=== PATIENT | female | born 2000 | race Two or more races ===

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

== ENCOUNTER 2024-03-18 13:30 | Outpatient (REF) | payer BC, SELFPAY ==
[2024-03-18 18:46] LABS: CT PCR NOT DETECTED (Not Detect.); NG PCR NOT DETECTED (Not Detect.)
== END 2024-03-18 13:31 | disposition home or self-care (01) ==
LOC: HO.LNP 13:30
PROVIDERS: PCP Pediatrics; Visit Provider Advanced Practice Midwife
DX: Z01.419 Encounter for gynecological examination (general) (routine) without abnormal findings (principal); Z20.2 Contact with and (suspected) exposure to infections with a predominantly sexual mode of transmission
CPT/HCPCS: 0353U; 88142

== ENCOUNTER 2024-03-18 13:30 | Outpatient (AMB) | payer BC, SELFPAY ==
--- NOTE | 2024-03-18 13:36 | A.OFFVIS_ITS ---
Vital Signs 03/18/24 13:37 Height 5 ft 1 in Weight 172 lb BMI 32.5 BP 94/50 L Intake Visit Reasons: New Patient Annual Area Development Manager Required: No Information Interpreted: non-clinical & clinical Balloon Pilot: Balloon Pilot Present (Layla) Allergies chickpea Allergy (Mild, Verified 03/18/24 13:41) Difficulty Breathing kiwi Allergy (Mild, Verified 03/18/24 13:41) Swelling Is last menstrual period known: Yes Last menstrual period: 03/06/24 Post menopausal: No HPI Comments Details: She is a premenopausal woman presenting for new patient annual examination. This is her 1st pelvic exam. Doing well with no concerns: irritating skin tag on left groin she is requesting removal. History of PCOS with elevated testosterone level has been on control for many years She tries to eat healthy and stays active with exercise. Currently is not sexually active. She denies vaginal itching and irritation. STI screening offered; she accepts. Denies family history of breast, ovarian or colon cancer. She denies any contraindications to control such as: migraines with aura, history of DVT or pulmonary emboli, high blood pressure, liver disease, thrombolic disorders, Lupus, +GARRY, breast cancer, or smoking. FOR[facility]LY [facility], [facility] Medical History Eczema Asthma Social History (Updated 03/18/24 @ 13:44 by ALONDRA Noel) Alcohol intake: current Alcohol intake frequency: a few times a month Female Reproductive History Menstrual Age of Menarche: 18 Duration of menses: 3-5 days Date of last menstrual period: 03/06/24 control method: pills Total pregnancies: 0 Review of Systems Const All systems reviewed & are unremarkable except as noted in HPI and below Reports as per HPI Eyes Reports no additional complaints ENT Reports no additional complaints Card Reports no additional complaints Resp Reports no additional complaints GI Reports as per HPI and Reports no additional complaints Reports as per HPI Musc Reports no additional complaints Skin/Breast Reports as per HPI Neuro Reports no additional complaints Psych Reports no additional complaints Endo Reports no additional complaints Puma/Lymph Reports no additional complaints Aller/Immun Reports no additional complaints Physical Exam Vital Signs: Last Vital Signs BP 94/50 L 03/18/24 13:37 BMI result Body Mass Index 32.5 Const General: cooperative, healthy appearing, no acute distress, well developed and alert Orientation/consciousness: patient oriented x3 HEENT Head: Yes normal to inspection Eyes General: appearance normal, both eyes and all related structures Neck Neck: Yes normal visual inspection Thyroid: Thyroid normal Chest Chest palpation & inspection: normal inspection of the chest and other (no puckering, dimpling, peau de orange, retraction, discharge, masses) Breast/axilla inspection: normal inspection of the breasts Breast/axilla palpation: normal palpation of the breasts Resp Effort & Inspection: normal respiratory effort GI Inspection: Yes normal to inspection Palpation (GI): Soft to palpation Rectal Exam - Female: deferred Other: Large fleshy lesion, located in the lower left gluteal region, close to skin crease General: Yes bladder normal to palpation External Female Exam: normal external appearance and normal appearance of the urethra Speculum Exam - Vagina: normal appearance of the vagina, normal palpation and normal vaginal discharge Speculum Exam - Cervix: normal appearance of the cervix and normal palpation Bimanual exam- vagina & uterus: normal bimanual exam, normal palpation, uterine size normal, bladder normal to palpation, normal palpation and non-tender Bimanual Exam- Adnexa, other: no masses Skin Other: Acne General skin exam: no rashes or lesions noted Rashes: no rashes Neuro General: patient oriented x3 Cognition (Neuro): normal cognition Extrem General: Yes normal to inspection Psych Attitude: cooperative Thought process: Normal thought process present Assessment & Plan Assessment & Plan (1) Encounter for well woman exam with routine gynecological exam: Code(s): Z01.419 - Encounter for gynecological examination (general) (routine) without abnormal findings Plan Discussed: Current recommendations for pap smears per ASCCP guidelines. Breast awareness and periodic breast exams. Maintain a healthy lifestyle including a well balanced diet and routine exercise. Use condoms for STI and prevention. control hormone use warnings: go to ER if and loss of vision, blindness, severe headache, chest pain or difficulty breathing, severe abdominal pain, or any pain or swelling in an extremity. Schedule follow up with Dr. Pedroza for skin tag assessment, possible removal. Patient verbalizes understanding and agrees to the plan of care. She was given opportunity to ask questions and all questions were answered to the best of my ability. RTO in one year for annual older adult social work specialist examination. This note is constructed using voice recognition software. While every effort has been made to ensure accuracy, tape coater errors may have been included. Orders: Orders CT NG by PCR Today Z20.2 - Contact with and (suspected) exposure to infections with a predominantly sexual mode of transmission Pap Smear Today Z12.4 - Encounter for screening for malignant neoplasm of cervix Medications: New norgestimate-ethinyl estradiol 0.18/0.215/0.25 mg-25 mcg (Ppb-Gy-Ngxhnu) 1 tab PO DAILY 84 tabs 4RF Coding Level of Care Code New Pt Prev Care 18-39yr(05374 Diagnoses Encounter for well woman exam with routine gynecological exam Z01.419
[2024-03-18 13:37] VITALS: BP 94/50; BMI 32.5
== END 2024-03-18 14:34 | disposition home or self-care (01) ==
PROVIDERS: PCP Pediatrics; Visit Provider Advanced Practice Midwife
DX: Z01.419 Encounter for gynecological examination (general) (routine) without abnormal findings (principal)
CPT/HCPCS: 99385

== ENCOUNTER 2024-06-08 11:59 | Outpatient (REF) | payer BC, SELFPAY | END 2024-06-08 12:00 | disposition home or self-care (01) | LOC: HO.LNP 11:59 | PROVIDERS: PCP Pediatrics; Visit Provider Obstetrics & Gynecology | DX: D22.72 Melanocytic nevi of left lower limb, including hip (principal) | CPT/HCPCS: 11402; 88304; 88305 ==

== ENCOUNTER 2024-07-19 10:42 | Outpatient (AMB) | payer BC, SELFPAY ==
--- NOTE | 2024-07-19 10:52 | A.OFFVIS_ITS ---
Vital Signs 07/19/24 10:53 Height 5 ft 1 in Weight 171 lb 15.369 oz BMI 32.5 Intake Visit Reasons: biopsy results Allergies chickpea Allergy (Mild, Verified 06/08/24 12:03) Difficulty Breathing kiwi Allergy (Mild, Verified 06/08/24 12:03) Swelling HPI Comments Details: Presenting for follow up was excision of left thigh skin lesion. Doing well with no complaints. The pathology showed the following: Skin, left thigh, excision: Benign intradermal nevus [facility] Medical History PCOS (polycystic ovarian syndrome) Eczema Asthma Social History Alcohol intake: current Alcohol intake frequency: a few times a month Female Reproductive History Menstrual Age of Menarche: 18 Review of Systems Const All systems reviewed & are unremarkable except as noted in HPI and below Reports as per HPI and Reports no additional complaints GI Reports no additional complaints Reports no additional complaints Physical Exam Vital Signs: BMI result Body Mass Index 32.5 Assessment & Plan Assessment & Plan (1) Skin lesion: Comment: Left thigh area Code(s): L98.9 - Disorder of the skin and subcutaneous tissue, unspecified Category: Medical Plan: Discussed with the patient the results the pathology, the patient was reassured. Instructions given the patient to call in case of recurrence of any lesions any open sores or hard areas. All questions answered, the patient verbalized understanding Coding Level of Care Code Est Pt Level 3 (35308) Diagnoses Skin lesion L98.9
[2024-07-19 10:53] VITALS: BMI 32.5
== END 2024-07-19 13:37 | disposition home or self-care (01) ==
PROVIDERS: PCP Pediatrics; Visit Provider Obstetrics & Gynecology
DX: L98.9 Disorder of the skin and subcutaneous tissue, unspecified (principal)
CPT/HCPCS: 99213

== ENCOUNTER → 2024-07-19 10:42 | Outpatient (BNVA) | payer BC, SELFPAY | PROVIDERS: PCP Pediatrics; Visit Provider Obstetrics & Gynecology ==

== ENCOUNTER 2024-11-03 13:22 | Emergency (ER) | payer BC, SELFPAY ==
[2024-11-03 13:25] VITALS: BP 104/44; BP 135/78; PULSE 73; PULSE 91; RESP 18; TEMP 37; O2SAT 97; O2SAT 98; BMI 34.7
--- NOTE | 2024-11-03 13:25 | ECG_ITS ---
Test Reason : SOB Blood Pressure : / mmHG Vent. Rate : 073 BPM Atrial Rate : 073 BPM P-R Int : 160 ms QRS Dur : 076 ms QT Int : 430 ms P-R-T Axes : 065 070 049 degrees QTc Int : 473 ms Sinus rhythm with marked sinus arrhythmia Otherwise normal ECG No previous ECGs available Referred By: Generic ED Physician Electronically Signed By:STEPHEN JARA
--- NOTE | 2024-11-03 13:52 | ED.GENADULT ---
HPI - General Adult General Chief complaint: General Medical Stated complaint: SOB, sharp abdominal pain, dizziness per ems Time Seen by Provider: 11/03/24 13:36 History of Present Illness HPI narrative: Patient is a 23-year-old female presented today while running in the gym on the treadmill patient felt dizzy short of breath having some abdominal cramping. Had an episode of diarrhea no relief of pain patient had shortness of breath was given 50 of Benadryl by EMS given some fluids. Symptoms seems to have improved. Patient had had similar symptoms while running in the past. She just got on the treadmill and ran 1 mi. There is no fever no chills. There is no chest pain is no diaphoresis. Symptoms seems to have subsided. Each time these episode occur usually it is with running. Related Data Home Medications ?Medication ?Instructions ?Recorded ?Confirmed albuterol sulfate 90 mcg/actuation inhalation 03/18/24 aerosol inhaler tretinoin 0.025 % topical cream appl topical 03/18/24 Previous Rx's ?Medication ?Instructions ?Recorded norgestimate 0.18 mg/0.215 mg/0.25 1 tab PO DAILY #84 tabs 03/18/24 mg-ethinyl estradiol 25 mcg tablet (Boa-Or-Rhzilx) Allergies Allergy/AdvReac Type Severity Reaction Status Date / Time chickpea Allergy Mild Difficulty Verified 11/03/24 13:35 Breathing kiwi Allergy Mild Swelling Verified 06/08/24 12:03 Review of Systems Review of Systems: Positive shortness of breath positive diarrhea patient does not think she is [facility] Past Medical History Attestation statement: The following information was validated with the patient. Medical History PCOS (polycystic ovarian syndrome) Eczema Asthma Social History Social History Alcohol intake: current Alcohol intake frequency: a few times a month Smoked in Last 30 Days: No Use of substances other than those prescribed or required for medical reasons: No Advance Directives: No Physical Exam ED Vital Signs: Vital Signs - 24 hr 11/03/24 13:25 Temperature 98.6 F Pulse Rate 73 Respiratory Rate 18 Blood Pressure 104/44 L Pulse Oximetry 97 Oxygen Delivery Method Room Air BMI result Body Mass Index 34.7 Appearance: Alert. Oriented X3. No acute distress. Eyes: Pupils equal, round and reactive to light. ENT: Pharynx normal. Neck: Normal inspection. Neck supple. No lymph nodes noted. No crepitus CVS: Normal heart rate and rhythm. Pulses normal. Normal S1 and S2 Respiratory: No respiratory distress. Breath sounds normal. No Wheezing. No rales Abdomen: Soft and nontender. No rigidity. No distention. good BS x4 Skin: Skin warm and dry. Normal skin color. Normal skin turgor. Extremities: No lower extremity edema. Neurovascular intact to all extremities. No Lacerations. No Rash Neuro: Oriented X 3. No motor deficit. No sensory deficit. Moving all extermities. No slurred speech Medical Decision Making Medical Decision Making MDM Narrative: Well-appearing no acute distress. Lungs are clear. My interpretation patient's EKG showed a sinus rhythm heart rate is 70 there is significant sinus arrhythmia noted. QRS is normal QTC is normal there is no acute ST segment elevation. Patient's electrolytes were drawn will be checked. Currently symptom free. Will suggest patient not to exercise until follow-up with Cardiology and with primary physician Differential Diagnosis Differential Diagnoses: The differential diagnosis associated with the presentation includes Exercise induced cardiomyopathy, exercise induced asthma, electrolyte disturbance Admission/Observation Consideration of admission/observation: Escalation of care including admission/observation considered Lab Data [facility] Lab Attestation statement: I reviewed the patient's lab results. 11/03/24 14:01 11/03/24 14:01 Labs: Lab Results 11/03/24 11/03/24 Range/Units 14:01 15:21 WBC 11.0 H (4.8-10.8) X10*3/uL RBC 5.09 (4.20-5.50) X10*6/uL Hgb 15.1 (12.0-16.0) g/dl Hct 44.2 (37.0-47.0) % MCV 86.8 (80.0-98.0) fL MCH 29.7 (27.0-33.0) pg MCHC 34.2 (31.0-35.0) g/dl RDW 11.9 (11.0-16.0) % Plt Count 207 (160-400) X10*3/uL MPV 9.2 L (9.4-12.3) fL Immature Gran % (Auto) 0.3 (0.0-0.4) % Neut % (Auto) 72.2 (45-73) % Lymph % (Auto) 23.8 (20-40) % [place] % (Auto) 3.2 (2-11) % Eos % (Auto) 0.4 (0-4) % Baso % (Auto) 0.1 (0-2) % Lymph # (Auto) 2.6 (1.2-4.9) X10*3/uL [place] # (Auto) 0.4 (0.1-1.2) X10*3/uL Eos # (Auto) 0.0 (0.0-0.4) X10*3/uL Baso # (Auto) 0.0 (0.0-0.2) X10*3/uL Abs Immat Gran (auto) 0.03 (0.00-0.03) X10*3/uL Absolute Neuts (auto) 8.0 (2.0-8.3) x10*3/uL Absolute Nucleated RBC 0.000 (0.0-0.012) X10*3/uL Nucleated RBC % (auto) 0.0 (0.0-0.2) /100WBC Sodium 143 (135-145) mmol/L Potassium 3.2 L (3.3-5.1) mmol/L Chloride 108 (96-108) mmol/L Carbon Dioxide 23 (22-29) mmol/L Anion Gap 15 (12-20) BUN 10 (9-16) mg/dL Creatinine 0.75 (0.5-1.4) mg/dL Estim Creat Clear Calc 115.1 Estimated GFR > 60 Random Glucose 119 H (60-115) mg/dL Calcium 8.5 (8.4-10.2) mg/dL Total Bilirubin 1.0 (0.0-1.0) mg/dL AST 40 H (5-31) U/L ALT 47 H (0-31) U/L Alkaline Phosphatase 36 L (39-117) U/L Troponin I High Sens < 2.7 (<3.5-17.0) ng/L Total Protein 6.1 L (6.5-8.0) g/dL Albumin 3.7 (3.5-5.0) g/dL Urine Color Yellow Urine Appearance Cloudy Urine pH 7.0 (5.0-9.0) Ur Specific [place] 1.020 (1.005-1.025) Urine Protein 30 (1+) H (Neg-Trace) mg/dL Urine Glucose (UA) Negative (Negative) mg/dL Urine Ketones Negative (Negative) mg/dL Urine Blood Negative (Negative) Urine Nitrite Negative (Negative) Ur Leukocyte Esterase Negative (Negative) Urine RBC 0-2 (0-2) /HPF Urine WBC 6-10 H (0-5) /HPF Ur Squamous Epith Cells 3-5 (0-2) /HPF Urine Bacteria Trace (None Seen) Hyaline Casts 3-5 (0-2) /LPF Urine Test NEGATIVE (NEGATIVE) Independent Interpretation I performed an independent interpretation of an: EKG (Sinus rhythm heart rate is 70 MI QRS QTC normal there is significant sinus arrhythmia noted.) Discharge Plan Discharge Clinical Impression: Near syncope Patient Disposition: Home, Self-Care Instructions: Near Syncope (ED) Additional Instructions: Please refrain from running until follow-up with Cardiology and with your primary physician Prescriptions: No Action albuterol sulfate 90 mcg/actuation HFA aerosol inhaler inhalation tretinoin 0.025 % cream topical norgestimate-ethinyl estradiol [Uen-Gh-Dedfrj] 0.18/0.215/0.25 mg-25 mcg tablet 1 tab PO DAILY Qty: 84 4RF Referrals: Michel Cade MD [Physician] - 11/07/24 Print Language: Serbian
[2024-11-03 14:05] LABS: MANUAL DIFF FLAG NO
[2024-11-03 14:07] LABS: Basophils Percent Auto 0.1 % (0-2); Eosinophils Percent Auto 0.4 % (0-4); Hematocrit 44.2 % (37.0-47.0); Hemoglobin 15.1 g/dl (12.0-16.0); Imm Gran Abs Auto 0.03 X10*3/uL (0.00-0.03); Imm Gran Pct Auto 0.3 % (0.0-0.4); Lymphocytes Absolute Auto 2.6 X10*3/uL (1.2-4.9); Lymphocytes Percent Auto 23.8 % (20-40); Mean Corpuscular HGB Conc 34.2 g/dl (31.0-35.0); Mean Corpuscular Hemoglobin 29.7 pg (27.0-33.0); Mean Corpuscular Volume 86.8 fL (80.0-98.0); Mean Platelet Volume 9.2 fL (9.4-12.3); Monocytes Absolute Auto 0.4 X10*3/uL (0.1-1.2); Monocytes Percent Auto 3.2 % (2-11); Neutrophils Percent Auto 72.2 % (45-73); Platelet Count 207 X10*3/uL (160-400); Red Blood Count 5.09 X10*6/uL (4.20-5.50); Red Cell Distribution Width 11.9 % (11.0-16.0)
[2024-11-03 14:25] LABS: Albumin Level 3.7 g/dL (3.5-5.0); Anion Gap 15 (12-20); Aspartate Amino Transferase 40 U/L (5-31); Blood Urea Nitrogen 10 mg/dL (9-16); Calcium 8.5 mg/dL (8.4-10.2); Carbon Dioxide 23 mmol/L (22-29); Chloride 108 mmol/L (96-108); Creatinine Clr Calc Pharmacy 115.1; Estimated Glomerular Filt Rate > 60; Glucose Random 119 mg/dL (60-115); Potassium 3.2 mmol/L (3.3-5.1); Sodium 143 mmol/L (135-145); Total Protein 6.1 g/dL (6.5-8.0)
[2024-11-03 14:27] LABS: Troponin-I High Sensitivity < 2.7 ng/L (<3.5-17.0)
[2024-11-03 14:34] LABS: Alanine Aminotransferase 47 U/L (0-31); Alkaline Phosphatase 36 U/L (39-117)
[2024-11-03 15:28] LABS: Appearance Urine Cloudy; Color Urine Yellow; Glucose Urine UA Negative (Negative); Leukocyte Esterase Urine Negative (Negative); Nitrite Urine Negative (Negative); UMIC TRIGGER UACC YES; Urine Blood Negative (Negative); Urine Ketones Negative (Negative); Urine Protein 30 (1+) mg/dL (Neg-Trace)
[2024-11-03 15:31] LABS: Bacteria Urine Trace (None Seen); RBC Urine 0-2 /HPF (0-2); UACC Culture Trigger YES; UPreg QC Valid YES; Urine Pregnancy NEGATIVE (NEGATIVE)
[2024-11-03 16:51] VITALS: BP 104/63; PULSE 80; RESP 16; TEMP 36.6; O2SAT 98
== END 2024-11-03 16:52 | disposition home or self-care (01) ==
PROVIDERS: Emergency Provider Emergency Medicine Emergency Medical Services
DX: R55 Syncope and collapse (principal); R06.02 Shortness of breath; J45.909 Unspecified asthma, uncomplicated; R10.9 Unspecified abdominal pain; Z79.899 Other long term (current) drug therapy
CPT/HCPCS: 36415; 80053; 81001; 81025; 84484; 85025; 87086; 93005; 99283; 99284

== ENCOUNTER → 2024-11-03 13:25 | Outpatient (BNV) | payer BC, SELFPAY | PROVIDERS: Emergency Provider Emergency Medicine Emergency Medical Services; Visit Provider Internal Medicine | DX: R06.02 Shortness of breath (principal) | CPT/HCPCS: 93010 ==

== ENCOUNTER 2025-01-20 14:50 | Outpatient (REF) | payer BC, SELFPAY ==
--- OUTSIDE RECORDS SUMMARY | 2025-01-20 17:01 | XMS_ITS | Encounter Summary ---
Author Organization [facility] Address [address] [place] [address] Phone Care Team Providers Care Writing Center Director Name Role Phone Andria Parks MD Primary Care Provider [phone] Reason for Visit * Reason Comments Med Refill Encounter Details Date Type Department Care Team (Late st Contact Info) Description 06/05/2022 Refill [facility] [place] [address] [place] [address] Andria Parks MD 150 [place] [address] PCOS (polycystic ovarian syndrome) Social History Tobacco [...] is requesting BC refill. Pt transferred to vest front presser to book PE. * Telephone Encounter - Cheri Xiao LPN - 06/05/2022 8:50 AM EDT TEEN RELEASE Faxed refill request / last PE 05/20/21 no pending appts Call to pt [phone] not receiving incoming calls / call to [phone] message left to call theoffice documented in this encounter Plan of Treatment Not on file documented as of this encounter Visit Diagnoses Diagnosis PCOS (polycystic ovarian syndrome) Polycystic ovaries documented in this encounter Care Teams Writing Center Director Relationship Specialty Start Date End Date Andria Parks MD 150 [facility] [place] [address] PCP - General Pediatrics 07/27/23 09/15/23 documented as of this encounter
--- OUTSIDE RECORDS SUMMARY | 2025-01-20 17:01 | XMS_ITS | Clinical Summary ---
Author Organization [facility] Address [address] [place] [address] Phone Care Team Providers Care Belt Molder Name Role Phone Unavailable Primary Care Provider [...] 1 07/28/20 23 Active norgestimate-ethiny l estradiol (Ysv-Oh-Gsqsgh) 0.18/0.215/0.25 MG-25 MCG per tabletIndications:P COS (polycystic [...] does not remember her name (was in [place]) Seasonal allergic rhinitis 05/16/2020 Overview (05/16/2020): On [...] Followed by replacement of Dr. Howell in [place]; pt reports using all Cerave products and recently added OTC Adalapine 0.1% to face Encounters Date Type Department Care Team Description 12/19/2024 Telephone [facility] [place] [phone] Shanice Soler MD Immunizations from Last 3 [...] of Migraines, No family history of Sudden /MA under age 55, No family history of [...] Completed 07/28/2023, 05/16/2020 Procedures * Due to [facility] law, this organization might not be sharing sensitive test results. Procedure Name Priority Date/Time Associated Diagnosis Comments CHLAMYDIA AND GONORRHEA, AMPLIFIED Routine 07/28/2023 4:12 PM EDT Screening examination for bacterial and spirochetal disease from Last 3 Months or Most Recently Relevant to Health Maintenance Results * Due to [place] [employer] law, this organization might not be sharing sensitive test results. * Chlamydia and Gonorrhea, Amplified (07/28/2023 4:12 PM EDT) Chlamydia Trachomatis, DNA Probe NEGATIVE (NEG) [facility] Comment: No Chlamydia Trachomatis RNA detected in this patient's sample ? (REFERENCE RANGE/NORMAL VALUE: NOT DETECTED) ? Note: This test uses house painter helper- mediated amplification method to detect rRNA from C. Trachomatis URINE GC AMP PROBE NEGATIVE (NEG) [facility] Comment: No Neisseria Gonorrhoeae RNA detected in this patient's sample ? (REFERENCE RANGE/NORMAL VALUE: NOT DETECTED) ? NOTE: This test uses house painter helper-mediated amplification method to detect rRNA from N.Gonorrhoeae. [...] without risk of sexual abuse. Consult the [facility] if needed. Contact phone number . Therapeutic failure or success cannot be determined with the Aptima Combo2 assay since nucleic acid may persist following appropriate antimicrobial therapy. The Centers for Disease Control and Prevention (CDC) recommends confirmatory retesting using culture or a different nucleic acid amplification test when positive results occur, if indicated. Testing performed or reported by [facility], a Service of [facility], [address], [place] [address] Rogers Reyes MD, Business Development Assistant [facility]# [id number] Urine (Urine) 07/28/2023 4:1 2 PM EDT 07/29/2023 12:10 AM EDT Andria Parks MD LAB MICROBIOLOGY - GENERAL ORDERABLES Final Result [facility] from Last 3 Months or Most Recently Relevant to [place] [address] [facility] [place] [address] [facility] Member Subscriber Plan / Payer (Ef fective 2014-Present) Name:Kera Rosario Relation to Subscriber:Child Name:FITO ROSARIO Date of :1960 Address: [address] [place] [address] [place] [address] Payer ID:Not on file Type:HMO Address: [address] [place] [id number]
--- OUTSIDE RECORDS SUMMARY | 2025-01-20 17:01 | XMS_ITS | Encounter Summary ---
Author Organization [facility] Address [address] [place] [address] Phone Care Team Providers Care Zone Manager Name Role Phone Andria Parks MD Primary Care Provider Encounter Details Date Type Department Care Team (Late st Contact Info) Description 10/16/2016 Documentation [facility] Family Medicine [address] [place], [place] [phone] Family Medicine, Physician [address] [place], [place] 994571 Social History Tobacco Use Types Packs/Day Years [...] on filedocumented in this encounter Care Teams Zone Manager Relationship Specialty Start Date End Date Andria Parks MD [address] [place] [address] [place] [address] PCP - General Pediatrics 07/27/23 09/15/23 documented as of this encounter
--- OUTSIDE RECORDS SUMMARY | 2025-01-20 17:01 | XMS_ITS | Encounter Summary ---
Author Organization [facility] Address [address] [place] [address] Phone Care Team Providers Care Social Services Counselor Name Role Phone Andria Parks MD Primary Care Provider [phone] Encounter Details Date Type Department Care Team (Late st Contact Info) Description 10/16/2016 Documentation [facility] [place] Family Medicine [address] [place], [place] [phone] Family Medicine, Physician [address] [place], [place] 783641 Social History Tobacco Use Types Packs/Day Years [...] on filedocumented in this encounter Care Teams Social Services Counselor Relationship Specialty Start Date End Date Andria Parks MD [address] [place] [address] [place] [address] PCP - General Pediatrics 07/27/23 09/15/23 documented as of this encounter
--- OUTSIDE RECORDS SUMMARY | 2025-01-20 17:01 | XMS_ITS | Encounter Summary ---
Author Organization [facility] Address [address] [place] [address] Phone Care Team Providers Care Wildlife Ecology Professor Name Role Phone Andria Parks MD Primary Care Provider Encounter Details Date Type Department Care Team (Late st Contact Info) Description 04/18/2013 Documentation [facility] Family Medicine [address] [place], [place] [phone] Family Medicine, Physician [address] [place], [place] 986281 Social History Tobacco Use Types Packs/Day Years [...] on filedocumented in this encounter Care Teams Wildlife Ecology Professor Relationship Specialty Start Date End Date Andria Parks MD [address] [place] [address] [place] [address] PCP - General Pediatrics 07/27/23 09/15/23 documented as of this encounter
--- OUTSIDE RECORDS SUMMARY | 2025-01-20 17:01 | XMS_ITS | Encounter Summary ---
Author Organization [facility] Address [address] [place] [address] Phone Care Team Providers Care Shorer Name Role Phone Andria Parks MD Primary Care Provider Encounter Details Date Type Department Care Team (Late st Contact Info) Description 10/16/2016 Documentation [facility] Family Medicine [address] [place], [place] [phone] Family Medicine, Physician [address] [place], [place] [address]67[address] Social History Tobacco Use Types Packs/Day Years [...] on filedocumented in this encounter Care Teams Shorer Relationship Specialty Start Date End Date Andria Parks MD [address] [place] [address] [place] [address] PCP - General Pediatrics 07/27/23 09/15/23 documented as of this encounter
--- OUTSIDE RECORDS SUMMARY | 2025-01-20 17:01 | XMS_ITS | Encounter Summary ---
Author Organization [facility] Address [address] [place] [address] Phone Care Team Providers Care Diesel Truck Crane Operator Name Role Phone Adnria Parks MD Primary Care Provider [phone] Reason for Visit * Reason Comments Med Refill Encounter Details Date Type Department Care Team (Late st Contact Info) Description 02/13/2020 Refill [facility] [place] 150 [place] [address] Andria Parks MD 150 [place] [address] PCOS (polycystic ovarian syndrome) Social History Tobacco [...] ovaries documented in this encounter Care Teams Diesel Truck Crane Operator Relationship Specialty Start Date End Date Andria Parks MD [address] [place] [address] [place] [address] PCP - General Pediatrics 07/27/23 09/15/23 documented as of this encounter
--- OUTSIDE RECORDS SUMMARY | 2025-01-20 17:01 | XMS_ITS | Encounter Summary ---
Author Organization [facility] Address [address] [place] [address] Phone Care Team Providers Care Compensation And Benefits Manager Name Role Phone Andria Parks MD Primary Care Provider Encounter Details Date Type Department Care Team (Late st Contact Info) Description 01/07/2017 Documentation [facility] [place] [address] [place], [place] [phone] Family Medicine, Physician [address] [place], [place] 903261 Social History Tobacco Use Types Packs/Day Years [...] on filedocumented in this encounter Care Teams Compensation And Benefits Manager Relationship Specialty Start Date End Date Andria Parks MD [address] [place] [address] [place] [address] PCP - General Pediatrics 07/27/23 09/15/23 documented as of this encounter
--- OUTSIDE RECORDS SUMMARY | 2025-01-20 17:01 | XMS_ITS | Encounter Summary ---
Author Organization [facility] Address [address] [place] [address] Phone Care Team Providers Care Dialysis Equipment Technician Name Role Phone Andria Parks MD Primary Care Provider [phone] Reason for Visit * Reason Comments Med Refill Encounter Details Date Type Department Care Team (Late st Contact Info) Description 10/24/2019 Refill [facility] [place] 150 [place] [address] Andria Parks MD 150 [place] [address] PCOS (polycystic ovarian syndrome) Social History Tobacco [...] ovaries documented in this encounter Care Teams Dialysis Equipment Technician Relationship Specialty Start Date End Date Andria Parks MD [address] [place] [address] [place] [address] PCP - General Pediatrics 07/27/23 09/15/23 documented as of this encounter
--- OUTSIDE RECORDS SUMMARY | 2025-01-20 17:01 | XMS_ITS | Encounter Summary ---
Author Organization [facility] Address [address] [place] [address] Phone Care Team Providers Care Toe Trimmer Name Role Phone Andria Parks MD Primary Care Provider Encounter Details Date Type Department Care Team (Late st Contact Info) Description 07/02/2017 Conversion Encounter [facility] 150 [place] [address] Social History Tobacco Use Types Packs/Day Years [...] on filedocumented in this encounter Care Teams Toe Trimmer Relationship Specialty Start Date End Date Andria Parks MD 150 [place] [address] PCP - General Pediatrics 07/27/23 09/15/23 documented as of this encounter
--- OUTSIDE RECORDS SUMMARY | 2025-01-20 17:01 | XMS_ITS | Clinical Summary ---
Author Organization [address] [place] [address] [place] [phone] Phone Care Team Providers Care Motor Vehicle Technician Name Role Phone Thea Alvarenga MD Primary Care Provider [phone] Allergies Active Allergy Reactions Criticality Noted Date [...] PM EST Office Visit Internal Medicine - [place] 175 [facility] [address] [place] [address] Thea Alvarenga MD Near syncope [...] AM EDT Office Visit Internal Medicine - [place] [address] [phone] Thea Alvarenga MD [address] [address] Health Maintenance Due Date Last Done Comments [...] Most Recently Relevant to Health Maintenance Insurance [facility] [place] [id number] [facility] Care Teams Motor Vehicle Technician Relationship Specialty Start Date End Date Thea Alvarenga MD [address] [place] [address] PCP - General 09/21/23
--- OUTSIDE RECORDS SUMMARY | 2025-01-20 17:01 | XMS_ITS | Encounter Summary ---
Author Organization [facility] Address [address] [place] [address] Phone Care Team Providers Care Foreign Service Officer Name Role Phone Andria Parks MD Primary Care Provider Encounter Details Date Type Department Care Team (Late st Contact Info) Description 10/16/2016 Documentation [facility] Family Medicine [address] [place], [place] [phone] Family Medicine, Physician [address] [place], [place] [address] Social History Tobacco Use Types Packs/Day Years [...] on filedocumented in this encounter Care Teams Foreign Service Officer Relationship Specialty Start Date End Date Andria Parks MD [address] [place] [address] [place] [address] PCP - General Pediatrics 07/27/23 09/15/23 documented as of this encounter
[2025-01-20 17:30] LABS: HCG Quantitative < 2 mIU/mL; Thyroid Stimulating Hormone 0.79 uIU/mL (0.32-4.0)
[2025-01-21 19:19] LABS: Prolactin 8.9 ng/mL
[2025-01-30 23:44] LABS: Testosterone, Free 2.6 pg/mL (0.1-6.4); Testosterone, Total 84 ng/dL (2-45)
== END 2025-01-20 14:51 | disposition home or self-care (01) ==
LOC: HO.LAB 14:50
PROVIDERS: Visit Provider Obstetrics & Gynecology
DX: L68.0 Hirsutism (principal); L70.9 Acne, unspecified
CPT/HCPCS: 36415; 83498; 84146; 84402; 84403; 84443; 84702

== ENCOUNTER 2025-01-20 14:50 | Outpatient (AMB) | payer BC, SELFPAY ==
[2025-01-20 14:55] VITALS: BP 104/60
--- NOTE | 2025-01-20 14:55 | MHC.OFFVIS ---
Vital Signs 01/20/25 14:55 BP 104/60 Intake Visit Reasons: wants referral to endo Mailroom Associate: Mailroom Associate Present (Yadi) Accompanied by: Self / Same As Patient Allergies chickpea Allergy (Mild, Verified 01/20/25 14:55) Difficulty Breathing kiwi Allergy (Mild, Verified 01/20/25 14:55) Swelling HPI Comments Details: Presenting complaining of a long-term history of hair growth and acne. The patient was diagnose with? PCOS since then has been on control pills PFSH Medical History PCOS (polycystic ovarian syndrome) Eczema Asthma Social History Alcohol intake: current Alcohol intake frequency: a few times a month Female Reproductive History Menstrual Age of Menarche: 18 Review of Systems Const All systems reviewed & are unremarkable except as noted in HPI and below Reports as per HPI and Reports no additional complaints GI Reports no additional complaints Reports no additional complaints Physical Exam Vital Signs: Last Vital Signs BP 104/60 01/20/25 14:55 Assessment & Plan Assessment & Plan (1) Hirsutism: Code(s): L68.0 - Hirsutism Category: Medical Plan: Will order TSH, prolactin hCG, 17 hydroxyprogesterone, testosterone total and free and pelvic ultrasound. Instructions given the patient to schedule ultrasound and a follow-up appointment. All questions answered, the patient verbalized understanding. Orders: Orders Prolactin Today L68.0 - Hirsutism, L70.9 - Acne, unspecified HCG Quantitative Today L68.0 - Hirsutism, L70.9 - Acne, unspecified Thyroid Stimulating Hormone Today L68.0 - Hirsutism, L70.9 - Acne, unspecified Testosterone, Free/Total Today L68.0 - Hirsutism, L70.9 - Acne, unspecified 17 Hydroxyprogesterone Today L68.0 - Hirsutism, L70.9 - Acne, unspecified US pelvic and transvaginal Today L68.0 - Hirsutism, L70.9 - Acne, unspecified Coding Level of Care Code Est Pt Level 3 (75710) Diagnoses Hirsutism L68.0
--- OUTSIDE RECORDS SUMMARY | 2025-01-20 16:32 | XMS_ITS | Encounter Summary ---
Author Organization [facility] Address [address] [place] [address] Phone Care Team Providers Care Blood Donor Unit Assistant Name Role Phone Andria Parks MD Primary Care Provider [phone] Encounter Details Date Type Department Care Team (Late st Contact Info) Description 10/16/2016 Documentation [facility] [place] Family Medicine [address] [place], [place] [id number] Family Medicine, Physician [address] [place], [place] [phone] Social History Tobacco Use Types Packs/Day Years Used Date Smoking Tobacco: Never Assessed Comments Unknown Sex and Gender Information Value Date Recorded Sex Assigned at Not on file Legal Sex Female 4:56 PM EDT Gender Identity Female 09/24/2020 8:09 AM EST Sexual Orientation Straight 07/28/2023 9: 45 PM EDT documented as of this encounter Plan of Treatment Not on file documented as of this encounter Visit Diagnoses Not on filedocumented in this encounter Care Teams Blood Donor Unit Assistant Relationship Specialty Start Date End Date Andria Praks MD [address] [place] [address] [place] [address] PCP - General Pediatrics 07/27/23 09/15/23 documented as of this encounter
--- OUTSIDE RECORDS SUMMARY | 2025-01-20 16:32 | XMS_ITS | Encounter Summary ---
Author Organization [facility] Address [address] [place] [phone] Phone Care Team Providers Care Pipelaying Fitter Name Role Phone Andria Parks MD Primary Care Provider Encounter Details Date Type Department Care Team (Late st Contact Info) Description 01/07/2017 Documentation [facility] [place] Family Medicine [address] [place], [place] [phone] Family Medicine, Physician [address] [place], [place] [address] Social History Tobacco Use Types Packs/Day Years [...] on filedocumented in this encounter Care Teams Pipelaying Fitter Relationship Specialty Start Date End Date Andria Parks MD [address] [place] [address] [place] [address] PCP - General Pediatrics 07/27/23 09/15/23 documented as of this encounter
--- OUTSIDE RECORDS SUMMARY | 2025-01-20 16:32 | XMS_ITS | Encounter Summary ---
Author Organization [facility] Address [address] [place] [address] Phone Care Team Providers Care Auto Vinyl Top Installer Name Role Phone Andria Parks MD Primary Care Provider [phone] Reason for Visit * Reason Comments Med Refill Encounter Details Date Type Department Care Team (Late st Contact Info) Description 02/13/2020 Refill [facility] [address] [place] [address] Andria Parks MD [address] [place] [address] PCOS (polycystic ovarian syndrome) Social History Tobacco Use Types Packs/Day Years Used Date Smoking Tobacco: Never Smokeless Tobacco: Never Comments:Never smoker Alcohol Use Standard Drinks/Week Comments No 0 (1 standard drink = 0.6 oz pur e alcohol) Hunger/Food Answer Date Recorded No 05/03/2019 Stable Housing Answer Date Recorded No 11/17/2019 Transportation Concerns Answer Date Rec orded No 05/03/2019 Hazards in Home Answer Date Recorded Yes 05/03/2019 Financing Utilities Answer Date Recorde d No 05/03/2019 Safety at Home Answer Date Recorded No 05/03/2019 Outside Support Answer Date Recorded No 05/03/2019 Understanding Health Concerns Answer Da te Recorded No 05/03/2019 Financing Health Concerns Answer Date R ecorded No 05/03/2019 Missing School or Work Answer Date Valdez rded No 05/03/2019 Comments No Sex and Gender Information Value Date Recorded Sex Assigned at Not on file Legal Sex Female 4:56 PM EDT Gender Identity Female 09/24/2020 8:09 AM EST Sexual Orientation Straight 07/28/2023 9: 45 PM EDT documented as of this encounter Miscellaneous Notes * Telephone Encounter - Andria Parks MD - 02/13/2020 1:38 PM EDT Script sent. PPP * Telephone Encounter - Kaylah Baker LPN - 02/13/2020 11:32 AM EDT Needs refill on ocp's. Last pe 05/04 Last office visit 11/03 documented in this encounter Plan of Treatment Not on file documented as of this encounter Visit Diagnoses Diagnosis PCOS (polycystic ovarian syndrome) Polycystic ovaries documented in this encounter Care Teams Auto Vinyl Top Installer Relationship Specialty Start Date End Date Andria Parks MD [address] [place] [address] [place] [address] PCP - General Pediatrics 07/27/23 09/15/23 documented as of this encounter
--- OUTSIDE RECORDS SUMMARY | 2025-01-20 16:32 | XMS_ITS | Encounter Summary ---
Author Organization [facility] Address [address] [place] [address] Phone Care Team Providers Care Institute Director Name Role Phone Andria Parks MD Primary Care Provider Encounter Details Date Type Department Care Team (Late st Contact Info) Description 07/02/2017 Conversion Encounter [facility] [address] [place] [address] Social History Tobacco Use Types Packs/Day Years Used Date Smoking Tobacco: Never Comments:Never smoker Comments Unknown Sex and Gender Information Value Date Recorded Sex Assigned at Not on file Legal Sex Female 4:56 PM EDT Gender Identity Female 09/24/2020 8:09 AM EST Sexual Orientation Straight 07/28/2023 9: 45 PM EDT documented as of this encounter Plan of Treatment Not on file documented as of this encounter Visit Diagnoses Not on filedocumented in this encounter Care Teams Institute Director Relationship Specialty Start Date End Date Andria Parks MD [address] [place] [address] PCP - General Pediatrics 07/27/23 09/15/23 documented as of this encounter
--- OUTSIDE RECORDS SUMMARY | 2025-01-20 16:32 | XMS_ITS | Encounter Summary ---
Author Organization [facility] Address [address] [place] [address] Phone Care Team Providers Care Mechanotherapist Name Role Phone Andria Parks MD Primary Care Provider Encounter Details Date Type Department Care Team (Late st Contact Info) Description 10/16/2016 Documentation [facility] [place] Family Medicine [address] [place], [place] [phone] Family Medicine, Physician [address] [place], [place] [phone] Social History Tobacco Use Types Packs/Day Years [...] on filedocumented in this encounter Care Teams Mechanotherapist Relationship Specialty Start Date End Date Andria Parks MD [address] [place] [address] [place] [address] PCP - General Pediatrics 07/27/23 09/15/23 documented as of this encounter
--- OUTSIDE RECORDS SUMMARY | 2025-01-20 16:32 | XMS_ITS | Clinical Summary ---
Author Organization [facility] Address [address] [place] [phone] Phone Care Team Providers Care Gang Leader Name Role Phone Unavailable Primary Care Provider Unavailabl e Allergies Active Allergy Reactions Criticality Noted Date Comments Environmental 03/30/2018 Food Hives 12/30/2017 Kiwi Gluten (Food) Anaphylaxis High 07/28/2023 Chick peas Medications Spacer/Aero-Holding Chambers (OPTICHAMBER ADVANTAGE) miscIndications:Mil d intermittent asthma without complication Use with inhaler as instructed 1 each 03/30/20 18 Active cetirizine (ZyrTEC Allergy) 10 MG tabletIndications:P ruritus of skin Take 1 tablet (10 mg total) by mouth daily as needed (itchy skin). 30 tablet 12/14/19 21 Active ProAir HFA 108 (90 Base) MCG/ACT inhalerIndications: Mild intermittent asthma without complication INHALE 2 PUFFS BY MOUTH EVERY 4 HOURS NEEDED FOR WHEEZING 1 Units 05/06/20 21 Active spironolactone 50 MG tablet 09/11/20 21 Active triamcinolone 0.1 % ointmentIndications :Intrinsic eczema Apply topically 2 (two) times a day as needed for rash. 45 g 1 07/02/20 22 Active Additional Information Patient not taking.Reported on 07/28/2023 hydrOXYzine 10 MG tabletIndications:A nxiety Take 1 tablet (10 mg total) by mouth every 8 (eight) hours as needed for anxiety for up to 10 days. 30 tablet 07/02/20 22 Active Levocetirizine Dihydrochloride (XYZAL PO) Take by mouth. Acti ve albuterol HFA 108 (90 Base) MCG/ACT inhalerIndications: Mild intermittent asthma without complication Inhale 2 puffs every 4 (four) hours as needed for wheezing or shortness of breath. 1 Units 07/28/20 23 Active Spacer/Aero-Holding Chambers (OptiChamber Hiwot) miscIndications:Mil d intermittent asthma without complication Use with MDI as instructed 1 each 1 07/28/20 23 Active norgestimate-ethiny l estradiol (Geg-Ju-Utqbge) 0.18/0.215/0.25 MG-25 MCG per tabletIndications:P COS (polycystic ovarian syndrome) TAKE 1 TABLET BY MOUTH EVERY DAY IN THE MORNING 84 tablet 3 07/29/20 23 Active Active Problems Problem Noted Date Diagnosed Date Class 1 obesity 07/28/2023 History of COVID-19 11/13/2020 Overview (11/18/2021): Tested At Stop [facility] Spread [facility] on 11/12/2020 11/15/2021: Positive for Covid again Assessment & Plan (11/18/2021 2:57 PM EST): Second time patient has had Covid. Previously had Covid on 11/12/2020. I strongly encouraged that she get the Covid 19 vaccine when she is feeling better. I have also recommended the flu vaccine for her. Assessment & Plan (12/14/2020 11:39 AM EST): Pt afeb no URI symptoms; now doing well except rash on neck x 1 week Anxiety disorder 10/15/2020 Overview (05/20/2021): Better in 2020 since she moved out of Mom's home. Had a therapist but took a break - was too busy. She does not remember her name (was in [place]) Seasonal allergic rhinitis 05/16/2020 Overview (05/16/2020): On Xyzal Influenza vaccine refused 09/30/2019 Overview (09/30/2019): Declined 09/2019 PCOS (polycystic ovarian syndrome) 08/31/2018 Overview (05/16/2020): Seen by [facility] 08/03 - had delayed menarche, hirsutism and elevated testosterone. Prolactin was high but normalized. Started on OCPs to help slow the growth of new hair. Had virtual visit a couple of weeks ago - may start on a new medication Mild intermittent asthma without complication Overview (05/05/2019): Albuterol as needed BMI (body mass index), pedia tric, greater than or equal to 95% for age 0403/11/2011 Atopic dermatitis 03/05/2010 Overview (05/16/2020): Severe - followed by Derm Assessment & Plan (12/14/2020 11:40 AM EST): Followed by replacement of Dr. Howell in [place]; pt reports using all Cerave products and recently added OTC Adalapine 0.1% to face Encounters Date Type Department Care Team Description 12/19/2024 Telephone [facility] [place] [phone] Shanice Soler MD Immunizations from Last 3 Months Immunizations Immunization Administration Dates Next Due DTaP 5 12/05/2005, 3,06/20/2002, 002,02/11/2002 HPV Vaccine 9 Valent 08/29/2016,04/28/2016 HPV, Quadrivalent 04/10/2015 Hep A, ped/adol 10/19/2014,04/03/2014 Hep B, ped/adol 09/02/2002,2001,2001 Hib (PRP-T) 02/28/2003, 2,04/15/2002, 002 IPV 12/05/2005, 2,04/15/2002, 002 MMR 12/05/2005,11/28/2002 Meningococcal B Trumenba 07/28/2023,05/16/2020 Meningococcal Conj (Menactra) MCV4P 05/03/2019,0 03/15/2013 Pneumococcal Conjugate 06/05/2003,2001,04/15/2002, 002 Tdap 07/28/2023,03/15/2013 Varicella 04/03/2014,11/28/2002 Family History Medical History Relation Name Comments No Known Problems Father Fito Rosario No Known Problems Mother Amber Rosario Relation Name Status Comments Father Fito Rosario Alive Father: Alive a nd well Half-Brother Alive Half brother (P ): Alive and well Half-Sister Alive Half sister (P) : Alive and well, Alive and well Mother Amber Rosario Alive Mother: Alive and well Other No family histo ry of Developmental dislocation of hip, No family history of Autism, No family history of Seizure disorder, No family history of ADD/ADHD, No family history of Deafness, No family history of Diabetes mellitus, No family history of Elevated cholesterol, No family history of Migraines, No family history of Sudden /HI under age 55, No family history of Obesity, No family history of Asthma, No family history of Strabismus/amblyopia Social History Tobacco Use Types Packs/Day Years Used Date Smoking Tobacco: Never Smokeless Tobacco: Never Tobacco Cessation:Counseling Given: Yes Comments:Never smoker Alcohol Use Standard Drinks/Week Comments No 0 (1 standard drink = 0.6 oz pur e alcohol) Hunger/Food Answer Date Recorded In the last 12 months, did y ou or your family ever eat less than you felt you should because there wasn't enough money for food? No 07/28/2023 Stable Housing Answer Date Recorded Are you worried that in the next 2 months you may not have stable housing? No 07/28/2023 Transportation Concerns Answer Date Rec orded In the last 12 months, have you or your family ever had to go without healthcare because you didn't have a way to get there? No 07/28/2023 Hazards in Home Answer Date Recorded Think about the place you li ve. Do you have problems with any of the following? Pests (mice or roaches), mold, no/not working smoke detectors, water leaks, no window guards. No 2022 Financing Utilities Answer Date Recorde d In the last 12 months, has t he electric, gas, oil, or water company threatened to shut off your services in your home? No 07/28/2023 Safety at Home Answer Date Recorded Are you or your family worried about feeling saf e in your home? No 07/28/2023 Outside Support Answer Date Recorded Do you feel that you need mo re support from other people or programs to help you care for yourself or your family? Yes 07/28/2023 Understanding Health Concerns Answer Da te Recorded Do you need help understandi ng your or your child's healthcare needs (diagnosis, medications, plan, etc.)? No 07/28/2023 Financing Health Concerns Answer Date R ecorded In the last 12 months, was t here a time when your child needed to see a doctor or get medications or supplies but could not because of cost? No 07/28/2023 Missing School or Work Answer Date Valdez rded Did you or your child miss s chool or work because of a health problem that could have been avoided? No 07/28/2023 Comments No Sex and Gender Information Value Date Recorded Sex Assigned at Not on file Legal Sex Female 4:56 PM EDT Gender Identity Female 09/24/2020 8:09 AM EST Sexual Orientation Straight 07/28/2023 9: 45 PM EDT Last Filed Vital Signs Vital Sign Reading Time Taken Comments Blood Pressure 114/67 07/28/2023 3:04 PM EDT Pulse 87 07/28/2023 3:04 PM EDT Temperature 36.1 ??C (97 ??F) 07/02/2022 9:27 AM EDT Respiratory Rate 18 04/28/2018 3:35 PM EDT Oxygen Saturation 100% 03/24/2022 3:59 PM EDT Inhaled Oxygen Concentration - - Weight 76.4 kg (168 lb 6.4 oz) 07/28/2023 3:04 P M EDT Height 154 cm (5' 0.63 ) 07/28/2023 3:04 PM EDT Body Mass Index 32.21 07/28/2023 3:04 PM EDT Plan of Treatment Health Maintenance Due Date Last Done Comments Influenza Vaccines (#1) 2024 COVID-19 Vaccine ( - 2023-2 5 season) 2024 DTaP,Tdap,and Td Vaccines (8 - Td or Tdap) 07/28/2033 07/28/2023, 03/15/2013, 12/05/2005, Additional history exists Hepatitis B Vaccines Completed 09/02/2002, 2001, 2001 HIB Vaccines Completed 02/28/2003, 03/2002, 04/15/2002, Additional history exists Pneumococcal Vaccine Completed 06/05/2003, 06/20/2002, 04/15/2002, Additional history exists IPV Vaccines Completed 12/05/2005, 08/16, 04/15/2002, Additional history exists MMR Vaccines Completed 12/05/2005, 11/28/2002 Varicella Vaccines Completed 04/03/2014, 11/28/2002 Hepatitis A Vaccines Completed 10/19/2014, 04/03/20 14 HPV Vaccines Completed 08/29/2016, 04/16, 04/10/2015 Meningococcal Vaccine Completed 05/03/2019, 013 Men B Vaccine Completed 07/28/2023, 05/16/2020 Procedures * Due to [facility] law, this organization might not be sharing sensitive test results. Procedure Name Priority Date/Time Associated Diagnosis Comments CHLAMYDIA AND GONORRHEA, AMPLIFIED Routine 07/28/2023 4:12 PM EDT Screening examination for bacterial and spirochetal disease from Last 3 Months or Most Recently Relevant to Health Maintenance Results * Due to [place] [employer] law, this organization might not be sharing sensitive test results. * Chlamydia and Gonorrhea, Amplified (07/28/2023 4:12 PM EDT) Chlamydia Trachomatis, DNA Probe NEGATIVE (NEG) [facility] Comment: No Chlamydia Trachomatis RNA detected in this patient's sample ? (REFERENCE RANGE/NORMAL VALUE: NOT DETECTED) ? Note: This test uses preventive medicine officer- mediated amplification method to detect rRNA from C. Trachomatis URINE GC AMP PROBE NEGATIVE (NEG) [facility] Comment: No Neisseria Gonorrhoeae RNA detected in this patient's sample ? (REFERENCE RANGE/NORMAL VALUE: NOT DETECTED) ? NOTE: This test uses preventive medicine officer-mediated amplification method to detect rRNA from N.Gonorrhoeae. A negative result does not preclude infection. In the case of a negative urine result, testing of an endocervical(female) or urethral (male) specimen is recommended if there is high clinical suspicion of infection. Due to very high sensitivity of Nucleic Acid Amplification Test, false positive results may occur. Therefore, specimen handling is extremely important. In patients in whom the disease is unlikely, additional sample for testing should be considered after an initial positive result. The performance characteristics of this test have not been evaluated in children. The Aptima Combo2 assay is not intended for the evaluation of suspected sexual abuse or for other medico-legal indications. The ordering provider should assess if the patient had consensual sex without risk of sexual abuse. Consult the [facility] if needed. Contact phone number . Therapeutic failure or success cannot be determined with the Aptima Combo2 assay since nucleic acid may persist following appropriate antimicrobial therapy. The Centers for Disease Control and Prevention (CDC) recommends confirmatory retesting using culture or a different nucleic acid amplification test when positive results occur, if indicated. Testing performed or reported by [facility], a Service of [facility], [address], [place] [address] [place] Reyes MD, Clearing Inspector [facility]# [id number] Urine (Urine) 07/28/2023 4:1 2 PM EDT 07/29/2023 12:10 AM EDT Andria Parks MD LAB MICROBIOLOGY - GENERAL ORDERABLES Final Result [facility] from Last 3 Months or Most Recently Relevant to [place] [address] [facility] [facility] [place] [address] [employer] [place] [employer] Member Subscriber Plan / Payer (Ef fective 2014-Present) Name:Kera Rosario Relation to Subscriber:Child Name:FITO ROSARIO Date of :1961 Address: [address] [place] [address] [place] [address] Payer ID:Not on file Type:HMO Address: [address] [place] [id number]
--- OUTSIDE RECORDS SUMMARY | 2025-01-20 16:32 | XMS_ITS | Encounter Summary ---
Author Organization [facility] Address [address] [place] [address] Phone Care Team Providers Care Watershed Coordinator Name Role Phone Andria Parks MD Primary Care Provider [phone] Reason for Visit * Reason Comments Med Refill Encounter Details Date Type Department Care Team (Late st Contact Info) Description 10/24/2019 Refill [facility] [place] [address] [place] [address] Andria Parks MD [address] [place] [address] PCOS (polycystic ovarian syndrome) Social History Tobacco Use Types Packs/Day Years Used Date Smoking Tobacco: Never Smokeless Tobacco: Never Comments:Never smoker Alcohol Use Standard Drinks/Week Comments No 0 (1 standard drink = 0.6 oz pur e alcohol) Hunger/Food Answer Date Recorded No 05/03/2019 Stable Housing Answer Date Recorded 0 05/03/2019 Transportation Concerns Answer Date Rec orded No [...] Telephone Encounter - Andria Parks MD - 10/24/2019 5:31 PM EST Script sent. PPP * Telephone Encounter - Nadia Watts LPN - 10/24/2019 3:25 PM EST Refill request for OCP's. Last PE 05/03/19/JOD documented in this encounter Plan of Treatment Not on file documented as of this encounter Visit Diagnoses Diagnosis PCOS (polycystic ovarian syndrome) Polycystic ovaries documented in this encounter Care Teams Watershed Coordinator Relationship Specialty Start Date End Date Andria Parks MD [address] [place] [address] [place] [address] PCP - General Pediatrics 07/27/23 09/15/23 documented as of this encounter
--- OUTSIDE RECORDS SUMMARY | 2025-01-20 16:32 | XMS_ITS | Encounter Summary ---
Author Organization [facility] Address [address] [place] [address] Phone Care Team Providers Care Foam Machine Operator Name Role Phone Andria Parks MD Primary Care Provider Encounter Details Date Type Department Care Team (Late st Contact Info) Description 10/16/2016 Documentation [facility] [place] [address] [place], [place] [phone] Family Medicine, Physician [address] [place], [place] [phone] Social History Tobacco Use Types Packs/Day Years [...] on filedocumented in this encounter Care Teams Foam Machine Operator Relationship Specialty Start Date End Date Andria Parks MD [address] [place] [address] [place] [address] PCP - General Pediatrics 07/27/23 09/15/23 documented as of this encounter
--- OUTSIDE RECORDS SUMMARY | 2025-01-20 16:32 | XMS_ITS | Encounter Summary ---
Author Organization [facility] Address [address] [place] [address] Phone Care Team Providers Care Plan Nurse Name Role Phone Andria Parks MD Primary Care Provider Encounter Details Date Type Department Care Team (Late st Contact Info) Description 10/16/2016 [place]ation [facility] [place] [address] [place], [place] [phone] Family Medicine, Physician [address] [place], [place] [phone] Social History Tobacco Use Types Packs/Day Years [...] on filedocumented in this encounter Care Teams Plan Nurse Relationship Specialty Start Date End Date Andria Parks MD [address] [place] [address] [place] [address] PCP - General Pediatrics 07/27/23 09/15/23 documented as of this encounter
--- OUTSIDE RECORDS SUMMARY | 2025-01-20 16:32 | XMS_ITS | Encounter Summary ---
Author Organization [facility] Address [address] [place] [address] Phone Care Team Providers Care Lead Portfolio Manager Name Role Phone Andria Parks MD Primary Care Provider Encounter Details Date Type Department Care Team (Late st Contact Info) Description 04/18/2013 Documentation [facility] [place] [address] [place], [place] [phone] Family Medicine, Physician [address] [place], [place] [phone] Social History Tobacco Use Types Packs/Day Years [...] on filedocumented in this encounter Care Teams Lead Portfolio Manager Relationship Specialty Start Date End Date Andria Parks MD [address] [place] [address] [place] [address] PCP - General Pediatrics 07/27/23 09/15/23 documented as of this encounter
--- OUTSIDE RECORDS SUMMARY | 2025-01-20 16:32 | XMS_ITS | Encounter Summary ---
Author Organization [facility] Address [address] [place] [address] Phone Care Team Providers Care Audioprosthologist Name Role Phone Andria Parks MD Primary Care Provider [phone] Reason for Visit * Reason Comments Med Refill Encounter Details Date Type Department Care Team (Late st Contact Info) Description 06/05/2022 Refill [facility] [place] [address] [place] [address] Andria Parks MD [address] [place] [address] PCOS (polycystic ovarian syndrome) Social History Tobacco [...] there wasn't enough money for food? No 05/20/2021 Stable Housing Answer Date Recorded Are you worried that in the next 2 months you may not have stable housing? No 05/20/2021 Transportation Concerns Answer Date Rec orded In the last 12 months, have you or your family ever had to go without healthcare because you didn't have a way to get there? No 05/20/2021 Hazards in Home Answer Date Recorded Think about the place you li ve. Do you have problems with any of the following? Pests (mice or roaches), mold, no/not working smoke detectors, water leaks, no window guards. No 2020 Financing Utilities Answer Date Recorde d In the last 12 months, has t he electric, gas, oil, or water company threatened to shut off your services in your home? No 05/20/2021 Safety at Home Answer Date Recorded Are you or your family worried about feeling saf e in your home? No 05/20/2021 Outside Support Answer Date Recorded Do you feel that you need mo re support from other people or programs to help you care for yourself or your family? No 05/20/2021 Understanding Health Concerns Answer Da te Recorded Do you need help understandi ng your or your child's healthcare needs (diagnosis, medications, plan, etc.)? No 05/20/2021 Financing Health Concerns Answer Date R ecorded In the last 12 months, was t here a time when your child needed to see a doctor or get medications or supplies but could not because of cost? No 05/20/2021 Missing School or Work Answer Date Valdez rded Did you or your child miss s chool or work because of a health problem that could have been avoided? No 05/20/2021 Comments No Sex and Gender Information Value Date Recorded Sex Assigned at Not on file Legal Sex Female 4:56 PM EDT Gender Identity Female 09/24/2020 8:09 AM EST Sexual Orientation Straight 07/28/2023 9: 45 PM EDT documented as of this encounter Miscellaneous Notes * Telephone Encounter - Andria Parks MD - 06/05/2022 1:14 PM EDT Script sent. Has PE scheduled for June. PPP * Telephone Encounter - Luz Marina Jaimes LPN - 06/05/2022 11:11 AM EDT Pt returning call. Pt is requesting BC refill. Pt transferred to front end developer to book PE. * Telephone Encounter - Cheri Xiao LPN - 06/05/2022 8:50 AM EDT TEEN RELEASE Faxed refill request / last PE 05/20/21 no pending appts Call to pt [phone] not receiving incoming calls / call to [phone] message left to call theoffice documented in this encounter Plan of Treatment Not on file documented as of this encounter Visit Diagnoses Diagnosis PCOS (polycystic ovarian syndrome) Polycystic ovaries documented in this encounter Care Teams Audioprosthologist Relationship Specialty Start Date End Date Andria Parks MD [address] [facility] [place] [address] PCP - General Pediatrics 07/27/23 09/15/23 documented as of this encounter
--- OUTSIDE RECORDS SUMMARY | 2025-01-20 16:32 | XMS_ITS | Clinical Summary ---
Author Organization [address] [place] [address] [place] [phone] Phone Care Team Providers Care Orthotic Technician Name Role Phone Thea Alvarenga MD Primary Care Provider [phone] Allergies Active Allergy Reactions Criticality Noted Date Comments Kiwi (Actinidia Chinensis) 4 Medications cetirizine (ZyrTEC) 10 mg tablet Take 1 Tablet by mouth 2 times daily. 4 Active colloidal oatmeaL (Eucerin Eczema Relief) 2 % cleanser Apply 1 g topically daily. 4 Active hydrocortisone 2.5 % cream Apply 2 times/day for 3 weeks 4 Active montelukast (SINGULAIR) 10 mg tablet Take 1 Tablet by mouth at bedtime for 360 days. 4 06/29/20 25 Active albuterol HFA (PROAIR HFA ; PROVENTIL HFA ; VENTOLIN HFA) 90 mcg/actuation inhaler Inhale 2 puffs by mouth every 4 (four) hours if needed for wheezing or shortness of breath. 6.7 g 11 5 12/05/19 26 Active Active Problems Problem Noted Date Diagnosed Date Asthma 01/14/2024 Eczema 01/14/2024 Obesity (BMI 30-39.9) 12/25/2023 Encounters Date Type Department Care Team Description 12/05/2024 3:00 PM EST Office Visit Internal Medicine - [place] 175 [facility] [address] [place] [address] Thea Alvarenga MD Near syncope (Primary Dx); Obesity (BMI 30-39.9); Mild intermittent asthma, unspecified whether complicated from Last 3 Months Immunizations Name Administration Dates Next Due Tdap Tetanus diptheria acell ular pertussis (Boostrix; Adacel) 7yo and older 12/23/2023 Surgical History Surgery Date Site/Laterality Comments OTHER SURGICAL HISTORY 2017 Bilateral PROCEDURE: EXTRACTION ERUPTED TOOTH/EXR Medical History Medical History Date Comments Obesity (BMI 30-39.9) 12/25/2023 DX:Obesity (BMI 30-39.9) Eczema 01/14/2024 DX:Eczema Asthma 01/14/2024 DX:Asthma Family History Relation Name Status Comments Maternal Grandfather Maternal Grandmother Alive Paternal Grandfather Paternal Grandmother Alive Social History Tobacco Use Types Packs/Day Years Used Date Smoking Tobacco: Never Smokeless Tobacco: Never Tobacco Cessation:Counseling Given: Not Answered Alcohol Use Standard Drinks/Week Comments Yes 0 (1 standard drink = 0.6 oz pur e alcohol) Comments Unknown Sex and Gender Information Value Date Recorded Sex Assigned at Not on file Legal Sex Female 11:04 AM EDT Gender Identity Not on file Sexual Orientation Not on file Obstetrics History Last Filed Vital Signs Vital Sign Reading Time Taken Comments Blood Pressure 122/74 12/05/2024 3:16 PM EST Pulse 80 12/05/2024 3:16 PM EST Temperature 36.7 ??C (98.1 ??F) 12/05/2024 3:16 PM ES T Respiratory Rate - - Oxygen Saturation 100% 12/05/2024 3:16 PM EST Inhaled Oxygen Concentration - - Weight 81.6 kg (180 lb) 12/05/2024 3:16 PM EST Height 154.9 cm (5' 1 ) 12/05/2024 3:16 PM EST Body Mass Index 34.01 12/05/2024 3:16 PM EST Plan of Treatment Upcoming Encounters Date Type Department Care Team (Late st Contact Info) Description 07/06/2025 11:30 AM EDT Office Visit Internal Medicine - [place] [address] [phone] Thea Alvarenga MD [address] [address] Health Maintenance Due Date Last Done Comments Gonorrhea/Chlamydia Screening 2001 Pneumococcal Vaccine: Pediatrics (0 to 5 Years) and At-Risk Patients (6 to 64 Years) (1 of 1 - PPSV23) 2007 06/05/2003, 06/20/2002, 04/15/2002, Additional history exists Cervical Cancer Screening: Pap Smear 2022 Depression Screening 06/09/2024 HIV Screening 06/09/2024 Social Influencers of Health Screening 06/09/2024 COVID-19 Vaccine ( season) 2024 Influenza Vaccine (#1) 2024 Cholesterol Screening (Lipid Panel) 12/25/2028 12/25/2023 DTaP,Tdap,and Td Vaccines (9 - Td or Tdap) 12/23/2033 12/23/2023, 07/28/2023, 03/15/2013, Additional history exists Hepatitis B Vaccines Completed 09/02/2002, 2001, 2001 HIB Vaccines Completed 02/28/2003, 03/2002, 04/15/2002, Additional history exists IPV Vaccines Completed 12/05/2005, 08/16, 04/15/2002, Additional history exists MMR Vaccines Completed 12/05/2005, 11/28/2002 Varicella Vaccines Completed 04/03/2014, 11/28/2002 Hepatitis A Vaccines Completed 10/19/2014, 04/03/20 14 HPV Vaccines Completed 08/29/2016, 04/16, 04/10/2015 Meningococcal ACWY Vaccine Completed 05/03/2019, Meningococcal B Vacine Completed 07/28/2023, 2019 Hepatitis C Screening Completed 12/25/2023 RSV Immunization Patients Under 20 months Aged Out No longer eligible based on patient's age to complete this topic Procedures Procedure Name Priority Date/Time Associated Diagnosis Comments HEPATITIS C SCREENING Routine 12/25/2023 LIPID PANEL Routine 12/25/2023 from Last 3 Months or Most Recently Relevant to Health Maintenance Results * Hepatitis C Screening (12/25/2023) Hepatitis C Screening Abstracted us Historical Provider HEALTH MAINTENANCE Final Result * Lipid panel (12/25/2023) LDL/HDL Ratio 2 0 - 4 Triglycerides 38 0 - 150 mg/dL Cholesterol 158 0 - 200 mg/dL HDL 88 >=40 mg/dL LDL Cholesterol 63 0 - 100 mg/dL Blood Venous blood specimen / Unknown Historical Provider LAB BLOOD ORDERABLES Sandrine l Result from Last 3 Months or Most Recently Relevant to Health Maintenance Insurance [facility] [place] [id number] [facility] Member Subscriber Plan / Payer (Ef fective 2021-Present) Name:Kera Rosario Relation to Subscriber:Child Name:DOMINIQUE ROSARIO Date of :1960 Address: [address] [place] [address] [place] [address] Payer ID:[id number] Type:Not on file Address: [facility] [id number] [place] [address] Care Teams Orthotic Technician Relationship Specialty Start Date End Date Thea Alvarenga MD [address] [place] [address] PCP - General 09/21/23
== END 2025-01-20 15:21 | disposition home or self-care (01) ==
PROVIDERS: Visit Provider Obstetrics & Gynecology
DX: L68.0 Hirsutism (principal)
CPT/HCPCS: 99213

== ENCOUNTER 2025-02-13 12:55 | Outpatient (REF) | payer BC, SELFPAY ==
--- NOTE | ~2025-02-13 | US_ITS ---
CLINICAL HISTORY: L70.9 - Acne, unspecified US female pelvis LMP:5 days ago. Technique: Ultrasound examination of the pelvis was performed with transabdominal technique. Transvaginal images were attempted, however not completed. Comparison: None Findings: Anteverted uterus measuring 7.6 x 2.6 x 3.7cm without masses. Normal endometrial thickness of 0.7cm. The right ovary is normal in size, measuring 5.1 x 1.7 x 2.2cm, volume of 10.0mL. There is normal echogenicity and vascularity. No lesions. There are numerous small follicles. The left ovary is enlarged, measuring 5.1 x 3.6 x 4.5cm, volume of 43.3mL. There is normal echogenicity and vascularity. Simple cyst measuring 3.0 x 2.8 x 4.4 cm. There is a trace amount of fluid, which is likely physiologic. Impression: Enlarged left ovary secondary to a simple cyst measuring 4.4 cm. No follow up is required. Suspect polycystic ovarian morphology. This document has been electronically signed by: Stephanie Wong MD on 02/13/2025 13:59:46
--- OUTSIDE RECORDS SUMMARY | 2025-02-13 14:29 | XMS_ITS | Encounter Summary ---
Author Organization [facility] Address [address] [place] [address] Phone Care Team Providers Care Insole Reinforcer Name Role Phone Andria Parks MD Primary Care Provider Encounter Details Date Type Department Care Team (Late st Contact Info) Description 10/16/2016 Documentation [facility] [place] Family Medicine [address] [place], [place] [phone] Family Medicine, Physician [address] [place], [place] [address]401 Social History Tobacco Use Types Packs/Day Years [...] on filedocumented in this encounter Care Teams Insole Reinforcer Relationship Specialty Start Date End Date Andria Parks MD [address] [place] [address] [place] [address] PCP - General Pediatrics 07/27/23 09/15/23 documented as of this encounter
--- OUTSIDE RECORDS SUMMARY | 2025-02-13 14:29 | XMS_ITS | Encounter Summary ---
Author Organization [facility] Address [address] [place] [address] Phone Care Team Providers Care Staff Electronic Warfare Officer Name Role Phone Andria Parks MD Primary Care Provider Encounter Details Date Type Department Care Team (Late st Contact Info) Description 10/16/2016 Documentation [facility] [place] Family Medicine [address] [place], [place] [phone] Family Medicine, Physician [address] [place], [place] [address] Social History Tobacco Use Types Packs/Day Years [...] on filedocumented in this encounter Care Teams Staff Electronic Warfare Officer Relationship Specialty Start Date End Date Andria Parks MD [address] [place] [address] [place] [address] PCP - General Pediatrics 07/27/23 09/15/23 documented as of this encounter
--- OUTSIDE RECORDS SUMMARY | 2025-02-13 14:29 | XMS_ITS | Encounter Summary ---
Author Organization [facility] Address [address] [place] [address] Phone Care Team Providers Care Anthropology Faculty Member Name Role Phone Andria Parks MD Primary Care Provider [phone] Reason for Visit * Reason Comments Med Refill Encounter Details Date Type Department Care Team (Late st Contact Info) Description 10/24/2019 Refill [facility] [place] 150 [place] [address] Andria Parks MD 150 [place] [address] PCOS (polycystic ovarian syndrome) Social History Tobacco [...] ovaries documented in this encounter Care Teams Anthropology Faculty Member Relationship Specialty Start Date End Date Andria Parks MD [address] [place] [address] [place] [address] PCP - General Pediatrics 07/27/23 09/15/23 documented as of this encounter
--- OUTSIDE RECORDS SUMMARY | 2025-02-13 14:29 | XMS_ITS | Encounter Summary ---
Author Organization [facility] Address [address] [place] [address] Phone Care Team Providers Care Sales Appointment Coordinator Name Role Phone Andria Parks MD Primary Care Provider Encounter Details Date Type Department Care Team (Late st Contact Info) Description 04/18/2013 Documentation [facility] [place] Family Medicine [address] [place], [place] [phone] Family Medicine, Physician [address] [place], [place] 477871 Social History Tobacco Use Types Packs/Day Years [...] on filedocumented in this encounter Care Teams Sales Appointment Coordinator Relationship Specialty Start Date End Date Andria Parks MD [address] [place] [address] [place] [address] PCP - General Pediatrics 07/27/23 09/15/23 documented as of this encounter
--- OUTSIDE RECORDS SUMMARY | 2025-02-13 14:29 | XMS_ITS | Encounter Summary ---
Author Organization [facility] Address [address] [place] [address] Phone Care Team Providers Care Armor Reconnaissance Vehicle Driver Name Role Phone Andria Parks MD Primary Care Provider Encounter Details Date Type Department Care Team (Late st Contact Info) Description 07/02/2017 Conversion Encounter [facility] 150 [place] [address] Social History Tobacco Use Types Packs/Day Years [...] on filedocumented in this encounter Care Teams Armor Reconnaissance Vehicle Driver Relationship Specialty Start Date End Date Andria Parks MD 150 [place] [address] PCP - General Pediatrics 07/27/23 09/15/23 documented as of this encounter
--- OUTSIDE RECORDS SUMMARY | 2025-02-13 14:29 | XMS_ITS | Clinical Summary ---
Author Organization [address] [place] [address] [place] [phone] Phone Care Team Providers Care Box Gluer Name Role Phone Thea Alvarenga MD Primary Care Provider [phone] Allergies Active Allergy Reactions Criticality Noted Date [...] PM EST Office Visit Internal Medicine - [place] [address] [facility] [address] [place] [address] Thea Alvarenga MD Near syncope [...] AM EDT Office Visit Internal Medicine - [place] [address] [phone] Thea Alvarenga MD [address] [address] Health Maintenance Due Date Last Done Comments [...] Most Recently Relevant to Health Maintenance Insurance [facility] [place] [id number] [facility] Care Teams Box Gluer Relationship Specialty Start Date End Date Teha Alvarenga MD [address] [place] [address] PCP - General 09/21/23
--- OUTSIDE RECORDS SUMMARY | 2025-02-13 14:29 | XMS_ITS | Encounter Summary ---
Author Organization [facility] Address [address] [place] [address] Phone Care Team Providers Care Snow Ranger Name Role Phone Andria Parks MD Primary Care Provider Encounter Details Date Type Department Care Team (Late st Contact Info) Description 01/07/2017 Documentation [facility] [place] Family Medicine [address] [place], [place] [phone] Family Medicine, Physician [address] [place], [place] [address] Social History Tobacco Use Types Packs/Day Years [...] on filedocumented in this encounter Care Teams Snow Ranger Relationship Specialty Start Date End Date Andria Parks MD [address] [place] [address] [place] [address] PCP - General Pediatrics 07/27/23 09/15/23 documented as of this encounter
--- OUTSIDE RECORDS SUMMARY | 2025-02-13 14:29 | XMS_ITS | Encounter Summary ---
Author Organization [facility] Address [address] [place] [address] Phone Care Team Providers Care Special Education Assistant Name Role Phone Andria Parks MD Primary Care Provider [phone] Encounter Details Date Type Department Care Team (Late st Contact Info) Description 10/16/2016 Documentation [facility] [place] [address] [place], [place] [phone] Family Medicine, Physician [address] [place], [place] [address] Social History Tobacco Use Types Packs/Day Years [...] on filedocumented in this encounter Care Teams Special Education Assistant Relationship Specialty Start Date End Date Andria Parks MD [address] [place] [address] [place] [address] PCP - General Pediatrics 07/27/23 09/15/23 documented as of this encounter
--- OUTSIDE RECORDS SUMMARY | 2025-02-13 14:29 | XMS_ITS | Encounter Summary ---
Author Organization [facility] Address [address] [place] [address] Phone Care Team Providers Care Hunter Skin Diver Name Role Phone Andria Parks MD Primary Care Provider [phone] Reason for Visit * Reason Comments Med Refill Encounter Details Date Type Department Care Team (Late st Contact Info) Description 06/05/2022 Refill [facility] [address] [place] [address] Andria Parks MD 150 [place] [address] PCOS (polycystic ovarian syndrome) Social History Tobacco [...] requesting BC refill. Pt transferred to front maker to book PE. * Telephone Encounter - Cheri Xiao LPN - 06/05/2022 8:50 AM EDT TEEN RELEASE Faxed refill request / last PE 05/20/21 no pending appts Call to pt [phone] not receiving incoming calls / call to [phone] message left to call theoffice documented in this encounter Plan of Treatment Not on file documented as of this encounter Visit Diagnoses Diagnosis PCOS (polycystic ovarian syndrome) Polycystic ovaries documented in this encounter Care Teams Hunter Skin Diver Relationship Specialty Start Date End Date Andria Parks MD 150 [facility] [place] [address] PCP - General Pediatrics 07/27/23 09/15/23 documented as of this encounter
--- OUTSIDE RECORDS SUMMARY | 2025-02-13 14:29 | XMS_ITS | Encounter Summary ---
Author Organization [facility] Address [address] [place] [address] Phone Care Team Providers Care Director Of Quality Name Role Phone Andria Parks MD Primary Care Provider Encounter Details Date Type Department Care Team (Late st Contact Info) Description 10/16/2016 Documentation [facility] [place] [address] [place], [place] [phone] Family Medicine, Physician [address] [place], [place] [address] Social History Tobacco Use Types Packs/Day Years [...] on filedocumented in this encounter Care Teams Director Of Quality Relationship Specialty Start Date End Date Andria Parks MD [address] [place] [address] [place] [address] PCP - General Pediatrics 07/27/23 09/15/23 documented as of this encounter
--- OUTSIDE RECORDS SUMMARY | 2025-02-13 14:30 | XMS_ITS | Clinical Summary ---
Author Organization [facility] Address [address] [place] [address] Phone Care Team Providers Care Small Animal Caretaker Name Role Phone Unavailable Primary Care Provider [...] 1 07/28/20 23 Active norgestimate-ethiny l estradiol (Mqp-Yt-Joasmr) 0.18/0.215/0.25 MG-25 MCG per tabletIndications:P COS (polycystic [...] does not remember her name (was in [place]) Seasonal allergic rhinitis 05/16/2020 Overview (05/16/2020): On [...] Followed by replacement of Dr. Howell in [place]; pt reports using all Cerave products and recently added OTC Adalapine 0.1% to face Encounters Date Type Department Care Team Description 12/19/2024 Telephone [facility] [place] [phone] Shanice Soler MD Immunizations from Last 3 [...] of Migraines, No family history of Sudden /DC under age 55, No family history of [...] Completed 07/28/2023, 05/16/2020 Procedures * Due to [facility] law, this organization might not be sharing sensitive test results. Procedure Name Priority Date/Time Associated Diagnosis Comments CHLAMYDIA AND GONORRHEA, AMPLIFIED Routine 07/28/2023 4:12 PM EDT Screening examination for bacterial and spirochetal disease from Last 3 Months or Most Recently Relevant to Health Maintenance Results * Due to [place] [employer] law, this organization might not be sharing sensitive test results. * Chlamydia and Gonorrhea, Amplified (07/28/2023 4:12 PM EDT) Chlamydia Trachomatis, DNA Probe NEGATIVE (NEG) [facility] Comment: No Chlamydia Trachomatis RNA detected in this patient's sample ? (REFERENCE RANGE/NORMAL VALUE: NOT DETECTED) ? Note: This test uses operator cavity pump- mediated amplification method to detect rRNA from C. Trachomatis URINE GC AMP PROBE NEGATIVE (NEG) [facility] Comment: No Neisseria Gonorrhoeae RNA detected in this patient's sample ? (REFERENCE RANGE/NORMAL VALUE: NOT DETECTED) ? NOTE: This test uses operator cavity pump-mediated amplification method to detect rRNA from N.Gonorrhoeae. [...] without risk of sexual abuse. Consult the [facility] if needed. Contact phone number . Therapeutic failure or success cannot be determined with the Aptima Combo2 assay since nucleic acid may persist following appropriate antimicrobial therapy. The Centers for Disease Control and Prevention (CDC) recommends confirmatory retesting using culture or a different nucleic acid amplification test when positive results occur, if indicated. Testing performed or reported by [facility], a Service of [facility], [address], [place] [address] Rogers Reyes MD, Car Rental Clerk [facility]# [id number] Urine (Urine) 07/28/2023 4:1 2 PM EDT 07/29/2023 12:10 AM EDT Andria Parks MD LAB MICROBIOLOGY - GENERAL ORDERABLES Final Result [facility] from Last 3 Months or Most Recently Relevant to [place] [address] [facility] [place] [address] [facility] HMO Member Subscriber Plan / Payer (Ef fective 2014-Present) Name:Kera Rosario Relation to Subscriber:Child Name:FITO ROSARIO Date of :1961 Address: [address] [place] [address] [place] [address] Payer ID:Not on file Type:HMO Address: [address] [place] [id number]
--- OUTSIDE RECORDS SUMMARY | 2025-02-13 14:30 | XMS_ITS | Encounter Summary ---
Author Organization [facility] Address [address] [place] [address] Phone Care Team Providers Care Flow Match Sofa Cutter Name Role Phone Andria Parks MD Primary Care Provider [phone] Reason for Visit * Reason Comments Med Refill Encounter Details Date Type Department Care Team (Late st Contact Info) Description 02/13/2020 Refill [facility] [place] [address] [place] [address] Andria Parks MD 150 [place] [address] PCOS (polycystic ovarian syndrome) Social History Tobacco [...] ovaries documented in this encounter Care Teams Flow Match Sofa Cutter Relationship Specialty Start Date End Date Andria Parks MD [address] [place] [address] [place] [address] PCP - General Pediatrics 07/27/23 09/15/23 documented as of this encounter
== END 2025-02-13 12:56 | disposition home or self-care (01) ==
LOC: HO.US 12:55
PROVIDERS: Visit Provider Obstetrics & Gynecology
DX: L70.9 Acne, unspecified (principal); L68.0 Hirsutism
CPT/HCPCS: 76856

== ENCOUNTER 2025-03-29 13:02 | Outpatient (AMB) | payer BC, SELFPAY ==
[2025-03-29 13:04] VITALS: BP 100/68; BMI 31.7
--- NOTE | 2025-03-29 13:04 | MHC.OFFVIS ---
Vital Signs 03/29/25 13:04 Height 5 ft 1 in Weight 168 lb BMI 31.7 BP 100/68 Intake Visit Reasons: Ultrasound Follow up Set Builder Required: No Information Interpreted: non-clinical & clinical Accompanied by: Self / Same As Patient Allergies chickpea Allergy (Mild, Verified 03/29/25 13:10) Difficulty Breathing kiwi Allergy (Mild, Verified 03/29/25 13:10) Swelling HPI Comments Details: Presenting for follow-up. The following workup was done: TSH, prolactin, hCG within normal Total testosterone 84 ng/dL , free testosterone within normal 17 hydroxyprogesterone normal Pelvic ultrasound showed the following: Impression: Enlarged left ovary secondary to a simple cyst measuring 4.4 cm. No follow up is required. Suspect polycystic ovarian morphology Last Pap smear in 04/08 was negative [facility] Medical History (Updated 03/29/25 @ 13:13 by Rony Pedroza MD) PCOS (polycystic ovarian syndrome) Eczema Asthma Social History Alcohol intake: current Alcohol intake frequency: a few times a month Female Reproductive History Menstrual Age of Menarche: 18 Review of Systems Const All systems reviewed & are unremarkable except as noted in HPI and below Reports as per HPI and Reports no additional complaints GI Reports no additional complaints Reports no additional complaints Physical Exam Vital Signs: Last Vital Signs BP 100/68 03/29/25 13:04 BMI result Body Mass Index 31.7 Assessment & Plan Assessment & Plan (1) PCOS (polycystic ovarian syndrome): Code(s): E28.2 - Polycystic ovarian syndrome Category: Medical Plan: Discussed with the patient the results of her blood work included normal TSH, prolactin, mildly elevated total testosterone, normal free testosterone and 17 hydroxyprogesterone . Explained to the patient that she has a diagnosis of PCOS. D/w the patient the association of PCOS with an increase in the risk of diabetes or pre diabetes, heart disease, hypercholesterolemia and metabolic syndrome, endometrial hyperplasia and/or cancer if untreated and an increase in the risk of breast cancer. Recommended for the patient the following: -To call her pcp to screen for cardiovascular risk and diabetes with FBS and 2 hr GTT after 75 g OGTT, in addition to cholesterol, lipids, HDL and LDL. -Instructions given to patient to increase exercise combined with dietary changes reduce the risk of diabetes, explained to the patient that reduction in body weight has been associated with improved rate and decreased hirsutism as well as improvement in glucose tolerance and lipid levels -For her Menstrual cycle control: Discussed with the patient the following options of treatment : Combination low-dose hormonal contraceptives are recommended to stay on her current control pills as the primary treatment for menstrual disorder -Treatment of Hirsutism include but not limited to: Anti-androgen should only be used with control pills be the risk of teratogenicity, spironolactone for at least 6 months, is a risk of ambiguous genitalia in male infant and can exacerbate hyperkalemia Flutamide, an androgen receptor agonist a 5-250 mg per day with risk of teratogenicity therefore should only be used control pills, it with lifestyle changes and metformin therapy has additiotive effect Finasteride with the risk of hepatic and renal toxicity, documented risk of teratogenicity in mid fetus is should only be used with adequate contraception Eflornithine, topical has been FDA Will refer to product endocrinology for further management Instructed the patient to call our office back in case a referral appointment is not scheduled, missed or canceled so that we will assist on rescheduling another appointment, the patient verbalized understanding agreed with the plan. Orders: Referrals Reproductive Endocrinology E28.2 - Polycystic ovarian syndrome, L68.0 - Hirsutism Coding Level of Care Code Est Pt Level 3 (89978) Diagnoses PCOS (polycystic ovarian syndrome) E28.2
--- OUTSIDE RECORDS SUMMARY | 2025-03-29 13:19 | XMS_ITS | Encounter Summary ---
Author Organization [facility] Address [address] [place] [address] Phone Care Team Providers Care Delivery Route Driver Name Role Phone Andria Parks MD Primary Care Provider [phone] Reason for Visit * Reason Comments Med Refill Encounter Details Date Type Department Care Team (Late st Contact Info) Description 02/13/2020 Refill [facility] 150 [place] [address] Andria Parks MD 150 [place] [address] PCOS (polycystic ovarian syndrome) Social History Tobacco [...] ovaries documented in this encounter Care Teams Delivery Route Driver Relationship Specialty Start Date End Date Andria Parks MD [address] [place] [address] [place] [address] PCP - General Pediatrics 07/27/23 09/15/23 documented as of this encounter
--- OUTSIDE RECORDS SUMMARY | 2025-03-29 13:19 | XMS_ITS | Encounter Summary ---
Author Organization [facility] Address [address] [place] [address] Phone Care Team Providers Care Resource Engineer Name Role Phone Andria Parks MD Primary Care Provider Encounter Details Date Type Department Care Team (Late st Contact Info) Description 10/16/2016 Documentation [facility] [place] Family Medicine [address] [place], [place] [phone] Family Medicine, Physician [address] [place], [place] [address] Social History Tobacco Use Types Packs/Day Years [...] on filedocumented in this encounter Care Teams Resource Engineer Relationship Specialty Start Date End Date Andria Parks MD [address] [place] [address] [place] [address] PCP - General Pediatrics 07/27/23 09/15/23 documented as of this encounter
--- OUTSIDE RECORDS SUMMARY | 2025-03-29 13:19 | XMS_ITS | Encounter Summary ---
Author Organization [facility] Address [address] [place] [address] Phone Care Team Providers Care Welt Rougher Name Role Phone Andria Parks MD Primary Care Provider [phone] Reason for Visit * Reason Comments Med Refill Encounter Details Date Type Department Care Team (Late st Contact Info) Description 06/05/2022 Refill [facility] 150 [place] [address] Andria Parks MD 150 [place] [address] PCOS (polycystic ovarian syndrome) Social History Tobacco [...] BC refill. Pt transferred to front end technician to book PE. * Telephone Encounter - Cheri Xiao LPN - 06/05/2022 8:50 AM EDT TEEN RELEASE Faxed refill request / last PE 05/20/21 no pending appts Call to pt [phone] not receiving incoming calls / call to [phone] message left to call theoffice documented in this encounter Plan of Treatment Not on file documented as of this encounter Visit Diagnoses Diagnosis PCOS (polycystic ovarian syndrome) Polycystic ovaries documented in this encounter Care Teams Welt Rougher Relationship Specialty Start Date End Date Andria Parks MD 150 [facility] [place] [address] PCP - General Pediatrics 07/27/23 09/15/23 documented as of this encounter
--- OUTSIDE RECORDS SUMMARY | 2025-03-29 13:19 | XMS_ITS | Clinical Summary ---
Author Organization [address] [place] [address] [place] [phone] Phone Care Team Providers Care Promotion Writer Name Role Phone Thea Alvarenga MD Primary Care Provider [phone] Allergies Active Allergy Reactions Criticality Noted Date [...] 01/14/2024 Eczema 01/14/2024 Obesity (BMI 30-39.9) 12/25/2023 Immunizations Name Administration Dates Next Due Tdap Tetanus diptheria acell ular pertussis (Boostrix; Adacel) 7yo and older 12/23/2023 Surgical History Surgery Date Site/Laterality Comments OTHER SURGICAL HISTORY 2018 Bilateral PROCEDURE: EXTRACTION ERUPTED TOOTH/EXR Medical History [...] Upcoming Encounters Date Type Department Care Team ([facility] st Contact Info) Description 07/06/2025 11:30 AM EDT Office Visit Internal Medicine - [address] [phone] Thea Alvarenga MD [address] [place] [address] Health Maintenance Due Date Last Done Comments Gonorrhea/Chlamydia Screening 2001 Pneumococcal Vaccine: Pediatrics (0 to 5 Years) and At-Risk Patients (6 to 64 Years) (1 of 1 - PPSV23) 2007 06/05/2003, 06/20/2002, 04/15/2002, Additional history exists Cervical Cancer Screening: Pap Smear 2022 Depression Screening 06/09/2024 HIV Screening 06/09/2024 Social Influencers of Health Screening 06/09/2024 COVID-19 Vaccine ( season) 2024 Influenza Vaccine (Season Ended) 2025 Cholesterol Screening (Lipid Panel) 12/25/2028 12/25/2023 DTaP,Tdap,and Td Vaccines (9 - Td or Tdap) 12/23/2033 12/23/2023, 07/28/2023, 03/15/2013, Additional history exists Hepatitis B Vaccines Completed 09/02/2002, 2001, 2001 HIB Vaccines Completed 02/28/2003, 080 03/2002, 04/15/2002, Additional history exists IPV Vaccines Completed 12/05/2005, 08/16, 04/15/2002, Additional history exists MMR Vaccines Completed 12/05/2005, 11/28/2002 Varicella Vaccines Completed 04/03/2014, 11/28/2002 Hepatitis A Vaccines Completed 10/19/2014, 04/03/20 14 HPV Vaccines Completed 08/29/2016, 04/16, 04/10/2015 Meningococcal ACWY Vaccine Completed 05/03/2019, Meningococcal B Vaccine Completed 07/28/2023, 05/16 Hepatitis C Screening Completed 12/25/2023 RSV Immunization [...] mg/dL Blood Venous blood specimen / Unknown us Historical Provider LAB BLOOD ORDERABLES Sandrine l Result from Last 3 Months or Most Recently Relevant to Health Maintenance Insurance [facility] Care Teams Promotion Writer Relationship Specialty Start Date End Date Thea Alvarenga MD [address] [place] [address] PCP - General 09/21/23
--- OUTSIDE RECORDS SUMMARY | 2025-03-29 13:19 | XMS_ITS | Encounter Summary ---
Author Organization [facility] Address [address] [place] [address] Phone Care Team Providers Care Diabetes Specialist Name Role Phone Andria Parks MD Primary Care Provider Encounter Details Date Type Department Care Team (Late st Contact Info) Description 07/02/2017 Conversion Encounter [facility] 150 [place] [address] Social History Tobacco Use Types Packs/Day Years [...] on filedocumented in this encounter Care Teams Diabetes Specialist Relationship Specialty Start Date End Date Andria Parks MD 150 [place] [address] PCP - General Pediatrics 07/27/23 09/15/23 documented as of this encounter
--- OUTSIDE RECORDS SUMMARY | 2025-03-29 13:19 | XMS_ITS | Encounter Summary ---
Author Organization [facility] Address [address] [place] [address] Phone Care Team Providers Care Geometrician Name Role Phone Andria Parks MD Primary Care Provider Encounter Details Date Type Department Care Team (Late st Contact Info) Description 10/16/2016 Documentation [facility] [place] [address] [place], [place] [phone] Family Medicine, Physician [address] [place], [place] [phone] Social History Tobacco Use Types Packs/Day Years [...] on filedocumented in this encounter Care Teams Geometrician Relationship Specialty Start Date End Date Andria Parks MD [address] [place] [address] [place] [address] PCP - General Pediatrics 07/27/23 09/15/23 documented as of this encounter
--- OUTSIDE RECORDS SUMMARY | 2025-03-29 13:19 | XMS_ITS | Encounter Summary ---
Author Organization [facility] Address [address] [place] [address] Phone Care Team Providers Care Gasoline Tractor Operator Name Role Phone Andria Parks MD Primary Care Provider Reason for Visit * Reason Comments Med Refill Encounter Details Date Type Department Care Team (Late st Contact Info) Description 10/24/2019 Refill [facility] 150 [place] [address] Andria Parks MD 150 [place] [address] PCOS (polycystic ovarian syndrome) Social History Tobacco [...] ovaries documented in this encounter Care Teams Gasoline Tractor Operator Relationship Specialty Start Date End Date Andria Parks MD [address] [place] [address] [place] [address] PCP - General Pediatrics 07/27/23 09/15/23 documented as of this encounter
--- OUTSIDE RECORDS SUMMARY | 2025-03-29 13:19 | XMS_ITS | Clinical Summary ---
Author Organization [facility] Address [address] [place] [phone] Phone Care Team Providers Care Substation Electrician Name Role Phone Unavailable Primary Care Provider [...] 1 07/28/20 23 Active norgestimate-ethiny l estradiol (Dow-Ni-Fmgkyw) 0.18/0.215/0.25 MG-25 MCG per tabletIndications:P COS (polycystic [...] does not remember her name (was in [place]) Seasonal allergic rhinitis 05/16/2020 Overview (05/16/2020): On [...] Followed by replacement of Dr. Howell in [place]; pt reports using all Cerave products and recently added OTC Adalapine 0.1% to face Immunizations Immunization Administration Dates Next Due DTaP [...] of Migraines, No family history of Sudden /MT under age 55, No family history of [...] Completed 07/28/2023, 05/16/2020 Procedures * Due to [place] PlayWith law, this organization might not be sharing sensitive test results. Procedure Name Priority Date/Time Associated Diagnosis Comments CHLAMYDIA AND GONORRHEA, AMPLIFIED Routine 07/28/2023 4:12 PM EDT Screening examination for bacterial and spirochetal disease from Last 3 Months or Most Recently Relevant to Health Maintenance Results * Due to [place] PlayWith law, this organization might not be sharing sensitive test results. * Chlamydia and Gonorrhea, Amplified (07/28/2023 4:12 PM EDT) Chlamydia Trachomatis, DNA Probe NEGATIVE (NEG) [facility] Comment: No Chlamydia Trachomatis RNA detected in this patient's sample ? (REFERENCE RANGE/NORMAL VALUE: NOT DETECTED) ? Note: This test uses casino floor person- mediated amplification method to detect rRNA from C. Trachomatis URINE GC AMP PROBE NEGATIVE (NEG) [facility] Comment: No Neisseria Gonorrhoeae RNA detected in this patient's sample ? (REFERENCE RANGE/NORMAL VALUE: NOT DETECTED) ? NOTE: This test uses casino floor person-mediated amplification method to detect rRNA from N.Gonorrhoeae. [...] risk of sexual abuse. Consult the [facility] if needed. Contact phone number . Therapeutic failure or success cannot be determined with the Aptima Combo2 assay since nucleic acid may persist following appropriate antimicrobial therapy. The Centers for Disease Control and Prevention (CDC) recommends confirmatory retesting using culture or a different nucleic acid amplification test when positive results occur, if indicated. Testing performed or reported by [facility], a Service of [facility], [address] [place] [address] Rogers Reyes MD, Screening Unit Registered Nurse [facility]# [id number] Urine (Urine) 07/28/2023 4:1 2 PM EDT 07/29/2023 12:10 AM EDT us Andria Parks MD LAB MICROBIOLOGY - GENERAL ORDERABLES Final Result [facility] from Last 3 Months or Most Recently Relevant to Health Maintenance Insurance [facility] [place] [address] [facility]
--- OUTSIDE RECORDS SUMMARY | 2025-03-29 13:19 | XMS_ITS | Encounter Summary ---
Author Organization [facility] Address [address] [place] [address] Phone Care Team Providers Care Dock Attendant Name Role Phone Andria Parks MD Primary Care Provider [phone] Encounter Details Date Type Department Care Team (Late st Contact Info) Description 10/16/2016 Documentation [facility] [address] [place], [place] [phone] Family Medicine, Physician [address] [place], [place] [address] Social History Tobacco Use Types Packs/Day Years [...] on filedocumented in this encounter Care Teams Dock Attendant Relationship Specialty Start Date End Date Andria Parks MD [address] [place] [address] [place] [address] PCP - General Pediatrics 07/27/23 09/15/23 documented as of this encounter
--- OUTSIDE RECORDS SUMMARY | 2025-03-29 13:19 | XMS_ITS | Encounter Summary ---
Author Organization [facility] Address [address] [place] [address] Phone Care Team Providers Care Heel Attacher Wood Name Role Phone Andria Parks MD Primary Care Provider Encounter Details Date Type Department Care Team (Late st Contact Info) Description 01/07/2017 Documentation [facility] [place] [facility] [address] [place], [place] [phone] Family Medicine, Physician [address] [place], [place] [address] Social History Tobacco Use Types Packs/Day Years [...] on filedocumented in this encounter Care Teams Heel Attacher Wood Relationship Specialty Start Date End Date Andria Parks MD [address] [place] [address] [place] [address] PCP - General Pediatrics 07/27/23 09/15/23 documented as of this encounter
--- OUTSIDE RECORDS SUMMARY | 2025-03-29 13:19 | XMS_ITS | Encounter Summary ---
Author Organization [facility] Address [address] [place] [address] Phone Care Team Providers Care Box Nailer Name Role Phone Andria Parks MD Primary Care Provider [phone] Encounter Details Date Type Department Care Team (Late st Contact Info) Description 04/18/2013 Documentation [facility] [place] [address] [place], [place] [phone] Family Medicine, Physician [address] [place], [place] [phone] Social History Tobacco Use Types Packs/Day Years [...] on filedocumented in this encounter Care Teams Box Nailer Relationship Specialty Start Date End Date Andria Parks MD [address] [place] [address] [place] [address] PCP - General Pediatrics 07/27/23 09/15/23 documented as of this encounter
--- OUTSIDE RECORDS SUMMARY | 2025-03-29 13:19 | XMS_ITS | Encounter Summary ---
Author Organization [facility] Address [address] [place] [address] Phone Care Team Providers Care Center Manager Name Role Phone Andria Parks MD Primary Care Provider Encounter Details Date Type Department Care Team (Late st Contact Info) Description 10/16/2016 Documentation [facility] [place] [address] [place], [place] [phone] Family Medicine, Physician [address] [place], [place] [address] Social History Tobacco Use Types Packs/Day Years [...] on filedocumented in this encounter Care Teams Center Manager Relationship Specialty Start Date End Date Andria Parks MD [address] [place] [address] [place] [address] PCP - General Pediatrics 07/27/23 09/15/23 documented as of this encounter
== END 2025-03-29 13:37 | disposition home or self-care (01) ==
LOC: HO.HWS 13:03
PROVIDERS: Visit Provider Obstetrics & Gynecology
DX: E28.2 Polycystic ovarian syndrome (principal)
CPT/HCPCS: 99213

== ENCOUNTER 2025-05-04 07:56 | Outpatient (AMB) | payer BC, SELFPAY ==
[2025-05-04 07:59] VITALS: BP 108/68; PULSE 90; RESP 16; TEMP 36.3; O2SAT 97; BMI 32.1
--- NOTE | 2025-05-04 07:59 | A.OFFPC_ITS ---
Vital Signs 05/04/25 07:59 Height 5 ft 1 in Weight 170 lb BMI 32.1 BP 108/68 Blood Pressure Location Lt brachial Position Sitting Respiration 16 Pulse 90 Pulse Source Pulse Oximeter Temp 97.3 F Temp Source Temporal Artery Scan Pulse Oximetry (%) 97 Oxygen Delivery Method Room Air Intake Visit Reasons: establish care Intake Note: Patient is a new patient here to establish care. Transferring care from [facility] in [place], [place]. Medical records have not been requested and have not been received. Patient completed Authorization to Release Medical Information form today; Patient is requesting records from her previous pediatric primary care physician, as she was only seen once at [facility] and does not believe they received her records. Accompanied by: Self / Same As Patient Is last menstrual period known: Yes (Lasting weeks) Last menstrual period: 04/20/25 Allergies chickpea Allergy (Mild, Verified 05/04/25 08:23) Difficulty Breathing kiwi Allergy (Mild, Verified 05/04/25 08:23) Swelling Medication List - Last Reconciled 05/04/25 by Milly Brown PA-C albuterol sulfate 90 mcg/actuation inhalation norgestimate-ethinyl estradiol 0.18/0.215/0.25 mg-0.025 mg (Uuw-Rb-Odjjxu) 1 tab PO DAILY Tobacco use date assessed: 05/04/25 Dental Screening Dental Screen Date: 05/04/25 Did you have a dental visit in the last 12 months?: Yes Did you have a dental problem in the last 6 months where you did not have access to dental care?: No Was dental information given to patient?: Patient has dentist HPI establish care HPI Details 24-year-old female coming to the office with the 1st time. Patient follows with our [facility] gynecology last seen 03/2025 for PCOS recommending oral glucose tolerance test, cholesterol panel and additional blood work and referral was placed to reproductive endocrinology. Presenting for management of Polycystic Ovary Syndrome (PCOS) and evaluation of syncope episodes. PCOS was initially suspected when the patient was 17 years old due to elevated testosterone levels and was managed with control without a formal diagnosis at that time. Recently, the patient experienced irregular bleeding despite adherence to control, prompting further investigation and confirmation of PCOS through ultrasound and blood work. The patient reports episodes of pre-syncope associated with exercise, characterized by vision changes, dyspnea, and near loss of consciousness, leading to an emergency department visit where initial workup including EKG was normal. The patient was advised to avoid strenuous exercise until further evaluation by cardiology is completed. [facility] Medical History PCOS (polycystic ovarian syndrome) Eczema Asthma Surgical History No pertinent past surgical history Family History Mother No pertinent past medical history Father No pertinent past medical history Social History Household Members: Family Household Members Other:: Mother Housing: House Alcohol intake: current Alcohol intake frequency: a few times a month Patient Tobacco Use Status: Never used Tobacco e-Cigarette/Vaping Use: Currently Using service: No Current occupational status: employed and student Current occupation: [employer]; [employer]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 Cognitive needs: No Hearing needs: No Vision needs: No Female Reproductive History Menstrual Age of Menarche: 18 Date of last menstrual period: 04/20/25 control method: pills Total pregnancies: 0 History of abnormal pap smear: No Questionnaire PHQ-9 Over the last 2 weeks, how often have you been bothered by any of the following problems? 1. Little interest or pleasure in doing things: not at all 2. Feeling down, depressed, or hopeless: not at all 3. Trouble falling or staying asleep, or sleeping too much: several days 4. Feeling tired or having little energy: several days 5. Poor appetite or overeating: not at all 6. Feeling bad about yourself - or that you are a failure or have let yourself or your family down: not at all 7. Trouble concentrating on things, such as reading the newspaper or watching television: not at all 8. Moving or speaking so slowly that other people could have noticed. Or the opposite - being so fidgety or restless that you have been moving around a lot more than usual: not at all 9. Thoughts that you would be better off or of hurting yourself in some way: not at all Total score: 2 Depression Screening Interpretation: Negative Depression Screening Done: Yes 32331 - PHQ-9 Billing: Yes Source: Developed by Drs. Elliot Womack, Klarissa Weiner, Ned Quiroga and colleagues, with an educational yamel from [employer]. Thrive Questionnaire Date Thrive assessed: 05/04/25 I am a: Patient What is your living situation today?: I have a steady place to live Within the past 12 months, did the food you bought not last and you didn't have the money to get more?: Never true Within the past 12 months, did you worry whether your food would run out before you got money to buy more?: Never true Do you have trouble paying for medicines?: No Do you have trouble getting transportation to medical appointments?: No Do you have trouble paying your heating and electricity bill?: No Do you have trouble taking care of your child, family member or friend?: No Do you have trouble with day-to-day activities such as bathing, preparing meals, shopping, managing finances, etc.?: No Are you currently unemployed and looking for a job?: No Are you interested in more education?: No Please select the resources that you would like help with: None Currently or been in a relationship where the following occur: No concerns reported THRIVE Score: 0 AUDIT C Alcohol Use Questionnaire (AUDIT-C) 1. How often do you have a drink containing alcohol?: 2-3 times a week 2. How many drinks containing alcohol do you have on a typical day when you are drinking?: 1 or 2 3. How often do you have six or more drinks on one occasion?: Never Total Score: 3 Score Reviewed/Action Taken: No ZACK-7 AMB Questionnaire ZACK-7 Date ZACK - 7 assessed: 05/04/25 Feeling nervous, anxious, or on edge: 1 = Several days Not being able to stop or control worryin = Not at all Worrying too much about different things: 0 = Not at all Trouble relaxin = Several days Being so restless that it is hard to sit still: 0 = Not at all Becoming easily annoyed or irritable: 0 = Not at all Feeling afraid as if something awful might happen: 1 = Several days Total ZACK-7 score (0-4 normal; 5-9 mild; 10-14 moderate; 15-21 severe): 3 Source: Developed by Drs. Elliot Womack, Klarissa Weiner, Ned Quiroga and colleagues, with an educational yamel from [employer]. ZACK-7 Assessment Billing ZACK-7 Assessment Tool: ZACK-7 Assessment 30953 Review of Systems Const Denies body aches, Denies chills, Denies fever(s), Denies headache(s) and Denies poor appetite Eyes Reports no additional complaints ENT Denies dysphagia, Denies dizziness, Denies headache(s) and Denies odynophagia Card Denies chest pain, Denies syncope, Denies edema, Denies irregular heart rhythm, Denies lightheadedness and Denies dyspnea Resp Denies cough and Denies dyspnea GI Denies abdominal pain, Denies constipation, Denies dysphagia, Denies diarrhea, Denies nausea, Denies odynophagia and Denies vomiting Reports no additional complaints Musc Reports no additional complaints and Denies abnormal gait Skin/Breast Reports system reviewed and no additional complaints, except as documented Neuro Denies abnormal gait, Denies dizziness, Denies syncope and Denies headache(s) Psych Reports no additional complaints Physical exam (Primary Care) Vital Signs: Last Vital Signs Temp 97.3 F 05/04/25 07:59 Pulse 90 05/04/25 07:59 Resp 16 05/04/25 07:59 BP 108/68 05/04/25 07:59 Pulse Ox 97 05/04/25 07:59 Oxygen Delivery Method Room Air 05/04/25 07:59 BMI result Body Mass Index 32.1 Tobacco/Smoking Status: Tobacco use Status Tobacco use date assessed 05/04/25 05/04/25 08:15 Patient Tobacco Use Status Never used Tobacco 05/04/25 08:15 e-Cigarette/Vaping Use Currently Using 05/04/25 08:15 PHQ-9: PHQ-9 Score PHQ-9: Total score 2 05/04/25 08:17 Depression Screening Interpretation: Negative Thrive Assessment: Date of Thrive Assessment Date Thrive assessed 05/04/25 05/04/25 08:15 Currently or been in a relationship where the following occur: No concerns reported Const General: cooperative, healthy appearing, comfortable and no acute distress Orientation/consciousness: patient oriented x3 HENMT Head: Yes normocephalic Ears: hearing grossly normal bilaterally General nose exam: Normal external nose present Eyes General: appearance normal, both eyes and all related structures Conjunctivae: conjunctivae normal Neck Neck: Yes full ROM and Yes no lymphadenopathy Resp Effort & Inspection: normal respiratory effort Auscultation: clear to auscultation bilaterally, no crackles, no rales, no rh onchi and no wheezes Cardio Rate: regular rate Rhythm: regular rhythm Skin General skin exam: no rashes or lesions noted Neuro General: patient oriented x3 Gait exam (Neuro): Normal gait present Extrem General: Yes normal to inspection, Yes full ROM and No edema Psych Affect: normal affect Attitude: cooperative Insight: Good insight present (Psych) Judgement: Good judgement present (Psych) Coding Level of Care Code New Pt Level 4 (95721) Diagnoses PCOS (polycystic ovarian syndrome) E28.2 Mild intermittent asthma without complication J45.20 Asthma severity: mild Asthma persistence: intermittent Asthma complication type: uncomplicated Near syncope R55 Eczema, unspecified type L30.9 Eczema type: unspecified Hirsutism L68.0 Obesity (BMI 30-39.9) E66.9 Elevated LFTs R79.89 Additional Codes ZACK-7 Assessment Billing - ZACK-7 Assessment Tool: ZACK-7 Assessment 54778 ([id number]) PHQ-9 - 53997 - PHQ-9 Billing: Yes ([id number]) Assessment & Plan Assessment & Plan (1) PCOS (polycystic ovarian syndrome): Code(s): E28.2 - Polycystic ovarian syndrome Category: Medical Plan: I discussed with the [facility] [place] who states they will take this patient for PCOS. Referral was placed today. Also ordered blood work to screen for hypercholesterolemia and diabetes mellitus today. (2) Asthma: Code(s): J45.909 - Unspecified asthma, uncomplicated Category: Medical Qualifiers: Asthma severity: mild Asthma persistence: intermittent Asthma complication type: uncomplicated Qualified Code(s): J45.20 - Mild intermittent asthma, uncomplicated Plan: Asthma currently controlled on present medications. Continue on albuterol as needed.? Avoid triggers such as allergies. (3) Near syncope: Code(s): R55 - Syncope and collapse Category: Medical Plan: Patient having several near syncope episodes which initially began with outdoor running exclusively but more recently has had episodes while running endorse. She was seen in the ED 10/2024 workup was negative and she was advised to have a Cardiology consult and avoid strenuous exercise until evaluation could be completed. Referral was placed to cardiology at today's visit and recommended avoidance of strenuous exercise. (4) Eczema: Code(s): L30.9 - Dermatitis, unspecified Category: Medical Qualifiers: Eczema type: unspecified Qualified Code(s): L30.9 - Dermatitis, unspecified Plan: Use of topical emollients as needed. (5) Hirsutism: Code(s): L68.0 - Hirsutism Category: Medical Plan: Plan to follow up with endocrinology for hirsutism and PCOS. Referral was also placed to dermatology at patient request (6) Obesity (BMI 30-39.9): Code(s): E66.9 - Obesity, unspecified Category: Medical Plan: Healthy diet and regular exercise is encouraged. Patient does not engage in strenuous exercise due to near syncope episodes. (7) Elevated LFTs: Code(s): R79.89 - Other specified abnormal findings of blood chemistry Category: Medical Plan: Plan to order for additional blood work as last LFTs were elevated. Plan The patient will undergo further blood work to monitor metabolic risks associated with PCOS, including a cholesterol panel and liver function tests. A referral to cardiology has been placed to evaluate the syncope episodes, with potential for stress testing to assess cardiovascular function. Until the cardiology evaluation is complete, the patient is advised to avoid strenuous exercise. Additionally, a referral to dermatology has been made to address eczema management. The patient is encouraged to maintain a healthy diet and regular exercise routine, with modifications as needed based on the cardiology findings. Further follow-up with endocrinology is being pursued to manage PCOS effectively, and the patient is advised to monitor for any changes in symptoms or new developments. This note was constructed using voice recognition software. While every effort has been made to ensure accuracy and base manager, still areas may have been included sometimes these areas may affect the content or meeting of the given symptoms. Total time spent caring for the patient today was thirty minutes. This includes time spent before the visit reviewing the chart, time spent during the visit, and time spent after the visit and documentation. Patient was informed and verbally consented to the use of an ambient scribe for clinic note documentation during this visit. Orders: Orders Free T4 (Free Thyroxine) Today E28.2 - Polycystic ovarian syndrome, Z00.00 - Encounter for general adult medical examination without abnormal findings Vitamin B12 and Folate Today E28.2 - Polycystic ovarian syndrome, Z13.21 - Encounter for screening for nutritional disorder TSH reflex Free T4 Today E28.2 - Polycystic ovarian syndrome, Z00.00 - Encounter for general adult medical examination without abnormal findings Comprehensive Met. Panel Today E28.2 - Polycystic ovarian syndrome, Z00.00 - Encounter for general adult medical examination without abnormal findings Vitamin D 25-OH Total Today E28.2 - Polycystic ovarian syndrome, Z00.00 - Encounter for general adult medical examination without abnormal findings Lipid Panel Today Z13.220 - Encounter for screening for lipoid disorders Hemoglobin A1c Today E11.65 - Type 2 diabetes mellitus with hyperglycemia, Z13.1 - Encounter for screening for diabetes mellitus Hepatitis B,C Profile Today R79.89 - Other specified abnormal findings of blood chemistry Referrals Cardiology Referral R55 - Syncope and collapse Dermatology Referral L30.9 - Dermatitis, unspecified, L98.9 - Disorder of the skin and subcutaneous tissue, unspecified
--- OUTSIDE RECORDS SUMMARY | 2025-05-04 08:00 | XMS_ITS | Encounter Summary ---
Author Organization [facility] Address [address] [place] [address] Phone Care Team Providers Care Wire Bound Box Machine Operator Name Role Phone Andria Parks MD Primary Care Provider [phone] Reason for Visit * Reason Comments Med Refill Encounter Details Date Type Department Care Team (Late st Contact Info) Description 06/05/2022 Refill [facility] [address] [place] [address] Andria Parks MD [address] [place] [address] PCOS (polycystic ovarian syndrome) Social History Tobacco [...] BC refill. Pt transferred to front end engineer to book PE. * Telephone Encounter - Cheri Xiao LPN - 06/05/2022 8:50 AM EDT TEEN RELEASE Faxed refill request / last PE 05/20/21 no pending appts Call to pt [phone] not receiving incoming calls / call to [phone] message left to call theoffice documented in this encounter Plan of Treatment Not on file documented as of this encounter Visit Diagnoses Diagnosis PCOS (polycystic ovarian syndrome) Polycystic ovaries documented in this encounter Care Teams Wire Bound Box Machine Operator Relationship Specialty Start Date End Date Andria Parks MD [address] [facility] [place] [address] PCP - General Pediatrics 07/27/23 09/15/23 documented as of this encounter
== END 2025-05-04 08:47 | disposition home or self-care (01) ==
LOC: HO.HMCH 07:57
DX: E28.2 Polycystic ovarian syndrome (principal); J45.20 Mild intermittent asthma, uncomplicated; E66.9 Obesity, unspecified; Z68.32 Body mass index [BMI] 32.0-32.9, adult; R55 Syncope and collapse; L30.9 Dermatitis, unspecified; L68.0 Hirsutism; R79.89 Other specified abnormal findings of blood chemistry

== ENCOUNTER → 2025-05-04 07:56 | Outpatient (BNVA) | payer BC, SELFPAY | DX: E28.2 Polycystic ovarian syndrome (principal); J45.20 Mild intermittent asthma, uncomplicated; R55 Syncope and collapse; L30.9 Dermatitis, unspecified; L68.0 Hirsutism; E66.9 Obesity, unspecified; R79.89 Other specified abnormal findings of blood chemistry; Z68.32 Body mass index [BMI] 32.0-32.9, adult | CPT/HCPCS: 96127 ==

== ENCOUNTER 2025-06-06 22:55 | Emergency (ER) | payer BC, SELFPAY ==
[2025-06-06 23:13] VITALS: BP 120/64; BP 125/74; PULSE 103; PULSE 91; RESP 20; TEMP 36.6; O2SAT 100; BMI 31.7
--- NOTE | 2025-06-06 23:19 | PC.NURSE ---
pt arrived by ems, exchange specialist into hospital attire and placed on bedside monitor.
--- NOTE | 2025-06-06 23:53 | ED_ITS ---
HPI - Allergic Reaction General Chief complaint: Allergic Reaction Stated complaint: reaction to ?nitra? Time Seen by Provider: 06/06/25 23:42 Source: patient and EMS Mode of arrival: EMS Limitations: no limitations History of Present Illness ED Provider: Dr. Erin Contreras HPI narrative: Patient comes to the emergency room via ambulance for an allergic reaction. Patient states that she is known to have multiple known allergies to food including montelongo we and cheek piece. Patient states that this is the 1st time that she reacts to make Rosalinda. Patient states that earlier today, patient started feeling itchiness in closing throat sensation, itchiness throughout her body. Patient states that she has had anaphylactic reactions before to certain foods and is felt the same way. Patient called 911, patient was given 50 mg of Benadryl, 0.3 mg IM of epinephrine and 125 mg of Solu-Medrol prior to arrival. On arrival, patient is asymptomatic. Patient states that she has an party demonstrator appointment pending next month Related Data Home Medications ?Medication ?Instructions ?Recorded ?Confirmed albuterol sulfate 90 mcg/actuation inhalation 03/18/24 05/04/25 aerosol inhaler Previous Rx's ?Medication ?Instructions ?Recorded norgestimate 0.18 mg/0.215mg/0.25 1 tab PO DAILY #84 t abs 03/18/24 mg-ethinyl estradiol 0.025 mg tablet (Jrh-Kn-Wdxwwx) epinephrine 0.3 mg/0.3 mL 0.3 mg (0.3 mL) IM Q10M PRN 06/06/25 injection, auto-injector (EpiPen) anaphylaxis #1 ea Allergies Allergy/AdvReac Type Severity Reaction Status Date / Time chickpea Allergy Mild Difficulty Verified 05/04/25 08:23 Breathing kiwi Allergy Mild Swelling Verified 05/04/25 08:23 nectarine AdvReac Severe Anaphylaxis Verified 06/06/25 23:17 Review of Systems Review of Systems: Constitutional : No Weight loss, No Fever, No Chills, No Night Sweats, No Fatigue, No Malaise ENT/Mouth : No Hearing loss, No Ear Pain, No Nasal Congestion, No Sinus Pain, No Hoarseness, complaining of itchy throat and throat closing sensation, No sore throat, No Rhinorrhea, No Swallowing Difficulty Eyes: No Eye Pain, No Swelling, No Redness, No Foreign Body, No Discharge, No Vision Changes Cardiovascular : No Chest Pain, No SOB, No Dyspnea on Exertion, No Orthopnea, No Edema, No Palpitations Respiratory : No Cough, No Sputum, No Wheezing, No Smoke Exposure, No Dyspnea Gastrointestinal : No Nausea, No Vomiting, No Diarrhea, No Constipation, No abdominal Pain, No Hematochezia, No Melena Genitourinary : no irregular bleeding, No Dysuria, No Urinary Frequency, No Hematuria, No Urinary Incontinence, No Urgency, No Flank Pain, No Urinary Flow Changes, No Hesitancy Musculoskeletal : No joint pain, No Myalgias, No Joint Swelling Skin : Complaining of hives and itchy skin earlier today Neuro : No Weakness, No Numbness, No Paresthesias, No Loss of Consciousness, No Dizziness, No Headache Psych : No Anxiety/Panic, No Depression, No SI/HI/AH/VH, No Social Issues, Heme/Lymph: No Bruising, No Bleeding,No Lymphadenopathy Endocrine : No Polyuria, No Polydipsia, No Temperature Intolerance [facility] Past Medical History Medical History PCOS (polycystic ovarian syndrome) Eczema Asthma Surgical History No pertinent past surgical history Family History Family History Mother No pertinent past medical history Father No pertinent past medical history Social History Social History Household Members: Family Household Members Other:: Mother Housing: House Alcohol intake: current Alcohol intake frequency: a few times a month Patient Tobacco Use Status: Never used Tobacco e-Cigarette/Vaping Use: Currently Using Do you have a plan to hurt others: No Plan service: No Current occupational status: employed and student 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 Oriented X3. No acute distress. Eyes: Pupils equal, round and reactive to light. ENT: Pharynx normal. Normal lips, uvula midline, no phlegmon in the soft palate. No angioedema Neck: Normal inspection. Neck supple. No lymph nodes noted. No crepitus CVS: Normal heart rate and rhythm. Pulses normal. Normal S1 and S2 Respiratory: No respiratory distress. Breath sounds normal. No Wheezing. No rales Abdomen: Soft and nontender. No rigidity. No distention. Skin: Skin warm and dry. Normal skin color. Normal skin turgor. Extremities: No lower extremity edema. No Lacerations. No Rash Neuro: Oriented X 3. No motor deficit. No sensory deficit. Moving all extremities. No slurred speech. CN 2 through 12 grossly intact Psych: calm, cooperative, normal affect Vital Signs: Vital Signs - 24 hr 06/06/25 23:13 Temperature 98 F Pulse Rate 91 Respiratory Rate 20 Blood Pressure 120/64 Pulse Oximetry 100 Oxygen Delivery Method Room Air BMI result Body Mass Index 31.7 Course Course Course Narrative: Patient arrived via ambulance for an anaphylactic reaction to fruit/neck during On arrival, patient asymptomatic, normal vitals Medical Decision Making Medical Decision Making MDM Narrative: Per EMS and patient, patient had an anaphylactic reaction earlier today. Patient was given IM epinephrine, IV Solu-Medrol and Benadryl Patient's vitals stable, no signs of angioedema, no wheezing, no hives Patient has an appointment pending with her new party demonstrator Patient remains asymptomatic. Differential Diagnosis Differential Diagnoses: The differential diagnosis associated with the presentation includes (Anaphylactic reaction, hypersensitivity reaction) Admission/Observation Consideration of admission/observation: Escalation of care including admission/observation considered (Given patient's earlier severe reaction, obs ervation was considered. ) Critical Care Time Critical Care Time Critical Care Time: Yes Total Critical Care Time: 35 Attestation: I have personally provided critical care time. Time includes review of lab data, radiology results, discussion with consultants, and monitoring for potential decompensation. Intervention performed as documented. Discharge Plan Discharge Clinical Impression: Anaphylaxis Patient Disposition: Home, Self-Care Instructions: Food Allergy (ED) Additional Instructions: Please follow-up with your primary care physician tomorrow. If you have any worsening or new symptoms, please return to the emergency room or call 911 Prescriptions: New epinephrine [EpiPen] 0.3 mg/0.3 mL auto-injector 0.3 mg IM Q10M PRN (Reason: anaphylaxis) Qty: 1 1RF Rx Instructions: for 2 doses No Action albuterol sulfate 90 mcg/actuation HFA aerosol inhaler inhalation norgestimate-ethinyl estradiol [Lcl-Un-Ukizgz] 0.18/0.215/0.25 mg-25 mcg tablet 1 tab PO DAILY Qty: 84 4RF Print Language: Danish
--- NOTE | 2025-06-07 00:11 | PC.NURSE ---
pt foreign exchange trader to hospital attire, place on bed side monitor, no sign of respiratory distress. Dr. Ibanez assess pt.
--- OUTSIDE RECORDS SUMMARY | 2025-06-07 00:14 | XMS_ITS | Clinical Summary ---
Author Organization [address] [facility] Address [address] [place] [address] Phone Care Team Providers Care Marine Electronics Repairer Name Role Phone Thea Alvarenga MD Primary Care Provider [phone] Allergies Active Allergy Reactions Criticality Noted Date [...] 6.7 g 11 5 12/05/19 26 Active Kjd-Sg-Tqshmy 0.18/0.215/0.25 mg-0.025 mg per tablet Take 1 tablet by mouth 1 (one) time each day. 28 tablet 5 5 Active Active Problems Problem Noted Date Diagnosed Date Asthma 01/14/2024 Eczema 01/14/2024 Obesity (BMI 30-39.9) 12/25/2023 Encounters Date Type Department Care Team Description 05/22/2025 Telephone Internal Medicine [facility] [address] [facility] [address] [place] [phone] Thea Alvarenga MD 04/05/2025 Telephone Internal Medicine - [address] [place] [address] Thea Alvarenga MD Med Refill from Last 3 Months Immunizations Name Administration [...] 80 12/05/2024 3:16 PM EST Temperature 36.7 C (98.1 F) 12/05/2024 3:16 PM EST Respiratory Rate - - Oxygen Saturation 100% 12/05/2024 3:16 PM EST Inhaled Oxygen Concentration - - Weight 81.6 kg (180 lb) 12/05/2024 3:16 PM EST Height 154.9 cm (5' 1 ) 12/05/2024 3:16 PM EST Body Mass Index 34.01 12/05/2024 3:16 PM EST Plan of Treatment Upcoming Encounters Date Type Department Care Team ([facility] st Contact Info) Description 07/06/2025 11:30 AM EDT Office Visit Internal Medicine - [address] [place] [address] Thea Alvarenga MD [address] [place] [address] [address] [place] [address] Health Maintenance Due Date Last Done Comments Gonorrhea/Chlamydia Screening 2001 Pneumococcal Vaccine: Pediatrics (0 to 5 Years) and At-Risk Patients (6 to 49 Years) (1 of 1 - PPSV23) 2007 06/05/2003, 06/20/2002, 04/15/2002, Additional history exists Cervical Cancer Screening: Pap Smear 2022 HIV Screening 06/09/2024 Social Influencers of Health Screening 06/09/2024 COVID-19 Vaccine ( season) 2024 Depression Screening 11/16/2024 Influenza Vaccine (#1) 2025 Cholesterol Screening (Lipid Panel) 12/25/2028 12/25/2023 [...] Procedure Name Priority Date/Time Associated Diagnosis Comments HM HEPATITIS C SCREENING Routine 12/25/2023 LIPID PANEL Routine 12/25/2023 from Last 3 Months or Most Recently Relevant to Health Maintenance Results * Hepatitis C Screening (12/25/2023) HM Hepatitis C Screening Abstracted Historical Provider HEALTH MAINTENANCE Final Result * [...] Most Recently Relevant to Health Maintenance [facility] Care Teams Marine Electronics Repairer Relationship Specialty Start Date End Date Thea Alvarenga MD [address] [facility] [address] [place] [address] PCP - General 09/21/23
[2025-06-07 00:17] VITALS: BP 120/64; PULSE 91; RESP 20; TEMP 36.6; O2SAT 100
--- NOTE | 2025-06-07 00:18 | PC.NURSE ---
reviewed discharge instructions wt pt. pt verbalized under standing. no sign of respiratory distress, pt had a steady gait upon discharge.
== END 2025-06-07 00:20 | disposition home or self-care (01) ==
LOC: HO.ED 06-07 00:12
PROVIDERS: Emergency Provider Emergency Medicine
DX: T78.09XA Anaphylactic reaction due to other food products, initial encounter (principal); R06.02 Shortness of breath; X58.XXXA Exposure to other specified factors, initial encounter; L50.0 Allergic urticaria; Z79.899 Other long term (current) drug therapy
CPT/HCPCS: 99284; 99291

== ENCOUNTER 2025-07-11 08:28 | Outpatient (REF) | payer BC, SELFPAY ==
--- OUTSIDE RECORDS SUMMARY | 2025-07-11 08:40 | XMS_ITS | Encounter Summary ---
Author Organization [facility] Address [address] [place] [address] Phone Care Team Providers Care A And P Mechanic Name Role Phone Andria Parks MD Primary Care Provider Encounter Details Date Type Department Care Team (Late st Contact Info) Description 10/16/2016 Documentation [facility] [place] [address] [place], [place] [phone] Family Medicine, Physician [address] [place], [place] [address] Social History Tobacco Use Types Packs/Day Years [...] on filedocumented in this encounter Care Teams A And P Mechanic Relationship Specialty Start Date End Date Andria Parks MD [address] [place] [address] [place] [address] PCP - General Pediatrics 07/27/23 09/15/23 documented as of this encounter
--- OUTSIDE RECORDS SUMMARY | 2025-07-11 08:40 | XMS_ITS | Encounter Summary ---
Author Organization [facility] Address [address] [place] [address] Phone Care Team Providers Care Histologist Technologist Name Role Phone Andria Parks MD Primary Care Provider [phone] Reason for Visit * Reason Comments Med Refill Encounter Details Date Type Department Care Team (Late st Contact Info) Description 06/05/2022 Refill [facility] [place] [address] [place] [address] Andria Parks MD [address] [place] [address] PCOS (polycystic ovarian syndrome) Social History Tobacco [...] is requesting BC refill. Pt transferred to motel front desk attendant to book PE. * Telephone Encounter - Cheri Xiao LPN - 06/05/2022 8:50 AM EDT TEEN RELEASE Faxed refill request / last PE 05/20/21 no pending appts Call to pt [phone] not receiving incoming calls / call to [phone] message left to call theoffice documented in this encounter Plan of Treatment Not on file documented as of this encounter Visit Diagnoses Diagnosis PCOS (polycystic ovarian syndrome) Polycystic ovaries documented in this encounter Care Teams Histologist Technologist Relationship Specialty Start Date End Date Andria Parks MD [address] [facility] [place] [address] PCP - General Pediatrics 07/27/23 09/15/23 documented as of this encounter
--- OUTSIDE RECORDS SUMMARY | 2025-07-11 08:40 | XMS_ITS | Clinical Summary ---
Author Organization [address] [place] [address] [place] [phone] Phone Care Team Providers Care Sales Support Specialist Name Role Phone Thea Alvarenga MD Primary Care Provider Allergies Active Allergy Reactions Criticality Noted Date [...] mouth at bedtime for 360 days. 4 Active albuterol HFA (PROAIR HFA ; PROVENTIL HFA ; VENTOLIN HFA) 90 mcg/actuation inhaler Inhale 2 puffs by mouth every 4 (four) hours if needed for wheezing or shortness of breath. 6.7 g 11 5 12/05/19 26 Active Jtj-Yf-Ppfrng 0.18/0.215/0.25 mg-0.025 mg per tablet Take 1 tablet by mouth 1 (one) time each day. 28 tablet 5 5 Active Active Problems Problem Noted Date Diagnosed Date Asthma 01/14/2024 Eczema 01/14/2024 Obesity (BMI 30-39.9) 12/25/2023 Encounters Date Type Department Care Team Description 05/22/2025 Telephone Internal Medicine [facility] [address] [facility] [address] [place] [address] Thea Alvarenga MD from Last 3 Months Immunizations Name Administration [...] 12/05/2024 3:16 PM EST Plan of Treatment Health Maintenance Due Date [...] us Historical Provider LAB BLOOD ORDERABLES Sandrine miner Result from Last 3 Months or Most Recently Relevant to Health Maintenance Insurance [facility] Care Teams Sales Support Specialist Relationship Specialty Start Date End Date Thea Alvarenga MD [address] [place] [phone] PCP - General 09/21/23
--- OUTSIDE RECORDS SUMMARY | 2025-07-11 08:40 | XMS_ITS | Encounter Summary ---
Author Organization [facility] Address [address] [place] [address] Phone Care Team Providers Care Floor Layer Name Role Phone Andria Parks MD Primary Care Provider [phone] Encounter Details Date Type Department Care Team (Late st Contact Info) Description 10/16/2016 Documentation [facility] [place] [address] [place], [place] [phone] Family Medicine, Physician [address] [place], [place] [phone] Social History Tobacco Use Types Packs/Day Years [...] on filedocumented in this encounter Care Teams Floor Layer Relationship Specialty Start Date End Date Andria Parks MD [address] [place] [address] [place] [address] PCP - General Pediatrics 07/27/23 09/15/23 documented as of this encounter
--- OUTSIDE RECORDS SUMMARY | 2025-07-11 08:40 | XMS_ITS | Encounter Summary ---
Author Organization [facility] Address [address] [place] [phone] Phone Care Team Providers Care Casing In Line Setter Name Role Phone Andria Parks MD Primary Care Provider Encounter Details Date Type Department Care Team (Late st Contact Info) Description 07/02/2017 Conversion Encounter [facility] [address] [place] [address] Social History Tobacco Use Types Packs/Day Years [...] on filedocumented in this encounter Care Teams Casing In Line Setter Relationship Specialty Start Date End Date Andria Parks MD [address] [place] [address] PCP - General Pediatrics 07/27/23 09/15/23 documented as of this encounter
--- OUTSIDE RECORDS SUMMARY | 2025-07-11 08:40 | XMS_ITS | Encounter Summary ---
Author Organization [facility] Address [address] [place] [address] Phone Care Team Providers Care Summons Server Name Role Phone Andria Parks MD Primary Care Provider Encounter Details Date Type Department Care Team (Late st Contact Info) Description 04/18/2013 Documentation [facility] [place] [address] [place], [place] [phone] Family Medicine, Physician [address] [place], [place] [address] Social History Tobacco Use Types Packs/Day Years [...] on filedocumented in this encounter Care Teams Summons Server Relationship Specialty Start Date End Date Andria Parks MD [address] [place] [address] [place] [address] PCP - General Pediatrics 07/27/23 09/15/23 documented as of this encounter
--- OUTSIDE RECORDS SUMMARY | 2025-07-11 08:40 | XMS_ITS | Encounter Summary ---
Author Organization [facility] Address [address] [place] [address] Phone Care Team Providers Care Producer Assistant Name Role Phone Andria Parks MD Primary Care Provider Reason for Visit * Reason Comments Med Refill Encounter Details Date Type Department Care Team (Late st Contact Info) Description 02/13/2020 Refill [facility] [place] [address] [place] [address] Andria Parks MD [address] [place] [address] PCOS (polycystic ovarian syndrome) Social History Tobacco [...] ovaries documented in this encounter Care Teams Producer Assistant Relationship Specialty Start Date End Date Andria Parks MD [address] [place] [address] [place] [address] PCP - General Pediatrics 07/27/23 09/15/23 documented as of this encounter
--- OUTSIDE RECORDS SUMMARY | 2025-07-11 08:40 | XMS_ITS | Encounter Summary ---
Author Organization [facility] Address [address] [place] [address] Phone Care Team Providers Care Hand Laminator Name Role Phone Andria Parks MD Primary Care Provider Encounter Details Date Type Department Care Team (Late st Contact Info) Description 01/07/2017 Documentation [facility] [place] [address] [place], [place] [phone] Family Medicine, Physician [address] [place], [place] [address] Social History Tobacco Use Types Packs/Day Years [...] on filedocumented in this encounter Care Teams Hand Laminator Relationship Specialty Start Date End Date Andria Parks MD [address] [place] [address] [place] [address] PCP - General Pediatrics 07/27/23 09/15/23 documented as of this encounter
--- OUTSIDE RECORDS SUMMARY | 2025-07-11 08:40 | XMS_ITS | Encounter Summary ---
Author Organization [facility] Address [address] [place] [address] Phone Care Team Providers Care Nuclear Equipment Research Engineer Name Role Phone Andria Parks MD Primary Care Provider [phone] Reason for Visit * Reason Comments Med Refill Encounter Details Date Type Department Care Team (Late st Contact Info) Description 10/24/2019 Refill [facility] [place] [address] [place] [address] Andria Parks MD [address] [place] [address] PCOS (polycystic ovarian syndrome) Social History Tobacco [...] ovaries documented in this encounter Care Teams Nuclear Equipment Research Engineer Relationship Specialty Start Date End Date Andria Parks MD [address] [place] [address] [place] [address] PCP - General Pediatrics 07/27/23 09/15/23 documented as of this encounter
--- OUTSIDE RECORDS SUMMARY | 2025-07-11 08:40 | XMS_ITS | Encounter Summary ---
Author Organization [facility] Address [address] [place] [address] Phone Care Team Providers Care Beef Cattle Farm Worker Name Role Phone Andria Parks MD Primary Care Provider Encounter Details Date Type Department Care Team (Late st Contact Info) Description 10/16/2016 Documentation [facility] [place] [address] [place], [place] [phone] Family Medicine, Physician [address] [place], [place] [phone] Social History Tobacco Use Types Packs/Day Years [...] on filedocumented in this encounter Care Teams Beef Cattle Farm Worker Relationship Specialty Start Date End Date Andria Parks MD [address] [place] [address] [place] [address] PCP - General Pediatrics 07/27/23 09/15/23 documented as of this encounter
--- OUTSIDE RECORDS SUMMARY | 2025-07-11 08:40 | XMS_ITS | Encounter Summary ---
Author Organization [facility] Address [address] [place] [address] Phone Care Team Providers Care Design Engineer Products Name Role Phone Andria Parks MD Primary Care Provider Encounter Details Date Type Department Care Team (Late st Contact Info) Description 10/16/2016 Documentation [facility] [place] [address] [place], [place] [address] Family Medicine, Physician [address] [place], [place] [address] Social History Tobacco Use Types Packs/Day Years [...] on filedocumented in this encounter Care Teams Design Engineer Products Relationship Specialty Start Date End Date Andria Parks MD [address] [place] [address] [place] [address] PCP - General Pediatrics 07/27/23 09/15/23 documented as of this encounter
--- OUTSIDE RECORDS SUMMARY | 2025-07-11 08:41 | XMS_ITS | Clinical Summary ---
Author Organization [facility] Address [address] [place] [address] Phone Care Team Providers Care Or Director Name Role Phone Unavailable Primary Care Provider [...] 1 07/28/20 23 Active norgestimate-ethiny l estradiol (Zqp-Zm-Mornsx) 0.18/0.215/0.25 MG-25 MCG per tabletIndications:P COS (polycystic [...] does not remember her name (was in [place]) Seasonal allergic rhinitis 05/16/2020 Overview (05/16/2020): On [...] Followed by replacement of Dr. Howell in [place]; pt reports using all Cerave products and recently added OTC Adalapine 0.1% to face Encounters Date Type Department Care Team Description 05/24/2025 Telephone [facility] - [address] [address] Hanh Cabrera MA Medical Records from Last 3 Months Immunizations Immunization Administration [...] 87 07/28/2023 3:04 PM EDT Temperature 36.1 C (97 F) 07/02/2022 9:27 AM EDT Respiratory Rate 18 04/28/2018 3:35 PM EDT Oxygen Saturation 100% 03/24/2022 3:59 PM EDT Inhaled Oxygen Concentration - - Weight 76.4 kg (168 lb 6.4 oz) 07/28/2023 3:04 P M EDT Height 154 cm (5' 0.63 ) 07/28/2023 3:04 PM EDT Body Mass Index 32.21 07/28/2023 3:04 PM EDT Plan of Treatment Health Maintenance Due Date Last Done Comments COVID-19 Vaccine ( - 2023-2 5 season) 2024 Influenza Vaccines (#1) 2025 DTaP,Tdap,and Td Vaccines (8 - Td or [...] Completed 07/28/2023, 05/16/2020 Procedures * Due to [facility] law, this organization might not be sharing sensitive test results. Procedure Name Priority Date/Time Associated Diagnosis Comments CHLAMYDIA AND GONORRHEA, AMPLIFIED Routine 07/28/2023 4:12 PM EDT Screening examination for bacterial and spirochetal disease from Last 3 Months or Most Recently Relevant to Health Maintenance Results * Due to [place] [employer] law, this organization might not be sharing sensitive test results. * Chlamydia and Gonorrhea, Amplified (07/28/2023 4:12 PM EDT) Chlamydia Trachomatis, DNA Probe NEGATIVE (NEG) [facility] Comment: No Chlamydia Trachomatis RNA detected in this patient's sample (REFERENCE RANGE/NORMAL VALUE: NOT DETECTED) Note: This test uses verification lead- mediated amplification method to detect rRNA from C. Trachomatis URINE GC AMP PROBE NEGATIVE (NEG) [facility] Comment: No Neisseria Gonorrhoeae RNA detected in this patient's sample (REFERENCE RANGE/NORMAL VALUE: NOT DETECTED) NOTE: This test uses verification lead-mediated amplification method to detect rRNA from N.Gonorrhoeae. [...] without risk of sexual abuse. Consult the [facility] if needed. Contact phone number . Therapeutic failure or success cannot be determined with the Aptima Combo2 assay since nucleic acid may persist following appropriate antimicrobial therapy. The Centers for Disease Control and Prevention (CDC) recommends confirmatory retesting using culture or a different nucleic acid amplification test when positive results occur, if indicated. Testing performed or reported by [facility], a Service of [facility], [address] [place] [address] Rogers Reyes MD, [employer] [facility]# [id number] Urine (Urine) 07/28/2023 4:1 2 PM EDT 07/29/2023 12:10 AM EDT us Andria Parks MD LAB MICROBIOLOGY - GENERAL ORDERABLES Final Result [facility] from Last 3 Months or Most Recently Relevant to Health Maintenance Insurance [facility] [place] [address] [facility] H[facility]
[2025-07-11 10:36] LABS: Hemoglobin A1C 97.5535 umol/L; Total Hemoglobin (HGBA1C) 3283.1057 umol/L
[2025-07-11 10:53] LABS: HBS Num1 0.17 mIU/mL (0-7.99); HBc Num1 0.04 S/CO (0.00-0.79); HBsAGNum1 0.43 S/CO (0.00-0.99); Hepatitis B Surface Antigen Negative (Negative); ~HepC Num1 0.21 S/CO (0.00-0.79); ~Hepatitis B Surface Antibody NONREACTIVE (Nonreactive); ~Hepatitis C Antibody Nonreactive (Nonreactive)
[2025-07-11 11:03] LABS: Folate 12.2 ng/mL (> or = 4.0); Vitamin B12 597 pg/mL (200-900)
[2025-07-11 11:08] LABS: Alanine Aminotransferase 21 U/L (0-31); Albumin Level 3.8 g/dL (3.5-5.0); Alkaline Phosphatase 34 U/L (39-117); Anion Gap 11 (12-20); Aspartate Amino Transferase 21 U/L (5-31); Blood Urea Nitrogen 15 mg/dL (9-16); Calcium 8.8 mg/dL (8.4-10.2); Carbon Dioxide 25 mmol/L (22-29); Chloride 106 mmol/L (96-108); Cholesterol 150 mg/dL (<200); Estimated Glomerular Filt Rate > 60; Free T4 (Free Thyroxine) 0.93 ng/dL (0.71-1.85); HDL Cholesterol 69 mg/dL (>40); Potassium 3.8 mmol/L (3.3-5.1); Sodium 138 mmol/L (135-145); Total Protein 5.9 g/dL (6.5-8.0); Triglycerides 40 mg/dL (<150)
== END 2025-07-11 08:29 | disposition home or self-care (01) ==
LOC: HO.HMGCLDS 08:28
DX: Z00.00 Encounter for general adult medical examination without abnormal findings (principal); Z13.21 Encounter for screening for nutritional disorder; Z13.220 Encounter for screening for lipoid disorders; Z13.1 Encounter for screening for diabetes mellitus; E28.2 Polycystic ovarian syndrome; E11.65 Type 2 diabetes mellitus with hyperglycemia; R79.89 Other specified abnormal findings of blood chemistry
CPT/HCPCS: 36415; 80053; 80061; 82306; 82607; 82746; 83036; 84439; 84443; 86704; 86706; 86803; 87340

== ENCOUNTER 2025-07-25 08:15 | Outpatient (AMB) | payer BC, SELFPAY ==
[2025-07-25 08:17] VITALS: BP 92/52; PULSE 86; O2SAT 99; BMI 33.4
--- NOTE | 2025-07-25 08:17 | MHC.OFFVIS ---
Vital Signs 07/25/25 08:17 Height 5 ft 1 in Weight 176 lb 9.444 oz BMI 33.4 BP 92/52 L Blood Pressure Location Lt brachial Position Sitting Pulse 86 Pulse Source Pulse Oximeter Pulse Oximetry (%) 99 Oxygen Delivery Method Room Air Intake Visit Reasons: PCOS/other specified abnormal findings of blood Intake Note: New patient present today for PCOS/other specified abnormal findings of blood. Fiberglass Container Winding Operator Required: No Accompanied by: Self / Same As Patient Allergies chickpea Allergy (Mild, Verified 07/25/25 08:21) Difficulty Breathing kiwi Allergy (Mild, Verified 07/25/25 08:21) Swelling nectarine Adverse Reaction (Severe, Verified 07/25/25 08:21) Anaphylaxis Medication List - Last Reconciled 07/25/25 by Sharron Alvarenga MD albuterol sulfate 90 mcg/actuation inhalation epinephrine (EpiPen) 0.3 mg (0.3 mL) IM Q10M PRN norgestimate-ethinyl estradiol 0.18/0.215/0.25 mg-0.025 mg (Gxl-Lx-Udpnyi) 1 tab PO DAILY spironolactone 25 mg PO DAILY HPI Comments Details: 24-year-old female coming in today for initial evaluation of PCOS. Diagnosed 2024. Ultrasound pelvis 02/13/2025 consistent with polycystic ovaries. Labs 01/20/2025 showed normal TSH, normal prolactin, mildly elevated total testosterone of 84 ng/dL, normal free testosterone, negative tests, normal 17 hydroxyprogesterone level. Labs 07/11/2025 showed normal cholesterol levels, A1c of 4.9%, normal kidney function. Normal AST and ALT. presents with no complaints of hirsutism on face and abdomen , acne, hair loss. She has no history of HTN, hyperlipidemia, prediabetes. Menarche:[age] years LMP: 06/24/25, on OCP uji-uv-zlcggm since age 17 , gets monthly periods sees obamira last seen March 2025, was having some irregular menstruation 2023 history: , currently not sexually active, identifies as heterosexual, not interested in currently Acne : seeing dermatology Medications:OCP since age 17, spironolactone 25 mg daily restarted recntly June 2025 Diet:low carb, no gluten Exercise:4 times a week , weightlifting and cardio for an hour 30 mins Weight Trend: 176 lbs , has been gaining weight now, highest weight 228 lbs in high school, was overweight growing up, then dropped 60 lbs senior year with lifestyle Cosmetic therapies: shaves the face once every week or two Physical exam General: sitting comfortably in no acute distress HEENT: normocephalic/atraumatic, Neck: supple, Cardiac: normal heart sounds Pulm: normal breath sounds B/L, no added breath sounds Abd: not distended, Laboratory Tests 01/20/25 07/11/25 15:50 08:41 Estimated GFR > 60 Hemoglobin A1c % 4.9 AST 21 ALT 21 Triglycerides 40 Cholesterol 150 LDL Cholesterol, Calc 73 HDL Cholesterol 69 TSH 0.79 2.29 Prolactin 8.9 Total Testosterone 84 H Fr Testosterone Dialys 2.6 Beta HCG, Quant < 2 17-Hydroxyprogesterone 66 CLINICAL HISTORY: L70.9 - Acne, unspecified 02/13/25 US female pelvis LMP:5 days ago. Technique: Ultrasound examination of the pelvis was performed with transabdominal technique. Transvaginal images were attempted, however not completed. Comparison: None Findings: Anteverted uterus measuring 7.6 x 2.6 x 3.7cm without masses. Normal endometrial thickness of 0.7cm. The right ovary is normal in size, measuring 5.1 x 1.7 x 2.2cm, volume of 10.0mL. There is normal echogenicity and vascularity. No lesions. There are numerous small follicles. The left ovary is enlarged, measuring 5.1 x 3.6 x 4.5cm, volume of 43.3mL. There is normal echogenicity and vascularity. Simple cyst measuring 3.0 x 2.8 x 4.4 cm. There is a trace amount of fluid, which is likely physiologic. Impression: Enlarged left ovary secondary to a simple cyst measuring 4.4 cm. No follow up is required. Suspect polycystic ovarian morphology. This document has been electronically signed by: Stephanie Wong MD on 02/13/2025 13:59:46 [facility] Medical History PCOS (polycystic ovarian syndrome) Eczema Asthma Surgical History No pertinent past surgical history Family History Mother No pertinent past medical history Father No pertinent past medical history Social History Household Members: Family Household Members Other:: Mother Housing: House Alcohol intake: current Alcohol intake frequency: holidays/special occasions only Patient Tobacco Use Status: Never used Tobacco e-Cigarette/Vaping Use: Currently Using service: No Current occupational status: employed and student 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; [employer]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 Cognitive needs: No Hearing needs: No Vision needs: No Female Reproductive History Menstrual Age of Menarche: 18 Physical Exam Vital Signs: Last Vital Signs Pulse 86 07/25/25 08:17 BP 92/52 L 07/25/25 08:17 Pulse Ox 99 07/25/25 08:17 Oxygen Delivery Method Room Air 07/25/25 08:17 BMI result Body Mass Index 33.4 Assessment & Plan Assessment & Plan (1) PCOS (polycystic ovarian syndrome): Code(s): E28.2 - Polycystic ovarian syndrome Category: Medical Plan: 24-year-old female with PCOS presenting with complaints of hirsutism, history of irregular menstruation, obesity, acne and hair loss. Ultrasound pelvis 02/13/2025 consistent with polycystic ovaries. Labs 01/20/2025 showed normal TSH, normal prolactin, mildly elevated total testosterone of 84 ng/dL, normal free testosterone, negative tests, normal 17 hydroxyprogesterone level. Labs 07/11/2025 showed normal cholesterol levels, A1c of 4.9%, normal kidney function. Normal AST and ALT. Along with features of hyperandrogenism and history of irregular menstruation, consistent with PCOS presentation. I reviewed with the patient the implications of polycystic ovarian syndrome in terms of 1) reproductive health (increased risk of infertity, miscarriage), 2) metabolic issues (type 2 diabetes, hypertension, dyslipidemia, cardiovascular disease) and 3) hyperandrogenism (acne, hirsuitism, male pattern hair loss). We reviewed that weight loss in overweight woman can help improve these morbidities, but often woman with PCOS do need further assistance with fertility using metformin plus clomiphene or letrazole. She is not interested in at this time. She is on oral contraceptive pill we will norgestimate and ethinyl estradiol. Norgestimate has low androgen [place] so that is okay. This is keeping her menstrual cycles regular for now. She should continue on oral contraceptive pills. She was also started on spironolactone in June 2025 for acne and hair loss. By Dermatology. Currently on 25 mg daily. We recommend repeating labs 2 weeks after starting spironolactone with kidney function and liver tests. We will order. Her blood pressure is on the lower side so would not recommend going up more on the dose of spironolactone. Weight loss addressed below. Plan: -lifestyle modification as advised below -television actor referral placed -continue spironolactone 25 mg daily -continue OCP -ordered BMP, AST, ALT be to be done now -follow up in 6 months (2) Obesity (BMI 30-39.9): Code(s): E66.9 - Obesity, unspecified Category: Medical Plan: Current weight 176 lb with BMI 33.4 kg per m2 does not have any cushingoid or acromegalic features Normal A1c, lipid panel from June 2025. With comorbidity of PCOS I reviewed with patient the importance of weight loss as it relates to decreasing the risk of diabetes, cardiovascular disease, obstructive sleep apnea,PCOS, arthritis. We reviewed the importance of decreasing total calorie consumption, minimizing fats and carbohydrates. And increasing protein and fiber. Discussed 500 calorie deficit plan with the reyes such as lose it, my fitness pal Exercise plan discussed for 30 minutes of cardio 5 days a week +2-3 3 days of resistance training She is quite motivated, we will have her see the television actor as well. Plan: -referral for television actor placed -Lifestyle modification advised Plan I spent 45 minutes in reviewing the record, seeing the patient and documenting in the medical record. Orders: Orders Basic Metabolic Panel Today E28.2 - Polycystic ovarian syndrome Aspartate Amino Transferase Today E28.2 - Polycystic ovarian syndrome Alanine Aminotransferase Today E28.2 - Polycystic ovarian syndrome Referrals Claims Adjustor Nutrition Referral E28.2 - Polycystic ovarian syndrome, E66.9 - Obesity, unspecified Patient Instructions: Weight loss counselling ? Limit added sugars to less than 25 grams daily. There are 4.2 grams of sugar per teaspoon of sugar. A teaspoon of honey has 6 grams of sugar! Bread also can have more sugar than you think-check labels ? No soda or juices. Drink water, unsweetened iced tea or seltzer ? Limit eating out/take out or prepared meals to twice weekly at most ? Avoid red meat, hot dogs, amor and deli meat. Substitute plant protein for animal protein as much as you can. Beans, nuts, tofu, soy milk ? Limit cheese to 1 ounce a few times weekly ? Eat high fiber foods like beans, apples and green veggies, salsa is a great snack with whole grain cracker like Wasa ? Look for the whole grain stamp when choosing bread etc. Aim for 48 grams of whole grains daily. Whole wheat does not equal whole grains! ? Don't keep tempting treats in the house. Go out once in a while for a treat. ? Don't eat anything deep fried or cream based-no sour cream Exercise plan Cardio 30 mins 5 days a week Resistance training 20 to 30 mins 2-3 days a week Use apps such as my fitness plan and lose it to amount for 500 calorie deficit daily to lose 1 lb per week 20 g fiber daily Increase protein intake for 0.5 to 1 g/ kg daily see television actor Do blood work Continue spironolactone 25 mg daily and borth control pill Coding Level of Care Code New Pt Level 4 (81895) Diagnoses PCOS (polycystic ovarian syndrome) E28.2 Obesity (BMI 30-39.9) E66.9 Time Spent (min) 45
--- OUTSIDE RECORDS SUMMARY | 2025-07-25 09:08 | XMS_ITS | Encounter Summary ---
Author Organization [facility] Address [address] [place] [address] Phone Care Team Providers Care Deaf And Hard Of Hearing Teacher Name Role Phone Andria Parks MD Primary Care Provider Encounter Details Date Type Department Care Team (Late st Contact Info) Description 10/16/2016 Documentation [facility] Family Medicine [address] [place], [place] [phone] Family Medicine, Physician [address] [place], [place] [phone] Social History Tobacco Use Types Packs/Day Years [...] on filedocumented in this encounter Care Teams Deaf And Hard Of Hearing Teacher Relationship Specialty Start Date End Date Andria Parks MD [address] [place] [address] [place] [address] PCP - General Pediatrics 07/27/23 09/15/23 documented as of this encounter
--- OUTSIDE RECORDS SUMMARY | 2025-07-25 09:08 | XMS_ITS | Encounter Summary ---
Author Organization [facility] Address [address] [place] [address] Phone Care Team Providers Care Manager Sourcing Name Role Phone Andria Parks MD Primary Care Provider [phone] Reason for Visit * Reason Comments Med Refill Encounter Details Date Type Department Care Team (Late st Contact Info) Description 02/13/2020 Refill [facility] [place] [address] [place] [address] Andria Parks MD [address] [place] [address] PCOS (polycystic ovarian syndrome) Social History Tobacco [...] ovaries documented in this encounter Care Teams Manager Sourcing Relationship Specialty Start Date End Date Andria Parks MD [address] [place] [address] [place]ing[place] [address] PCP - General Pediatrics 07/27/23 09/15/23 documented as of this encounter
--- OUTSIDE RECORDS SUMMARY | 2025-07-25 09:08 | XMS_ITS | Encounter Summary ---
Author Organization [facility] Address [address] [place] [address] Phone Care Team Providers Care Medical Collections Representative Name Role Phone Andria Parks MD Primary Care Provider [phone] Reason for Visit * Reason Comments Med Refill Encounter Details Date Type Department Care Team (Late st Contact Info) Description 10/24/2019 Refill [facility] [place] [address] [place] [address] Andria Parks MD [address] [place] [address] PCOS (polycystic ovarian syndrome) Social History Tobacco [...] ovaries documented in this encounter Care Teams Medical Collections Representative Relationship Specialty Start Date End Date Andria Parks MD [address] [place] [address] [place] [address] PCP - General Pediatrics 07/27/23 09/15/23 documented as of this encounter
--- OUTSIDE RECORDS SUMMARY | 2025-07-25 09:08 | XMS_ITS | Encounter Summary ---
Author Organization [facility] Address [address] [place] [address] Phone Care Team Providers Care Heat Treat Technician Name Role Phone Andria Parks MD Primary Care Provider [phone] Reason for Visit * Reason Comments Med Refill Encounter Details Date Type Department Care Team (Late st Contact Info) Description 06/05/2022 Refill [facility] [place] [address] [place] [address] Andria Parks MD [address] [place] [address] PCOS (polycystic ovarian syndrome) Social History Tobacco [...] requesting BC refill. Pt transferred to front line leader to book PE. * Telephone Encounter - Cheri Xiao LPN - 06/05/2022 8:50 AM EDT TEEN RELEASE Faxed refill request / last PE 05/20/21 no pending appts Call to pt [phone] not receiving incoming calls / call to [phone] message left to call theoffice documented in this encounter Plan of Treatment Not on file documented as of this encounter Visit Diagnoses Diagnosis PCOS (polycystic ovarian syndrome) Polycystic ovaries documented in this encounter Care Teams Heat Treat Technician Relationship Specialty Start Date End Date Andria Parks MD [address] [facility] [place] [address] PCP - General Pediatrics 07/27/23 09/15/23 documented as of this encounter
--- OUTSIDE RECORDS SUMMARY | 2025-07-25 09:08 | XMS_ITS | Encounter Summary ---
Author Organization [facility] Address [address] [place] [address] Phone Care Team Providers Care Sample Taker Operator Name Role Phone Andria Parks MD Primary Care Provider Encounter Details Date Type Department Care Team (Late st Contact Info) Description 01/07/2017 Documentation [facility] Family Medicine [address] [place], [place] [phone] Family Medicine, Physician [address] [place], [place] [address] Social History Tobacco Use Types Packs/Day Years [...] on filedocumented in this encounter Care Teams Sample Taker Operator Relationship Specialty Start Date End Date Andria Parks MD [address] [place] [address] [place] [address] PCP - General Pediatrics 07/27/23 09/15/23 documented as of this encounter
--- OUTSIDE RECORDS SUMMARY | 2025-07-25 09:08 | XMS_ITS | Clinical Summary ---
Author Organization [address] [place] [address] [place] [phone] Phone Care Team Providers Care Tram Operator Name Role Phone Thea Alvarenga MD Primary Care Provider [phone] Allergies Active Allergy Reactions Criticality Noted Date [...] 6.7 g 11 5 12/05/19 26 Active Tpt-Qj-Yiqdra 0.18/0.215/0.25 mg-0.025 mg per tablet Take 1 tablet by mouth 1 (one) time each day. 28 tablet 5 5 Active Active Problems Problem Noted Date Diagnosed Date Asthma 01/14/2024 Eczema 01/14/2024 Obesity (BMI 30-39.9) 12/25/2023 Encounters Date Type Department Care Team Description 05/22/2025 Telephone Internal Medicine [facility] [address] [facility] [address] [place] [address] Thea Alvarenga MD from Last 3 Months [...] 06/09/2024 Social Influencers of Health Screening 06/09/2024 Depression Screening 11/16/2024 COVID-19 Vaccine ( season) 2025 Influenza Vaccine (#1) 2025 Cholesterol Screening (Lipid [...] Most Recently Relevant to Health Maintenance Insurance [facility] Care Teams Tram Operator Relationship Specialty Start Date End Date Thea Alvarenga MD [address] [place] [phone] PCP - General 09/21/23
--- OUTSIDE RECORDS SUMMARY | 2025-07-25 09:08 | XMS_ITS | Encounter Summary ---
Author Organization [facility] Address [address] [place] [address] Phone Care Team Providers Care Leasing Sales Consultant Name Role Phone Andria Parks MD Primary Care Provider Encounter Details Date Type Department Care Team (Late st Contact Info) Description 10/16/2016 Documentation [facility] [place] [address] [place], [place] [phone] Family Medicine, Physician [address] [place], [place] [phone] Social History Tobacco Use Types Packs/Day Years [...] on filedocumented in this encounter Care Teams Leasing Sales Consultant Relationship Specialty Start Date End Date Andria Parks MD [address] [place] [address] [place] [address] PCP - General Pediatrics 07/27/23 09/15/23 documented as of this encounter
--- OUTSIDE RECORDS SUMMARY | 2025-07-25 09:08 | XMS_ITS | Encounter Summary ---
Author Organization [facility] Address [address] [place] [address] Phone Care Team Providers Care Security Systems Technician Name Role Phone Andria Parks MD Primary Care Provider [phone] Encounter Details Date Type Department Care Team (Late st Contact Info) Description 10/16/2016 Documentation [facility] Family Medicine [address] [place], [place] [phone] Family Medicine, Physician [address] [place], [place] [address] Social History Tobacco Use Types Packs/Day Years [...] on filedocumented in this encounter Care Teams Security Systems Technician Relationship Specialty Start Date End Date Andria Parks MD [address] [place] [address] [place] [address] PCP - General Pediatrics 07/27/23 09/15/23 documented as of this encounter
--- OUTSIDE RECORDS SUMMARY | 2025-07-25 09:08 | XMS_ITS | Encounter Summary ---
Author Organization [facility] Address [address] [place] [address] Phone Care Team Providers Care Lcac Radar Operator/Navigator Name Role Phone Andria Parks MD Primary Care Provider Encounter Details Date Type Department Care Team (Late st Contact Info) Description 07/02/2017 Conversion Encounter [facility] [address] [place] [address] Social History Tobacco Use Types Packs/Day Years [...] on filedocumented in this encounter Care Teams Lcac Radar Operator/Navigator Relationship Specialty Start Date End Date Andria Parks MD [address] [place] [address] PCP - General Pediatrics 07/27/23 09/15/23 documented as of this encounter
--- OUTSIDE RECORDS SUMMARY | 2025-07-25 09:08 | XMS_ITS | Encounter Summary ---
Author Organization [facility] Address [address] [place] [address] Phone Care Team Providers Care Protective Signal Operator Name Role Phone Andria Parks MD Primary Care Provider Encounter Details Date Type Department Care Team (Late st Contact Info) Description 04/18/2013 Documentation [facility] [place] Family Medicine [address] [place], [place] [phone] Family Medicine, Physician [address] [place], [place] [address] Social History Tobacco Use Types Packs/Day Years [...] on filedocumented in this encounter Care Teams Protective Signal Operator Relationship Specialty Start Date End Date Andria Parks MD [address] [place] [address] [place] [address] PCP - General Pediatrics 07/27/23 09/15/23 documented as of this encounter
--- OUTSIDE RECORDS SUMMARY | 2025-07-25 09:08 | XMS_ITS | Encounter Summary ---
Author Organization [facility] Address [address] [place] [address] Phone Care Team Providers Care Banbury Mill Operator Name Role Phone Andria Parks MD Primary Care Provider Encounter Details Date Type Department Care Team (Late st Contact Info) Description 10/16/2016 Documentation [facility] [place] [address] [place], [place] [phone] Family Medicine, Physician [address] [place], [place] [address] Social History Tobacco Use Types Packs/Day Years [...] on filedocumented in this encounter Care Teams Banbury Mill Operator Relationship Specialty Start Date End Date Andria Parks MD [address] [place] [address] [place] [address] PCP - General Pediatrics 07/27/23 09/15/23 documented as of this encounter
--- OUTSIDE RECORDS SUMMARY | 2025-07-25 09:09 | XMS_ITS | Clinical Summary ---
Author Organization [facility] Address [address] [place] [address] Phone Care Team Providers Care City Carrier Name Role Phone Unavailable Primary Care Provider [...] 1 07/28/20 23 Active norgestimate-ethiny l estradiol (Tjx-Hr-Uzfpso) 0.18/0.215/0.25 MG-25 MCG per tabletIndications:P COS (polycystic [...] does not remember her name (was in [place]) Seasonal allergic rhinitis 05/16/2020 Overview (05/16/2020): On [...] Followed by replacement of Dr. Howell in [place]; pt reports using all Cerave products and recently added OTC Adalapine 0.1% to face Encounters Date Type Department Care Team Description 05/24/2025 Telephone [place] [facility] - [address] [address] Hanh Cabrera [place] Medical Records [...] of Migraines, No family history of Sudden /[place] under age 55, No family history of [...] Date Last Done Comments Influenza Vaccines (#1) 2025 COVID-19 Vaccine ( - 2023-2 5 season) 2025 DTaP,Tdap,and Td Vaccines (8 - Td [...] Completed 07/28/2023, 05/16/2020 Procedures * Due to [facility] law, this organization might not be sharing sensitive test results. Procedure Name Priority Date/Time Associated Diagnosis Comments CHLAMYDIA AND GONORRHEA, AMPLIFIED Routine 07/28/2023 4:12 PM EDT Screening examination for bacterial and spirochetal disease from Last 3 Months or Most Recently Relevant to Health Maintenance Results * Due to [employer] law, this organization might not be sharing sensitive test results. * Chlamydia and Gonorrhea, Amplified (07/28/2023 4:12 PM EDT) Chlamydia Trachomatis, DNA Probe NEGATIVE (NEG) [facility] Comment: No Chlamydia Trachomatis RNA detected in this patient's sample (REFERENCE RANGE/NORMAL VALUE: NOT DETECTED) Note: This test uses floor associate- mediated amplification method to detect rRNA from C. Trachomatis URINE GC AMP PROBE NEGATIVE (NEG) [facility] Comment: No Neisseria Gonorrhoeae RNA detected in this patient's sample (REFERENCE RANGE/NORMAL VALUE: NOT DETECTED) NOTE: This test uses floor associate-mediated amplification method to detect rRNA from N.Gonorrhoeae. [...] risk of sexual abuse. Consult the [facility] if needed. Contact phone number . Therapeutic failure or success cannot be determined with the Aptima Combo2 assay since nucleic acid may persist following appropriate antimicrobial therapy. The Centers for Disease Control and Prevention (CDC) recommends confirmatory retesting using culture or a different nucleic acid amplification test when positive results occur, if indicated. Testing performed or reported by [facility], a Service of [facility], [address] [place] [address] Rogers Reyes MD, Console Manager [facility]# [id number] Urine (Urine) 07/28/2023 4:1 2 PM EDT 07/29/2023 12:10 AM EDT us Andria Parks MD LAB MICROBIOLOGY - GENERAL ORDERABLES Final Result [facility] from Last 3 Months or Most Recently Relevant to Health Maintenance Insurance [facility] [place] [address] [facility] H[facility]
== END 2025-07-25 08:53 | disposition home or self-care (01) ==
LOC: HO.ENCR 08:16
PROVIDERS: Visit Provider Student in an Organized Health Care Education/Training Program
DX: E28.2 Polycystic ovarian syndrome (principal); E66.9 Obesity, unspecified
CPT/HCPCS: 99204

== ENCOUNTER 2025-09-14 09:43 | Outpatient (AMB) | payer BC, SELFPAY ==
[2025-09-14 09:56] VITALS: BMI 33.9
--- NOTE | 2025-09-14 09:56 | MHC.AMNUTRGE ---
VS Expanded 09/14/25 09:56 09/21/25 10:26 Height 5 ft 1 in 5 ft 1 in Weight 179 lb 3.773 oz 179 lb BMI 33.9 33.8 Intake Visit Reasons: PCOS/other specified abnormal findings of blood Allergies chickpea Allergy (Mild, Verified 09/22/25 11:14) Difficulty Breathing kiwi Allergy (Mild, Verified 09/22/25 11:14) Swelling nectarine Adverse Reaction (Severe, Verified 09/22/25 11:14) Anaphylaxis Nutrition Presentation Details: Pt presents for MNT for PCOS, obesity Patient reports typically having 3 meals a day working on balancing meals and choosing complex carbohydrates B:chicken sausage and eggs ro chive cottage cheese , coffee creamer oatmeal flavore d L: rice.veg chicken, water, D: same as lunch food frequency fruits: 1-2/d ve/day dairy : 1-2/d fish : 0-2/m beverages: mainly water 32 oz/d etoh/smoking --- physical activyt: ADL BS Monitoring Most Recent Diabetes Results: Cholesterol, (<200) 150 mg/dL 07/11/25 HDL Cholesterol, (>40) 69 mg/dL 07/11/25 Triglycerides, (<150) 40 mg/dL 07/11/25 Creatinine, (0.5-1.4) 0.61 mg/dL 09/22/25 BUN, (9-16) 12 mg/dL 09/22/25 Sodium, (135-145) 140 mmol/L 09/22/25 Potassium, (3.3-5.1) 4.0 mmol/L 09/22/25 Chloride, (96-108) 107 mmol/L 09/22/25 Carbon Dioxide, (22-29) 27 mmol/L 09/22/25 Calcium, (8.4-10.2) 9.1 mg/dL 09/22/25 AST, (5-31) 26 U/L 09/22/25 ALT, (0-31) 29 U/L 09/22/25 Total Protein, (6.5-8.0) 5.9 g/dL L 07/11/25 Albumin, (3.5-5.0) 3.8 g/dL 07/11/25 ITL-Qdlymbi-Hn.Jeor Equation Height: 5 ft 1 in Weight: 179 lb Resting Metabolic Rate: 1505.33 Calculated Activity Level: Sedentary Calories Needed to Maintain Weight: 1806.40 Diagnosis Nutrition problem #1: excessive energy intake As related to (etiology) #1: lack of nutrit education As evidenced by (sign/symptom) #1: knowledge deficit of diet [facility] Medical History PCOS (polycystic ovarian syndrome) Eczema Asthma Surgical History No pertinent past surgical history Family History Mother No pertinent past medical history Father No pertinent past medical history Social History Household Members: Family Household Members Other:: Mother Housing: House Alcohol intake: current Alcohol intake frequency: holidays/special occasions only Patient Tobacco Use Status: Never used Tobacco e-Cigarette/Vaping Use: Currently Using service: No Current occupational status: employed and student Current occupation: [employer]; [employer]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 Cognitive needs: No Hearing needs: No Vision needs: No Female Reproductive History Menstrual Age of Menarche: 18 Assessment & Plan Assessment & Plan (1) Obesity (BMI 30-39.9): Code(s): E66.9 - Obesity, unspecified Category: Medical Plan: current wt: 81 kg ( 10/10 ) est kcal needs as per MSJ: 1800 est protein needs as per 1 g/kg BW: 80 est fluid needs as per 30 ml/kg BW: 2400 Recommended fiber > 12 g /day and gradually increase up to 25-28 g /day or as tolerated Nutrition topics discussed : Reviewed (R), Pt verbalized understanding (V) , not applicable (N/A) R, V : Healthy Plate Method Concept: R, V, : Carbohydrates: food sources of carbohydrates, relationship of carbohydrates to blood glucose, fatty liver GI health. Recommended total amount of carbohydrates per meals and snack. Differences between simple carbohydrates and complex carbohydrates R, : Lean protein foods including vegan , vegetarian sources of protein. Benefits of protein (including but not limited to healing, nutritional value , benefits in weight loss, glucose control R, V, N/A: Fats : Source of fats, benefits of fats. Difference between saturated and unsaturated fats. Saturated fats and its contribution to inflammation R, V, N/A: Fiber: food sources and role of fiber in the diet (including but not limited to its role as a prebiotic, benefits in constipation, role in IBS , role in glucose control and cholesterol level) R,: Hydration: role of hydration and prevention of dehydration or over hydration. Foods and water content. R, V, N/A: Vitamins and Minerals in foods and supplements R, V, N/A: Interpreting food labels, including serving size, macronutrients, vitamins, minerals, allergens, ingredient list , % daily value Patient Instructions: Work on reducing total carb at lunch/dinner to less than 60 g following healthy platemethod Keep hydrated by choosing water, frut/herb flavored infused water practice mindful eating Coding Level of Care Code Nutr Indiv Intake (10956) Diagnoses Obesity (BMI 30-39.9) E66.9 Time Spent (min) 30
--- OUTSIDE RECORDS SUMMARY | 2025-09-14 11:21 | XMS_ITS | Encounter Summary ---
Author Organization [facility] Address [address] [place] [address] Phone Care Team Providers Care Dairy Equipment Repairer Name Role Phone Andria Parks MD Primary Care Provider Encounter Details Date Type Department Care Team (Late st Contact Info) Description 04/18/2013 Documentation [facility] [place] [address] [place], [place] [phone] Family Medicine, Physician [address] [place], [place] [address] Social History Tobacco Use Types Packs/Day Years [...] on filedocumented in this encounter Care Teams Dairy Equipment Repairer Relationship Specialty Start Date End Date Andria Parks MD [address] [place] [address] [place] [address] PCP - General Pediatrics 07/27/23 09/15/23 documented as of this encounter
--- OUTSIDE RECORDS SUMMARY | 2025-09-14 11:21 | XMS_ITS | Encounter Summary ---
Author Organization [facility] Address [address] [place] [address] Phone Care Team Providers Care Pharmaceutical Officer Name Role Phone Andria Parks MD Primary Care Provider Encounter Details Date Type Department Care Team (Late st Contact Info) Description 10/16/2016 Documentation [facility] [place] [address] [place], [place] [phone] Family Medicine, Physician [address] [place], [place] [address] Social History Tobacco Use Types Packs/Day Years [...] on filedocumented in this encounter Care Teams Pharmaceutical Officer Relationship Specialty Start Date End Date Andria Parks MD [address] [place] [address] [place] [address] PCP - General Pediatrics 07/27/23 09/15/23 documented as of this encounter
--- OUTSIDE RECORDS SUMMARY | 2025-09-14 11:21 | XMS_ITS | Encounter Summary ---
Author Organization [facility] Address [address] [place] [address] Phone Care Team Providers Care Singer Back Tender Name Role Phone Andria Parks MD Primary Care Provider Encounter Details Date Type Department Care Team (Late st Contact Info) Description 10/16/2016 Documentation [facility] [place] [address] [place], [place] [phone] Family Medicine, Physician [address] [place], [place] [address] Social History Tobacco Use Types Packs/Day Years [...] on filedocumented in this encounter Care Teams Singer Back Tender Relationship Specialty Start Date End Date Andria Parks MD [address] [place] [address] [place] [address] PCP - General Pediatrics 07/27/23 09/15/23 documented as of this encounter
--- OUTSIDE RECORDS SUMMARY | 2025-09-14 11:21 | XMS_ITS | Encounter Summary ---
Author Organization [facility] Address [address] [place] [address] Phone Care Team Providers Care Radiophone Operator Name Role Phone Andria Parks MD Primary Care Provider Encounter Details Date Type Department Care Team (Late st Contact Info) Description 07/02/2017 Conversion Encounter [facility] [address] [place] [address] Social History Tobacco Use Types Packs/Day Years [...] on filedocumented in this encounter Care Teams Radiophone Operator Relationship Specialty Start Date End Date Andria Parks MD [address] [place] [address] PCP - General Pediatrics 07/27/23 09/15/23 documented as of this encounter
--- OUTSIDE RECORDS SUMMARY | 2025-09-14 11:21 | XMS_ITS | Encounter Summary ---
Author Organization [facility] Address [address] [place] [address] Phone Care Team Providers Care Cushion Padder Name Role Phone Andria Parks MD Primary Care Provider Encounter Details Date Type Department Care Team (Late st Contact Info) Description 10/16/2016 Documentation [facility] [place] [address] [place], [place] [phone] Family Medicine, Physician [address] [place], [place] [phone] Social History Tobacco Use Types Packs/Day Years [...] on filedocumented in this encounter Care Teams Cushion Padder Relationship Specialty Start Date End Date Andria Parks MD [address] [place] [address] [place] [address] PCP - General Pediatrics 07/27/23 09/15/23 documented as of this encounter
--- OUTSIDE RECORDS SUMMARY | 2025-09-14 11:21 | XMS_ITS | Encounter Summary ---
Author Organization [facility] Address [address] [place] [address] Phone Care Team Providers Care Human Relations Teacher Name Role Phone Andria Parks MD Primary Care Provider Encounter Details Date Type Department Care Team (Late st Contact Info) Description 01/07/2017 Documentation [facility] [place] [address] [place], [place] [phone] Family Medicine, Physician [address] [place], [place] [address] Social History Tobacco Use Types Packs/Day Years [...] on filedocumented in this encounter Care Teams Human Relations Teacher Relationship Specialty Start Date End Date Andria Parks MD [address] [place] [address] [place] [address] PCP - General Pediatrics 07/27/23 09/15/23 documented as of this encounter
--- OUTSIDE RECORDS SUMMARY | 2025-09-14 11:21 | XMS_ITS | Clinical Summary ---
Author Organization [address] [place] [address] [place] [phone] Phone Care Team Providers Care Hydrotel Operator Name Role Phone Thea Alvarenga MD Primary Care Provider [phone] Allergies Active Allergy Reactions Criticality Noted Date [...] 6.7 g 11 5 12/05/19 26 Active Rnn-Zo-Foijkb 0.18/0.215/0.25 mg-0.025 mg per tablet Take 1 tablet by mouth 1 (one) time each day. 28 tablet 5 5 Active Active Problems Problem Noted Date Diagnosed Date Asthma 01/14/2024 Eczema 01/14/2024 Obesity (BMI 30-39.9) 12/25/2023 Immunizations Immunization Administration Dates Next Due Tdap Tetanus diptheria [...] to 49 Years) (1 of 1 - PPSV23, PCV20, or PCV21) 2007 06/05/2003, 06/20/2002, 04/15/2002, Additional history exists Cervical Cancer Screening: Pap Smear 2022 HIV Screening 06/09/2024 Social Influencers of Health Screening 06/09/2024 Depression Screening 11/16/2024 COVID-19 Vaccine ( season) 2025 Influenza Vaccine (#1) 2025 Cholesterol Screening (Lipid Panel) 12/25/2028 12/25/2023 DTaP,Tdap,and Td Vaccines (9 - Td or Tdap) 12/23/2033 12/23/2023, 07/28/2023, 03/15/2013, Additional history exists RSV Immunization Adult Patients (1 - 1-dose 75+ series) 2076 Hepatitis B Vaccines Completed 09/02/2002, 2001, 2001 [...] Maintenance Results * Hepatitis C Screening (12/25/2023) Pathologist [facility] Hepatitis C Screening Abstracted Historical Provider HEALTH MAINTENANCE Final Result * Lipid panel (12/25/2023) Pathologist [facility] LDL/HDL Ratio 2 0 - 4 Triglycerides 38 0 - 150 mg/dL Cholesterol 158 0 - 200 mg/dL HDL 88 >=40 mg/dL LDL Cholesterol 63 0 - 100 mg/dL Blood Venous blood specimen / Unknown Historical Provider LAB BLOOD ORDERABLES Sandrine l Result from Last 3 Months or Most Recently Relevant to Health Maintenance Insurance [place] [phone] [facility] Care Teams Hydrotel Operator Relationship Specialty Start Date End Date Thea Alvarenga MD [address] [place] [address] [place] [phone] PCP - General 09/21/23
--- OUTSIDE RECORDS SUMMARY | 2025-09-14 11:21 | XMS_ITS | Encounter Summary ---
Author Organization [facility] Address [address] [place] [address] Phone Care Team Providers Care Painter Chassis Name Role Phone Andria Parks MD Primary Care Provider [phone] Reason for Visit * Reason Comments Med Refill Encounter Details Date Type Department Care Team (Late st Contact Info) Description 06/05/2022 Refill [facility] [place] [address] [place] [address] Andria Parks MD [address] [place] [address] PCOS (polycystic ovarian syndrome) Social History Tobacco [...] requesting BC refill. Pt transferred to front clerk to book PE. * Telephone Encounter - Cheri Xiao LPN - 06/05/2022 8:50 AM EDT TEEN RELEASE Faxed refill request / last PE 05/20/21 no pending appts Call to pt [phone] not receiving incoming calls / call to [phone] message left to call theoffice documented in this encounter Plan of Treatment Not on file documented as of this encounter Visit Diagnoses Diagnosis PCOS (polycystic ovarian syndrome) Polycystic ovaries documented in this encounter Care Teams Painter Chassis Relationship Specialty Start Date End Date Andria Parks MD [address] [facility] [place] [address] PCP - General Pediatrics 07/27/23 09/15/23 documented as of this encounter
--- OUTSIDE RECORDS SUMMARY | 2025-09-14 11:21 | XMS_ITS | Encounter Summary ---
Author Organization [facility] Address [address] [place] [address] Phone Care Team Providers Care Fabric Worker Leader Name Role Phone Andria Parks MD Primary Care Provider [phone] Reason for Visit * Reason Comments Med Refill Encounter Details Date Type Department Care Team (Late st Contact Info) Description 10/24/2019 Refill [facility] [place] [address] [place] [address] Andria Parks MD [address] [place] [address] PCOS (polycystic ovarian syndrome) Social History Tobacco [...] ovaries documented in this encounter Care Teams Fabric Worker Leader Relationship Specialty Start Date End Date Andria Parks MD [address] [place] [address] [place] [address] PCP - General Pediatrics 07/27/23 09/15/23 documented as of this encounter
--- OUTSIDE RECORDS SUMMARY | 2025-09-14 11:22 | XMS_ITS | Encounter Summary ---
Author Organization [facility] Address [address] [place] [address] Phone Care Team Providers Care Cook Restaurant Name Role Phone Andria Parks MD Primary Care Provider Encounter Details Date Type Department Care Team (Late st Contact Info) Description 10/16/2016 Documentation [facility] [place] [address] [place], [place] [phone] Family Medicine, Physician [address] [place], [place] [phone] Social History Tobacco Use Types Packs/Day Years [...] on filedocumented in this encounter Care Teams Cook Restaurant Relationship Specialty Start Date End Date Andria Parks MD [address] [place] [address] [place] [address] PCP - General Pediatrics 07/27/23 09/15/23 documented as of this encounter
--- OUTSIDE RECORDS SUMMARY | 2025-09-14 11:22 | XMS_ITS | Encounter Summary ---
Author Organization [facility] Address [address] [place] [address] Phone Care Team Providers Care Medical Assistant Per Diem Name Role Phone Andria Parks MD Primary Care Provider Reason for Visit * Reason Comments Med Refill Encounter Details Date Type Department Care Team (Late st Contact Info) Description 02/13/2020 Refill [facility] [place] [address] [place] [address] Andria Parks MD [address] [place] [address] PCOS (polycystic ovarian syndrome) Social History Tobacco [...] documented in this encounter Care Teams Medical Assistant Per Diem Relationship Specialty Start Date End Date Andria Parks MD [address] [place] [address] [place] [address] PCP - General Pediatrics 07/27/23 09/15/23 documented as of this encounter
--- OUTSIDE RECORDS SUMMARY | 2025-09-14 11:22 | XMS_ITS | Clinical Summary ---
Author Organization [facility] Address [address] [place] [address] Phone Care Team Providers Care City Tax Auditor Name Role Phone Unavailable Primary Care Provider [...] 1 07/28/20 23 Active norgestimate-ethiny l estradiol (Qyr-Hu-Keodci) 0.18/0.215/0.25 MG-25 MCG per tabletIndications:P COS (polycystic [...] does not remember her name (was in [place]) Seasonal allergic rhinitis 05/16/2020 Overview (05/16/2020): On [...] Followed by replacement of Dr. Howell in [place]; pt reports using all Cerave products and [...] of Migraines, No family history of Sudden /[place] under age 55, No family history of [...] 07/28/2023 Missing School or Work Answer Date Vladez rded Did you or your child miss [...] Comments Influenza Vaccines (#1) 2025 COVID-19 Vaccine (1 - 2024-2 6 season) 2025 DTaP,Tdap,and Td Vaccines (8 - [...] Completed 07/28/2023, 05/16/2020 Procedures * Due to [place] [employer] law, this organization might not be sharing sensitive test results. Procedure Name Priority Date/Time Associated Diagnosis Comments CHLAMYDIA AND GONORRHEA, AMPLIFIED Routine 07/28/2023 4:12 PM EDT Screening examination for bacterial and spirochetal disease from Last 3 Months or Most Recently Relevant to Health Maintenance Results * Due to [place] [employer] [facility] law, this organization might not be sharing sensitive test results. * Chlamydia and Gonorrhea, Amplified (07/28/2023 4:12 PM EDT) Chlamydia Trachomatis, DNA Probe NEGATIVE (NEG) [facility] Comment: No Chlamydia Trachomatis RNA detected in this patient's sample (REFERENCE RANGE/NORMAL VALUE: NOT DETECTED) Note: This test uses well driller- mediated amplification method to detect rRNA from C. Trachomatis URINE GC AMP PROBE NEGATIVE (NEG) [facility] Comment: No Neisseria Gonorrhoeae RNA detected in this patient's sample (REFERENCE RANGE/NORMAL VALUE: NOT DETECTED) NOTE: This test uses well driller-mediated amplification method to detect rRNA from N.Gonorrhoeae. [...] without risk of sexual abuse. Consult the [facility] if needed. Contact phone number . Therapeutic failure or success cannot be determined with the Aptima Combo2 assay since nucleic acid may persist following appropriate antimicrobial therapy. The Centers for Disease Control and Prevention (CDC) recommends confirmatory retesting using culture or a different nucleic acid amplification test when positive results occur, if indicated. Testing performed or reported by [facility], a Service of [facility], [address] [place] [address] Rogers Reyes MD, Counselling Psychologist [facility]# [id number] Urine (Urine) 07/28/2023 4:1 2 PM EDT 07/29/2023 12:10 AM EDT Andria Parks MD LAB MICROBIOLOGY - GENERAL ORDERABLES Final Result Performing Organization Address City/State/[facility] Co de Phone Number [facility] from Last 3 Months or Most Recently Relevant to Health [place] [address] [facility] [address] [facility]
[2025-09-25 12:06] VITALS: BMI 33.8
== END 2025-09-14 10:20 | disposition home or self-care (01) ==
LOC: HO.ENCR 09:43
PROVIDERS: Visit Provider Dietitian, Registered
DX: E66.9 Obesity, unspecified (principal)

== ENCOUNTER → 2025-09-14 09:43 | Outpatient (BNVA) | payer BC, SELFPAY | PROVIDERS: Visit Provider Dietitian, Registered | DX: E66.9 Obesity, unspecified (principal); Z68.33 Body mass index [BMI] 33.0-33.9, adult | CPT/HCPCS: 97802 ==

== ENCOUNTER 2025-09-22 09:07 | Outpatient (REF) | payer BC, SELFPAY ==
[2025-09-22 12:05] LABS: MANUAL DIFF FLAG NO
[2025-09-22 13:32] LABS: Hematocrit 40.4 % (37.0-47.0); Hemoglobin 13.5 g/dl (12.0-16.0); Imm Gran Abs Auto 0.01 X10*3/uL (0.00-0.03); Imm Gran Pct Auto 0.2 % (0.0-0.4); Lymphocytes Absolute Auto 2.9 X10*3/uL (1.2-4.9); Mean Corpuscular HGB Conc 33.4 g/dl (31.0-35.0); Mean Corpuscular Hemoglobin 29.4 pg (27.0-33.0); Mean Corpuscular Volume 88.0 fL (80.0-98.0); NRBC Abs Auto 0.000 X10*3/uL (0.0-0.012); NRBC Pct Auto 0.0 /100WBC (0.0-0.2); Platelet Count 233 X10*3/uL (160-400); Red Blood Count 4.59 X10*6/uL (4.20-5.50); White Blood Count 6.4 X10*3/uL (4.8-10.8)
[2025-09-22 14:07] LABS: Alanine Aminotransferase 29 U/L (0-31); Anion Gap 10 (12-20); Aspartate Amino Transferase 26 U/L (5-31); Blood Urea Nitrogen 12 mg/dL (9-16); Calcium 9.1 mg/dL (8.4-10.2); Carbon Dioxide 27 mmol/L (22-29); Chloride 107 mmol/L (96-108); Estimated Glomerular Filt Rate > 60; Potassium 4.0 mmol/L (3.3-5.1); Sodium 140 mmol/L (135-145)
== END 2025-09-22 09:08 | disposition home or self-care (01) ==
LOC: HO.LAB 09:07
PROVIDERS: Absent Provider Student in an Organized Health Care Education/Training Program; Visit Provider Internal Medicine Cardiovascular Disease
DX: Z13.0 Encounter for screening for diseases of the blood and blood-forming organs and certain disorders involving the immune mechanism (principal); E28.2 Polycystic ovarian syndrome; J45.20 Mild intermittent asthma, uncomplicated; R55 Syncope and collapse; E66.9 Obesity, unspecified; L30.9 Dermatitis, unspecified; Z68.34 Body mass index [BMI] 34.0-34.9, adult; Z79.899 Other long term (current) drug therapy
CPT/HCPCS: 36415; 80048; 84450; 84460; 85025; 93005; 96127

== ENCOUNTER 2025-09-22 09:07 | Outpatient (AMB) | payer BC, SELFPAY ==
[2025-09-22 09:12] VITALS: BP 115/59; PULSE 89; BMI 34.6
--- NOTE | 2025-09-22 09:12 | A.OFFVIS_ITS ---
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/Hurteau/Syncope and Collapse Intake Note: Grape Cutter/Hurteu/ Syncope and collaspse Dinkey Locomotive Operator Required: No Accompanied by: Self / Same As Patient Allergies chickpea Allergy (Mild, Verified 09/22/25 11:14) Difficulty Breathing kiwi Allergy (Mild, Verified 09/22/25 11:14) Swelling nectarine Adverse Reaction (Severe, Verified 09/22/25 11:14) Anaphylaxis Medication List - Last Reconciled 09/22/25 by Zachary Cho MD albuterol sulfate 90 mcg/actuation inhalation dupilumab (Dupixent) 300 mg subcut Q2W epinephrine (EpiPen) 0.3 mg (0.3 mL) IM Q10M PRN hydroxyzine HCl 25 mg PO BEDTIME norgestimate-ethinyl estradiol 0.18/0.215/0.25 mg-0.025 mg (Zkp-Wp-Qgtsec) 1 tab PO DAILY spironolactone 25 mg PO DAILY HPI Comments Details: Thank you for referring Kera in cardiology consultation today for what appears to be syncopal/near syncopal events. Patient is a 24 year female who said has been exercising religiously now for few years but recently more intensively to try to participate in more lifestyle modification weight loss. Patient says that whenever she is running, initially started when she was running outside and pushing the envelope she will feel lightheaded and feel like she would faint. She then moved her exercise and running indoors into the gym and initially she had not notice any symptoms. However she then started running extensively and then 1 day she after exercise went to the car was not feeling well and felt like she was lightheaded. She then sat in the car and called 911 because she is not feeling well. Apparently the ambulance came and took her to the hospital here and workup was negative. Symptoms starts with she feeling dizzy and feeling very short of breath and with some abdominal cramping. She has not noticed any fast heart rate or chest pain. She he is concerned about the symptoms. She says with other aerobic exercise including stair climbing for an hour she does not get similar symptoms. She denies any orthostatic lightheadedness. She says she drinks enough amount of water. She denies any family history for premature coronary artery disease or sudden cardiac that. She denies any smoking, alcohol, excessive caffeine or qbbo-ycx-rcdlomv medication or substance abuse. 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; [employer]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 Cognitive needs: No Hearing needs: No Vision needs: No Female Reproductive History Menstrual Age of Menarche: 18 Review of Systems Const Denies chills, Denies daytime sleepiness, Denies fatigue, Denies fever(s), Denies poor appetite, Denies snoring, Denies stops breathing during sleep, Denies weight gain and Denies weight loss Eyes Denies loss of vision Card Denies chest pain, Denies claudication, Denies leg edema, Denies lightheadedness, Denies palpitations, Denies dyspnea, Denies dyspnea on exertion and Denies orthopnea Resp Denies cough, Denies excessive phlegm production, Denies pain with cough, Denies dyspnea, Denies dyspnea on exertion, Denies snoring, Denies wheezing and Denies other GI Denies abdominal pain, Denies hematochezia, Denies change in bowel habits, Denies nausea and Denies vomiting Denies urinary frequency and Denies dysuria Musc Denies arthralgias and Denies muscle weakness Skin/Breast Denies nail changes and Denies rash Neuro Denies loss of vision and Denies memory loss Psych Denies depression, Reports difficulty concentrating, Denies auditory hallucinations and Denies memory loss Endo Denies fatigue and Denies palpitations Puma/Lymph Denies easy bruising Aller/Immun Denies wheezing Physical Exam Vital Signs: Last Vital Signs Pulse 81 09/22/25 09:32 BP 104/56 L 09/22/25 09:28 BMI result Body Mass Index 34.6 Const General: cooperative, comfortable, no acute distress, well developed, alert, awake and Physically active Nutritional Appearance: well nourished and overweight Orientation/consciousness: patient oriented x3 Limitations: no limitations HEENT Head: Yes normocephalic and Yes atraumatic Neck Neck: Yes trachea midline, Yes supple and Yes no JVD Resp Effort & Inspection: normal respiratory effort Auscultation: clear to auscultation bilaterally Cardio Jugular venous distension: no JVD Rate: regular rate Rhythm: regular rhythm Heart sounds: S1 normal heart sound present, S2 normal heart sound present, no click, no gallops, no murmurs and no rubs GI Auscultation: normal bowel sounds Skin General skin exam: no rashes or lesions noted Neuro General: patient oriented x3 and no focal motor deficits Extrem General: Yes no clubbing, cyanosis or edema Psych Appearance: grossly normal Office Procedures EKG Details: EKG shows normal sinus rhythm with sinus arrhythmias without any evidence of pre-excitation or QT prolongation [id number], Complete Assessment & Plan Assessment & Plan (1) Syncope: Code(s): R55 - Syncope and collapse Category: Medical Plan: Syncope in this young woman without any obvious risk factors of family history of sudden cardiac that, mostly only after running and with not other aerobic activities. This is unusual. Possibilities include exercise-induced arrhythmias which could include RVOT VT, SVT or CPVT. Need to perform treadmill exercise stress test at high workload to assess for any cardiac induced arrhythmias. Also suggest an echocardiogram to rule out any structural abnormality such as hypertrophic cardiomyopathy. Also pulmonary hypertension needs to be ruled out. Will suggest an echocardiogram for that. Also suggest a 14 day Holter monitor and advised her to pursue her activity level as outpatient to see if we notice any other arrhythmias in the setting of her own exercise activity. Meanwhile I have advised her to avoid any stimulants. Advised to maintain adequate hydration. She is doing well. If these tests are within normal limits will suggest a head-up tilt-table test to rule out any dysautonomia. Will follow up in the clinic in 6 weeks time, sooner PRN. Thank you for allowing me to partake in her care Orders: Orders CA echo transthoracic complete Today R55 - Syncope and collapse ECG 14 day holter monitor Today R55 - Syncope and collapse CA stress test Today R55 - Syncope and collapse Coding Level of Care Code New Pt Level 4 (33134) Complex EM visit Add On G2211 Diagnoses Syncope R55 CPT Codes EKG - CPT: 73053-[id number], Complete ([id number])
[2025-09-22 09:26] VITALS: BP 113/60; PULSE 83
[2025-09-22 09:28] VITALS: BP 104/56; PULSE 79
[2025-09-22 09:32] VITALS: PULSE 81
--- OUTSIDE RECORDS SUMMARY | 2025-09-22 10:10 | XMS_ITS | Encounter Summary ---
Author Organization [facility] Address [address] [place] [address] Phone Care Team Providers Care Public Address Servicer Name Role Phone Andria Parks MD Primary Care Provider Encounter Details Date Type Department Care Team (Late st Contact Info) Description 10/16/2016 Documentation [facility] [place] Family Medicine [address] [place], [place] [phone] Family Medicine, Physician [address] [place], [place] [phone] Social History Tobacco Use Types Packs/Day Years [...] on filedocumented in this encounter Care Teams Public Address Servicer Relationship Specialty Start Date End Date Andria Parks MD [address] [place] [address] [place] [address] PCP - General Pediatrics 07/27/23 09/15/23 documented as of this encounter
--- OUTSIDE RECORDS SUMMARY | 2025-09-22 10:10 | XMS_ITS | Encounter Summary ---
Author Organization [facility] Address [address] [place] [address] Phone Care Team Providers Care Mechanical Sound Technician Name Role Phone Andria Parks MD Primary Care Provider [phone] Encounter Details Date Type Department Care Team (Late st Contact Info) Description 01/07/2017 Documentation [facility] [place] Family Medicine [address] [place], [place] [phone] Family Medicine, Physician [address] [place], [place] 9[address] Social History Tobacco Use Types Packs/Day Years [...] on filedocumented in this encounter Care Teams Mechanical Sound Technician Relationship Specialty Start Date End Date Andria Parks MD [address] [place] [address] [place] [address] PCP - General Pediatrics 07/27/23 09/15/23 documented as of this encounter
--- OUTSIDE RECORDS SUMMARY | 2025-09-22 10:10 | XMS_ITS | Encounter Summary ---
Author Organization [facility] Address [address] [place] [address] Phone Care Team Providers Care Cinder Worker Name Role Phone Andria Parks MD Primary Care Provider Encounter Details Date Type Department Care Team (Late st Contact Info) Description 07/02/2017 Conversion Encounter [facility] [address] [place] [address] Social History Tobacco Use Types Packs/Day Years [...] on filedocumented in this encounter Care Teams Cinder Worker Relationship Specialty Start Date End Date Andria Parks MD [address] [place] [address] PCP - General Pediatrics 07/27/23 09/15/23 documented as of this encounter
--- OUTSIDE RECORDS SUMMARY | 2025-09-22 10:10 | XMS_ITS | Clinical Summary ---
Author Organization [facility] Address [address] [place] [address] Phone Care Team Providers Care Safety Risk Lead Name Role Phone Unavailable Primary Care Provider [...] 1 07/28/20 23 Active norgestimate-ethiny l estradiol (Nob-Ic-Tscdcf) 0.18/0.215/0.25 MG-25 MCG per tabletIndications:P COS (polycystic [...] does not remember her name (was in [place]) Seasonal allergic rhinitis 05/16/2020 Overview (05/16/2020): On [...] Followed by replacement of Dr. Howell in [place]; pt reports using all Cerave products and [...] of Migraines, No family history of Sudden /ND under age 55, No family history of [...] Completed 07/28/2023, 05/16/2020 Procedures * Due to [place] InCast law, this organization might not be sharing sensitive test results. Procedure Name Priority Date/Time Associated Diagnosis Comments CHLAMYDIA AND GONORRHEA, AMPLIFIED Routine 07/28/2023 4:12 PM EDT Screening examination for bacterial and spirochetal disease from Last 3 Months or Most Recently Relevant to Health Maintenance Results * Due to [place] In[employer] law, this organization might not be sharing sensitive test results. * Chlamydia and Gonorrhea, Amplified (07/28/2023 4:12 PM EDT) Chlamydia Trachomatis, DNA Probe NEGATIVE (NEG) [facility] Comment: No Chlamydia Trachomatis RNA detected in this patient's sample (REFERENCE RANGE/NORMAL VALUE: NOT DETECTED) Note: This test uses game agent- mediated amplification method to detect rRNA from C. Trachomatis URINE GC AMP PROBE NEGATIVE (NEG) [facility] Comment: No Neisseria Gonorrhoeae RNA detected in this patient's sample (REFERENCE RANGE/NORMAL VALUE: NOT DETECTED) NOTE: This test uses game agent-mediated amplification method to detect rRNA from N.Gonorrhoeae. [...] without risk of sexual abuse. Consult the [facility] if needed. Contact phone number . Therapeutic failure or success cannot be determined with the Aptima Combo2 assay since nucleic acid may persist following appropriate antimicrobial therapy. The Centers for Disease Control and Prevention (CDC) recommends confirmatory retesting using culture or a different nucleic acid amplification test when positive results occur, if indicated. Testing performed or reported by [facility], a Service of [facility], [address] [place] [address] Rogers Reyes MD, Countersinker [facility]# [id number] Urine (Urine) 07/28/2023 4:1 2 PM EDT 07/29/2023 12:10 AM EDT Andria Parks MD LAB MICROBIOLOGY - GENERAL ORDERABLES Final Result Performing Organization Address City/State/[facility] Co de Phone Number [facility] from Last 3 Months or Most Recently Relevant to [place] [id number] [facility] [place] [address] [facility]
--- OUTSIDE RECORDS SUMMARY | 2025-09-22 10:10 | XMS_ITS | Clinical Summary ---
Author Organization [facility] Address [address] [place] [phone] Phone Care Team Providers Care Secondary Market Manager Name Role Phone Thea Alvarenga MD Primary Care Provider [phone] Allergies Active Allergy Reactions Criticality Noted Date Comments Kiwi (Actinidia Chinensis) 4 Medications cetirizine (ZyrTEC) 10 mg tablet Take 1 Tablet by mouth 2 times daily. 03/22/20 24 Active colloidal oatmeaL (Eucerin Eczema Relief) 2 % cleanser Apply 1 g topically daily. 01/14/20 24 Active hydrocortisone 2.5 % cream Apply 2 times/day for 3 weeks 12/25/19 24 Active montelukast (SINGULAIR) 10 mg tablet Take 1 Tablet by mouth at bedtime for 360 days. 07/04/20 24 Active albuterol HFA (PROAIR HFA ; PROVENTIL HFA ; VENTOLIN HFA) 90 mcg/actuation inhaler Inhale 2 puffs by mouth every 4 (four) hours if needed for wheezing or shortness of breath. 6.7 g 11 12/05/19 25 026 Active Oun-Gp-Akgaqf 0.18/0.215/0.2 5 mg-0.025 mg per tablet TAKE 1 TABLET BY MOUTH 1 TIME EACH DAY. 84 tablet 1 09/21/20 25 Active Qyy-Fb-Kzjlwm 0.18/0.215/0.2 5 mg-0.025 mg per tablet Take 1 tablet by mouth 1 (one) time each day. 28 tablet 5 04/05/20 25 025 Discontinued Active Problems Problem Noted Date Diagnosed Date [...] Most Recently Relevant to [place] [id number] [facility] Care Teams Secondary Market Manager Relationship Specialty Start Date End Date Thea Alvarenga MD [address] [place] [phone] PCP - General 09/21/23
--- OUTSIDE RECORDS SUMMARY | 2025-09-22 10:10 | XMS_ITS | Encounter Summary ---
Author Organization [facility] Address [address] [place] [address] Phone Care Team Providers Care Landscape Designer Name Role Phone Andria Parks MD Primary Care Provider Encounter Details Date Type Department Care Team (Late st Contact Info) Description 10/16/2016 Documentation [facility] [place] [address] [place], [place] [phone] Family Medicine, Physician [address] [place], [place] [address] Social History Tobacco Use Types Packs/Day Years [...] on filedocumented in this encounter Care Teams Landscape Designer Relationship Specialty Start Date End Date Andria Parks MD [address] [place] [address] [place] [address] PCP - General Pediatrics 07/27/23 09/15/23 documented as of this encounter
--- OUTSIDE RECORDS SUMMARY | 2025-09-22 10:10 | XMS_ITS | Encounter Summary ---
Author Organization [facility] Address [address] [place] [address] Phone Care Team Providers Care Merchandising Consultant Name Role Phone Andria Parks MD Primary Care Provider [phone] Encounter Details Date Type Department Care Team (Late st Contact Info) Description 10/16/2016 Documentation [facility] Family Medicine [address] [place], [place] [phone] Family Medicine, Physician [address] [place], [place] [address] Social History Tobacco Use Types Packs/Day Years [...] on filedocumented in this encounter Care Teams Merchandising Consultant Relationship Specialty Start Date End Date Andria Parks MD [address] [place] [address] [place] [address] PCP - General Pediatrics 07/27/23 09/15/23 documented as of this encounter
--- OUTSIDE RECORDS SUMMARY | 2025-09-22 10:10 | XMS_ITS | Encounter Summary ---
Author Organization [facility] Address [address] [place] [address] Phone Care Team Providers Care Natural Gas Treating Unit Operator Name Role Phone Andria Parks MD Primary Care Provider Encounter Details Date Type Department Care Team (Late st Contact Info) Description 10/16/2016 Documentation [facility] [place] Family Medicine [address] [place], [place] [phone] Family Medicine, Physician [address] [place], [place] [address] Social History Tobacco Use Types Packs/Day Years [...] on filedocumented in this encounter Care Teams Natural Gas Treating Unit Operator Relationship Specialty Start Date End Date Andria Parks MD [address] [place] [address] [place] [address] PCP - General Pediatrics 07/27/23 09/15/23 documented as of this encounter
--- OUTSIDE RECORDS SUMMARY | 2025-09-22 10:10 | XMS_ITS | Encounter Summary ---
Author Organization [facility] Address [address] [place] [address] Phone Care Team Providers Care Water Fabricator Operator Name Role Phone Andria Parks MD Primary Care Provider [phone] Reason for Visit * Reason Comments Med Refill Encounter Details Date Type Department Care Team (Late st Contact Info) Description 02/13/2020 Refill [facility] [place] [address] [place] [address] Andria Parks MD [address] [place] [address] PCOS (polycystic ovarian syndrome) Social History Tobacco [...] ovaries documented in this encounter Care Teams Water Fabricator Operator Relationship Specialty Start Date End Date Andria Parks MD [address] [place] [address] [place] [address] PCP - General Pediatrics 07/27/23 09/15/23 documented as of this encounter
--- OUTSIDE RECORDS SUMMARY | 2025-09-22 10:10 | XMS_ITS | Encounter Summary ---
Author Organization [facility] Address [address] [place] [address] Phone Care Team Providers Care Rotary Lithographic Press Operator Name Role Phone Andria Parks MD Primary Care Provider [phone] Reason for Visit * Reason Comments Med Refill Encounter Details Date Type Department Care Team (Late st Contact Info) Description 06/05/2022 Refill [facility] [place] [address] [place] [address] Andria Parks MD [address] [place] [address] PCOS (polycystic ovarian syndrome) Social History Tobacco [...] is requesting BC refill. Pt transferred to lead front end developer to book PE. * Telephone Encounter - Cheri Xiao LPN - 06/05/2022 8:50 AM EDT TEEN RELEASE Faxed refill request / last PE 05/20/21 no pending appts Call to pt [phone] not receiving incoming calls / call to [phone] message left to call theoffice documented in this encounter Plan of Treatment Not on file documented as of this encounter Visit Diagnoses Diagnosis PCOS (polycystic ovarian syndrome) Polycystic ovaries documented in this encounter Care Teams Rotary Lithographic Press Operator Relationship Specialty Start Date End Date Andria Parks MD [address] [facility] [place] [address] PCP - General Pediatrics 07/27/23 09/15/23 documented as of this encounter
--- OUTSIDE RECORDS SUMMARY | 2025-09-22 10:10 | XMS_ITS | Encounter Summary ---
Author Organization [facility] Address [address] [place] [address] Phone Care Team Providers Care Furniture Detailer Name Role Phone Andria Parks MD Primary Care Provider Encounter Details Date Type Department Care Team (Late st Contact Info) Description 04/18/2013 Documentation [facility] [place] [address] [place], [place] [phone] Family Medicine, Physician [address] [place], [place] [address] Social History Tobacco Use Types Packs/Day Years [...] on filedocumented in this encounter Care Teams Furniture Detailer Relationship Specialty Start Date End Date Andria Parks MD [address] [place] [address] [place] [address] PCP - General Pediatrics 07/27/23 09/15/23 documented as of this encounter
--- OUTSIDE RECORDS SUMMARY | 2025-09-22 10:10 | XMS_ITS | Encounter Summary ---
Author Organization [facility] Address [address] [place] [address] Phone Care Team Providers Care Metal Casket Maker Name Role Phone Andria Parks MD Primary Care Provider [phone] Reason for Visit * Reason Comments Med Refill Encounter Details Date Type Department Care Team (Late st Contact Info) Description 10/24/2019 Refill [facility] [place] [address] [place] [address] Andria Parks MD [address] [place] [address] PCOS (polycystic ovarian syndrome) Social History Tobacco [...] ovaries documented in this encounter Care Teams Metal Casket Maker Relationship Specialty Start Date End Date Andria Parks MD [address] [place] [address] [place] [address] PCP - General Pediatrics 07/27/23 09/15/23 documented as of this encounter
== END 2025-09-22 09:50 | disposition home or self-care (01) ==
LOC: HO.HCS 09:07
PROVIDERS: Visit Provider Internal Medicine Cardiovascular Disease
DX: R55 Syncope and collapse (principal)
CPT/HCPCS: 93010; 99204

== ENCOUNTER 2025-09-22 10:58 | Outpatient (AMB) | payer BC, SELFPAY ==
[2025-09-22 11:00] VITALS: BP 120/80; PULSE 71; TEMP 36.1; O2SAT 99; BMI 34.0
--- NOTE | 2025-09-22 11:00 | MHC.PC.OV ---
Vital Signs 09/22/25 11:00 Height 5 ft 1 in Weight 180 lb 2 oz BMI 34.0 BP 120/80 Blood Pressure Location Lt brachial Position Sitting Pulse 71 Pulse Source Pulse Oximeter Temp 96.9 F Temp Source Temporal Artery Scan Pulse Oximetry (%) 99 Oxygen Delivery Method Room Air Intake Visit Reasons: 3M follow up Allergies chickpea Allergy (Mild, Verified 09/22/25 11:14) Difficulty Breathing kiwi Allergy (Mild, Verified 09/22/25 11:14) Swelling nectarine Adverse Reaction (Severe, Verified 09/22/25 11:14) Anaphylaxis Medication List - Last Reconciled 09/22/25 by Milly Brown PA-C albuterol sulfate 90 mcg/actuation inhalation dupilumab (Dupixent) 300 mg subcut Q2W epinephrine (EpiPen) 0.3 mg (0.3 mL) IM Q10M PRN hydroxyzine HCl 25 mg PO BEDTIME norgestimate-ethinyl estradiol 0.18/0.215/0.25 mg-0.025 mg (Cou-Qm-Foqhon) 1 tab PO DAILY spironolactone 25 mg PO DAILY Tobacco use date assessed: 05/04/25 Dental Screening Dental Screen Date: 05/04/25 Did you have a dental visit in the last 12 months?: No Did you have a dental problem in the last 6 months where you did not have access to dental care?: No Was dental information given to patient?: Patient has dentist HPI 3M follow up HPI Details 24-year-old female with past medical history of PCOS, asthma, eczema last seen 04/2025 coming in for follow up. In review of the notes, patient was seen by Cardiology earlier today. Patient was seen by endocrinology 07/2025 recommend nutrition referral, continued on OCP and spironolactone in order for blood work and plan to follow up in 6 months. Presenting for a follow-up visit to manage multiple chronic conditions. Regarding her dermatologic condition, the patient has a history of eczema since infancy and is followed by [facility]. She recently started Dupixent, having taken her third dose, and reports it has helped with the cracking on her hands, but she continues to experience extremely itchy skin and a rash on her neck. For exercise-induced symptoms, she saw a labor contract analyst this morning about an issue that occurs with running, where she feels she may pass out and cannot breathe. 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 1. Little interest or pleasure in doing things: not at all 2. Feeling down, depressed, or hopeless: not at all 3. Trouble falling or staying asleep, or sleeping too much: several days 4. Feeling tired or having little energy: several days 5. Poor appetite or overeating: not at all 6. Feeling bad about yourself - or that you are a failure or have let yourself or your family down: not at all 7. Trouble concentrating on things, such as reading the newspaper or watching television: not at all 8. Moving or speaking so slowly that other people could have noticed. Or the opposite - being so fidgety or restless that you have been moving around a lot more than usual: not at all 9. Thoughts that you would be better off or of hurting yourself in some way: not at all Total score: 2 Depression Screening Interpretation: Negative Depression Screening Done: Yes Source: Developed by Drs. Elliot Womack, Klarissa Weiner, Ned Quiroga and colleagues, with an educational yamel from [employer]. Thrive Questionnaire Date Thrive assessed: 05/04/25 I am a: Patient What is your living situation today?: I have a steady place to live Within the past 12 months, did the food you bought not last and you didn't have the money to get more?: Never true Within the past 12 months, did you worry whether your food would run out before you got money to buy more?: Never true Do you have trouble paying for medicines?: No Do you have trouble getting transportation to medical appointments?: No Do you have trouble paying your heating and electricity bill?: No Do you have trouble taking care of your child, family member or friend?: No Do you have trouble with day-to-day activities such as bathing, preparing meals, shopping, managing finances, etc.?: No Are you currently unemployed and looking for a job?: No Are you interested in more education?: No Please select the resources that you would like help with: None Currently or been in a relationship where the following occur: No concerns reported THRIVE Score: 0 AUDIT C Alcohol Use Questionnaire (AUDIT-C) 1. How often do you have a drink containing alcohol?: 2-3 times a week 2. How many drinks containing alcohol do you have on a typical day when you are drinking?: 1 or 2 3. How often do you have six or more drinks on one occasion?: Never Total Score: 3 Score Reviewed/Action Taken: No ZACK-7 AMB Questionnaire ZACK-7 Date ZACK - 7 assessed: 05/04/25 Feeling nervous, anxious, or on edge: 1 = Several days Not being able to stop or control worryin = Not at all Worrying too much about different things: 0 = Not at all Trouble relaxin = Several days Being so restless that it is hard to sit still: 0 = Not at all Becoming easily annoyed or irritable: 0 = Not at all Feeling afraid as if something awful might happen: 1 = Several days Total ZACK-7 score (0-4 normal; 5-9 mild; 10-14 moderate; 15-21 severe): 3 Source: Developed by Drs. Elliot Womack, Klarissa Weiner, Ned Quiroga and colleagues, with an educational yamel from [employer]. ZACK-7 Assessment Billing ZACK-7 Assessment Tool: ZACK-7 Assessment 75223 Review of Systems Const Denies body aches, Denies chills, Denies fever(s), Denies headache(s) and Denies poor appetite Eyes Reports no additional complaints ENT Denies dizziness and Denies headache(s) Card Reports as per HPI, Denies chest pain, Denies syncope, Denies edema, Denies irregular heart rhythm, Denies lightheadedness and Denies dyspnea Resp Denies cough and Denies dyspnea GI Denies abdominal pain, Denies constipation, Denies diarrhea, Denies nausea and Denies vomiting Reports no additional complaints Musc Reports no additional complaints and Denies abnormal gait Skin/Breast Reports system reviewed and no additional complaints, except as documented Neuro Denies abnormal gait, Denies dizziness, Denies syncope and Denies headache(s) Psych Reports no additional complaints Physical exam (Primary Care) Vital Signs: Last Vital Signs Temp 96.9 F 09/22/25 11:00 Pulse 71 09/22/25 11:00 BP 120/80 09/22/25 11:00 Pulse Ox 99 09/22/25 11:00 Oxygen Delivery Method Room Air 09/22/25 11:00 BMI result Body Mass Index 34.0 Tobacco/Smoking Status: Tobacco use Status Tobacco use date assessed 05/04/25 09/22/25 11:06 Patient Tobacco Use Status Never used Tobacco 09/22/25 11:06 e-Cigarette/Vaping Use Currently Using 09/22/25 11:06 PHQ-9: PHQ-9 Score PHQ-9: Total score 2 09/22/25 11:14 Depression Screening Interpretation: Negative Thrive Assessment: Date of Thrive Assessment Date Thrive assessed 05/04/25 09/22/25 11:06 Currently or been in a relationship where the following occur: No concerns reported Const General: cooperative, healthy appearing, comfortable and no acute distress Orientation/consciousness: patient oriented x3 HENMT Head: Yes normocephalic Ears: hearing grossly normal bilaterally General nose exam: Normal external nose present Eyes General: appearance normal, both eyes and all related structures Conjunctivae: conjunctivae normal Neck Neck: Yes full ROM and Yes no lymphadenopathy Resp Effort & Inspection: normal respiratory effort Auscultation: clear to auscultation bilaterally, no crackles, no rales, no rhonchi and no wheezes Cardio Rate: regular rate Rhythm: regular rhythm Skin General skin exam: no rashes or lesions noted Neuro General: patient oriented x3 Gait exam (Neuro): Normal gait present Extrem General: Yes normal to inspection, Yes full ROM and No edema Psych Affect: normal affect Attitude: cooperative Insight: Good insight present (Psych) Judgement: Good judgement present (Psych) Coding Level of Care Code Est Pt Level 3 (85586) Diagnoses PCOS (polycystic ovarian syndrome) E28.2 Mild intermittent asthma without complication J45.20 Asthma complication type: uncomplicated Asthma persistence: intermittent Asthma severity: mild Near syncope R55 Obesity (BMI 30-39.9) E66.9 Eczema, unspecified type L30.9 Eczema type: unspecified Additional Codes ZACK-7 Assessment Billing - ZACK-7 Assessment Tool: ZACK-7 Assessment 39742 ([id number]) Assessment & Plan Assessment & Plan (1) PCOS (polycystic ovarian syndrome): Code(s): E28.2 - Polycystic ovarian syndrome Category: Medical Plan: Continue on spironolactone oral contraceptive pill. [facility] [place] ordered for blood work and plan to follow up in 6 months. Continue to follow with gynecology as well (2) Asthma: Code(s): J45.909 - Unspecified asthma, uncomplicated Category: Medical Qualifiers: Asthma complication type: uncomplicated Asthma persistence: intermittent Asthma severity: mild Qualified Code(s): J45.20 - Mild intermittent asthma, uncomplicated Plan: Asthma currently controlled on present medications. Continue on albuterol as needed.? Avoid triggers such as allergies. Dupixent has been helping with the asthma as well and has not had to use her inhaler at all. (3) Near syncope: Code(s): R55 - Syncope and collapse Category: Medical Plan: Patient was seen by Cardiology earlier today planning for echocardiogram, stress test and Holter monitor further evaluation. (4) Obesity (BMI 30-39.9): Code(s): E66.9 - Obesity, unspecified Category: Medical Plan: Healthy diet and regular exercise is encouraged. Patient does not engage in strenuous exercise due to near syncope episodes. (5) Eczema: Code(s): L30.9 - Dermatitis, unspecified Category: Medical Qualifiers: Eczema type: unspecified Qualified Code(s): L30.9 - Dermatitis, unspecified Plan: She is currently on Dupixent with [facility] and following with them every two weeks. Plan This note was constructed using voice recognition software. While every effort has been made to ensure accuracy and crepe maker, still areas may have been included sometimes these areas may affect the content or meeting of the given symptoms. Total time spent caring for the patient today was 20 minutes. This includes time spent before the visit reviewing the chart, time spent during the visit, and time spent after the visit and documentation. Patient was informed and verbally consented to the use of an ambient scribe for clinic note documentation during this visit. Orders: Orders Complete Blood Count Auto Diff Today Z13.0 - Encounter for screening for diseases of the blood and blood-forming organs and certain disorders involving the immune mechanism
== END 2025-09-22 11:40 | disposition home or self-care (01) ==
LOC: HO.HMCH 10:59
DX: E28.2 Polycystic ovarian syndrome (principal); J45.20 Mild intermittent asthma, uncomplicated; Z68.34 Body mass index [BMI] 34.0-34.9, adult; E66.9 Obesity, unspecified; R55 Syncope and collapse; L30.9 Dermatitis, unspecified

== ENCOUNTER → 2025-10-18 08:16 | Outpatient (REF) | payer BC, SELFPAY ==
--- OUTSIDE RECORDS SUMMARY | 2025-10-18 08:23 | XMS_ITS | Clinical Summary ---
Author Organization [facility] Address [address] [place] [phone] Phone Care Team Providers Care 4 H Youth Development Specialist Name Role Phone Thea Alvarenga MD Primary Care Provider [phone] Allergies Active Allergy Reactions Criticality Noted Date [...] 6.7 g 11 12/05/19 25 026 Active Wts-Jk-Djljrg 0.18/0.215/0.2 5 mg-0.025 mg per tablet TAKE 1 TABLET BY MOUTH 1 TIME EACH DAY. 84 tablet 1 09/21/20 25 Active Sho-Fw-Ettwar 0.18/0.215/0.2 5 mg-0.025 mg per tablet Take [...] Screening 06/09/2024 Depression Screening 11/16/2024 COVID-19 Vaccine (2024- season) 2025 Influenza Vaccine (#1) 2025 Cholesterol [...] Relevant [place] [id number] [facility] [[email or web address]] Care Teams 4 H Youth Development Specialist Relationship Specialty Start Date End Date Thea Alvarenga MD [address] [place] [phone] PCP - General 09/21/23
--- OUTSIDE RECORDS SUMMARY | 2025-10-18 08:23 | XMS_ITS | Encounter Summary ---
Author Organization [facility] Address [address] [place] [address] Phone Care Team Providers Care Director Of Knowledge Management Name Role Phone Andria Parks MD Primary Care Provider [phone] Reason for Visit * Reason Comments Med Refill Encounter Details Date Type Department Care Team (Late st Contact Info) Description 06/05/2022 Refill [facility] [address] [place] [address] Andria Parks MD [address] [place] [address] PCOS (polycystic ovarian syndrome) Social History Tobacco [...] is requesting BC refill. Pt transferred to test desk operator to book PE. * Telephone Encounter - Cheri Xiao LPN - 06/05/2022 8:50 AM EDT TEEN RELEASE Faxed refill request / last PE 05/20/21 no pending appts Call to pt [phone] not receiving incoming calls / call to [phone] message left to call theoffice documented in this encounter Plan of Treatment Not on file documented as of this encounter Visit Diagnoses Diagnosis PCOS (polycystic ovarian syndrome) Polycystic ovaries documented in this encounter Care Teams Director Of Knowledge Management Relationship Specialty Start Date End Date Andria Parks MD [address] [facility] [place] [address] PCP - General Pediatrics 07/27/23 09/15/23 documented as of this encounter
--- OUTSIDE RECORDS SUMMARY | 2025-10-18 08:24 | XMS_ITS | Encounter Summary ---
Author Organization [facility] Address [address] [place] [address] Phone Care Team Providers Care Grain Drier Name Role Phone Andria Parks MD Primary Care Provider Encounter Details Date Type Department Care Team (Late st Contact Info) Description 10/16/2016 Documentation [facility] Family Medicine [address] [place], [place] [phone] Family Medicine, Physician [address] [place], [place] [address] Social History Tobacco Use Types Packs/Day Years [...] on filedocumented in this encounter Care Teams Grain Drier Relationship Specialty Start Date End Date Andria Parks MD [address] [place] [address] [place] [address] PCP - General Pediatrics 07/27/23 09/15/23 documented as of this encounter
--- OUTSIDE RECORDS SUMMARY | 2025-10-18 08:24 | XMS_ITS | Encounter Summary ---
Author Organization [facility] Address [address] [place] [address] Phone Care Team Providers Care Federal Air Marshal Name Role Phone Andria Parks MD Primary Care Provider [phone] Encounter Details Date Type Department Care Team (Late st Contact Info) Description 10/16/2016 Documentation [facility] Family Medicine [address] [place], [place] [phone] Family Medicine, Physician [address] [place], [place] [address] Social History Tobacco Use Types Packs/Day Years [...] on filedocumented in this encounter Care Teams Federal Air Marshal Relationship Specialty Start Date End Date Andria Parks MD [address] [place] [address] [place] [address] PCP - General Pediatrics 07/27/23 09/15/23 documented as of this encounter
--- OUTSIDE RECORDS SUMMARY | 2025-10-18 08:24 | XMS_ITS | Encounter Summary ---
Author Organization [facility] Address [address] [place] [phone] Phone Care Team Providers Care Patient Coordinator Name Role Phone Andria Parks MD Primary Care Provider Encounter Details Date Type Department Care Team (Late st Contact Info) Description 07/02/2017 Conversion Encounter [facility] [address] [place] [address] Social History Tobacco Use Types Packs/Day Years [...] on filedocumented in this encounter Care Teams Patient Coordinator Relationship Specialty Start Date End Date Andria Parks MD [address] [place] [address] PCP - General Pediatrics 07/27/23 09/15/23 documented as of this encounter
--- OUTSIDE RECORDS SUMMARY | 2025-10-18 08:24 | XMS_ITS | Encounter Summary ---
Author Organization [facility] Address [address] [place] [address] Phone Care Team Providers Care Nuclear Power Plant Engineer Name Role Phone Andria Parks MD Primary Care Provider [phone] Reason for Visit * Reason Comments Med Refill Encounter Details Date Type Department Care Team (Late st Contact Info) Description 02/13/2020 Refill [facility] [place] [address] [place] [address] Andria Parks MD [address] [place] [address] PCOS (polycystic ovarian syndrome) Social History Tobacco [...] documented in this encounter Care Teams Nuclear Power Plant Engineer Relationship Specialty Start Date End Date Andria Parks MD [address] [place] [address] [place] [address] PCP - General Pediatrics 07/27/23 09/15/23 documented as of this encounter
--- OUTSIDE RECORDS SUMMARY | 2025-10-18 08:24 | XMS_ITS | Encounter Summary ---
Author Organization [facility] Address [address] [place] [phone] Phone Care Team Providers Care Gas Operations Superintendent Name Role Phone Andria Parks MD Primary Care Provider Encounter Details Date Type Department Care Team (Late st Contact Info) Description 10/16/2016 Documentation [facility] [place] Family Medicine [address] [place], [place] [phone] Family Medicine, Physician [address] [place], [place] [address] Social History Tobacco Use Types Packs/Day Years [...] on filedocumented in this encounter Care Teams Gas Operations Superintendent Relationship Specialty Start Date End Date Andria Parks MD [address] [place] [address] [place] [address] PCP - General Pediatrics 07/27/23 09/15/23 documented as of this encounter
--- OUTSIDE RECORDS SUMMARY | 2025-10-18 08:24 | XMS_ITS | Encounter Summary ---
Author Organization [facility] Address [address] [place] [phone] Phone Care Team Providers Care Steam Distribution Supervisor Name Role Phone Andria Parks MD Primary Care Provider [phone] Reason for Visit * Reason Comments Med Refill Encounter Details Date Type Department Care Team (Late st Contact Info) Description 10/24/2019 Refill [facility] [place] [address] [place] [address] Andria Parks MD [address] [place] [address] PCOS (polycystic ovarian syndrome) Social History Tobacco [...] ovaries documented in this encounter Care Teams Steam Distribution Supervisor Relationship Specialty Start Date End Date Andria Parks MD [address] [place] [address] [place] [address] PCP - General Pediatrics 07/27/23 09/15/23 documented as of this encounter
--- OUTSIDE RECORDS SUMMARY | 2025-10-18 08:24 | XMS_ITS | Encounter Summary ---
Author Organization [facility] Address [address] [place] [phone] Phone Care Team Providers Care Information Resources Director Name Role Phone Andria Parks MD Primary Care Provider [phone] Encounter Details Date Type Department Care Team (Late st Contact Info) Description 01/07/2017 Documentation [facility] [address] [place], [place] [phone] Family Medicine, Physician [address] [place], [place] [address] Social History Tobacco Use Types Packs/Day Years [...] on filedocumented in this encounter Care Teams Information Resources Director Relationship Specialty Start Date End Date Andria Parks MD [address] [place] [address] [place] [address] PCP - General Pediatrics 07/27/23 09/15/23 documented as of this encounter
--- OUTSIDE RECORDS SUMMARY | 2025-10-18 08:24 | XMS_ITS | Encounter Summary ---
Author Organization [facility] Address [address] [place] [address] Phone Care Team Providers Care Bulk Delivery Driver Name Role Phone Andria Parks MD Primary Care Provider Encounter Details Date Type Department Care Team (Late st Contact Info) Description 10/16/2016 Documentation [facility] Family Medicine [address] [place], [place] [phone] Family Medicine, Physician [address] [place], [place] [address] Social History Tobacco Use Types Packs/Day Years [...] on filedocumented in this encounter Care Teams Bulk Delivery Driver Relationship Specialty Start Date End Date Andria Parks MD [address] [place] [address] [place] [address] PCP - General Pediatrics 07/27/23 09/15/23 documented as of this encounter
--- OUTSIDE RECORDS SUMMARY | 2025-10-18 08:24 | XMS_ITS | Encounter Summary ---
Author Organization [facility] Address [address] [place] [phone] Phone Care Team Providers Care Retail Coverage Merchandiser Lead Name Role Phone Andria Parks MD Primary Care Provider Encounter Details Date Type Department Care Team (Late st Contact Info) Description 04/18/2013 Documentation [facility] [place] [address] [place], [place] [phone] Family Medicine, Physician [address] [place], [place] [address] Social History Tobacco Use Types Packs/Day Years [...] on filedocumented in this encounter Care Teams Retail Coverage Merchandiser Lead Relationship Specialty Start Date End Date Andria Parks MD [address] [place] [address] [place] [address] PCP - General Pediatrics 07/27/23 09/15/23 documented as of this encounter
--- OUTSIDE RECORDS SUMMARY | 2025-10-18 08:24 | XMS_ITS | Clinical Summary ---
Author Organization [facility] Address [address] [place] [address] Phone Care Team Providers Care Reed Repairer Name Role Phone Unavailable Primary Care Provider [...] 1 07/28/20 23 Active norgestimate-ethiny l estradiol (Mpm-Wy-Hnvfil) 0.18/0.215/0.25 MG-25 MCG per tabletIndications:P COS (polycystic [...] does not remember her name (was in [place]) Seasonal allergic rhinitis 05/16/2020 Overview (05/16/2020): On [...] AM EST): Followed by replacement of Dr. Howlel in [place]; pt reports using all Cerave products and [...] of Migraines, No family history of Sudden /SD under age 55, No family history of [...] Completed 07/28/2023, 05/16/2020 Procedures * Due to [place] [employer] law, this organization might not be sharing sensitive test results. Procedure Name Priority Date/Time Associated Diagnosis Comments CHLAMYDIA AND GONORRHEA, AMPLIFIED Routine 07/28/2023 4:12 PM EDT Screening examination for bacterial and spirochetal disease from Last 3 Months or Most Recently Relevant to Health Maintenance Results * Due to [place] [employer] law, this organization might not be sharing sensitive test results. * Chlamydia and Gonorrhea, Amplified (07/28/2023 4:12 PM EDT) Chlamydia Trachomatis, DNA Probe NEGATIVE (NEG) [facility] Comment: No Chlamydia Trachomatis RNA detected in this patient's sample (REFERENCE RANGE/NORMAL VALUE: NOT DETECTED) Note: This test uses banking center manager- mediated amplification method to detect rRNA from C. Trachomatis URINE GC AMP PROBE NEGATIVE (NEG) [facility] Comment: No Neisseria Gonorrhoeae RNA detected in this patient's sample (REFERENCE RANGE/NORMAL VALUE: NOT DETECTED) NOTE: This test uses banking center manager-mediated amplification method to detect rRNA from N.Gonorrhoeae. [...] without risk of sexual abuse. Consult the [facility] if needed. Contact phone number . Therapeutic failure or success cannot be determined with the Aptima Combo2 assay since nucleic acid may persist following appropriate antimicrobial therapy. The Centers for Disease Control and Prevention (CDC) recommends confirmatory retesting using culture or a different nucleic acid amplification test when positive results occur, if indicated. Testing performed or reported by [facility], a Service of [facility], [address] [place] [address] Rogers Reyes MD, International Account Representative [facility]# [id number] Urine (Urine) 07/28/2023 4:1 2 PM EDT 07/29/2023 12:10 AM EDT Andria Parks MD LAB MICROBIOLOGY - GENERAL ORDERABLES Final Result Performing Organization Address City/State/[facility] Co de Phone Number [facility] from Last 3 Months or Most Recently Relevant to [place] [phone] [facility] [place] [address] [facility]
== END ==
LOC: HO.CARD 08:16
PROVIDERS: Visit Provider Internal Medicine Cardiovascular Disease
DX: R55 Syncope and collapse (principal)
CPT/HCPCS: 93246

== ENCOUNTER → 2025-10-18 08:18 | Outpatient (BNV) | payer BC, SELFPAY | PROVIDERS: Visit Provider Internal Medicine | DX: I49.49 Other premature depolarization (principal) | CPT/HCPCS: 93248 ==

== ENCOUNTER → 2025-11-02 09:19 | Outpatient (REF) | payer BC, SELFPAY ==
--- NOTE | 2025-11-02 09:22 | CA_ITS ---
Acquisition Time: 2025-11-02 09:33:24 Total Exercise Time: 00:07:26 Test Indications: Syncope Medications: ALBUTEROL INHALER DUPIXENT BC SPIRONALACTONE HYDROXIZINE Protocol: ELI Max HR: 184 BPM 93% of Pred: 197 BPM Max BP: 132/60 mmHG Max Work Load: 13.4 METS Exercise stress test with exercise 7 mins 26 secs of Eli Protocol started at Stage 2 and advanced every 2 and half minutes, achieving 91% MPHR, requesting to stop due to SOB, no chest pain, mild dizziness upon stopping the treadmill that resolved quickly, without any arrythmias, with normotensive response to exercise. Without any EKG chnages meeting criteria for ischemia. In recovery, breathing improved and pt feeling back to baseline. Test reviewed with Dr. Cho. Referred By: Zachary Cho Electronically Signed By: Hari Leiva
--- OUTSIDE RECORDS SUMMARY | 2025-11-02 10:42 | XMS_ITS | Encounter Summary ---
Author Organization [facility] Address [address] [place] [address] Phone Care Team Providers Care Bank Vault Attendant Name Role Phone Andria Parks MD Primary Care Provider Encounter Details Date Type Department Care Team (Late st Contact Info) Description 10/16/2016 Documentation [facility] [place] Family Medicine [address] [place], [place] [id number] Family Medicine, Physician [address] [place], [place] [phone] Social History Tobacco Use Types Packs/Day Years [...] on filedocumented in this encounter Care Teams Bank Vault Attendant Relationship Specialty Start Date End Date Andria Parks MD [address] [place] [address] [place] [address] PCP - General Pediatrics 07/27/23 09/15/23 documented as of this encounter
--- OUTSIDE RECORDS SUMMARY | 2025-11-02 10:42 | XMS_ITS | Clinical Summary ---
Author Organization [facility] Address [address] [place] [address] Phone Care Team Providers Care Senior Project Leader/Team Lead Name Role Phone Unavailable Primary Care [...] 1 07/28/20 23 Active norgestimate-ethiny l estradiol (Vgy-Op-Awgvfz) 0.18/0.215/0.25 MG-25 MCG per tabletIndications:P COS (polycystic [...] does not remember her name (was in [place]) Seasonal allergic rhinitis 05/16/2020 Overview (05/16/2020): On [...] Followed by replacement of Dr. Howell in [place]; pt reports using all Cerave products and [...] Completed 07/28/2023, 05/16/2020 Procedures * Due to [place] [employer] law, this organization might not be sharing sensitive test results. Procedure Name Priority Date/Time Associated Diagnosis Comments CHLAMYDIA AND GONORRHEA, AMPLIFIED Routine 07/28/2023 4:12 PM EDT Screening examination for bacterial and spirochetal disease from Last 3 Months or Most Recently Relevant to Health Maintenance Results * Due to [place] [employer] law, this organization might not be sharing sensitive test results. * Chlamydia and Gonorrhea, Amplified (07/28/2023 4:12 PM EDT) Chlamydia Trachomatis, DNA Probe NEGATIVE (NEG) [facility] Comment: No Chlamydia Trachomatis RNA detected in this patient's sample (REFERENCE RANGE/NORMAL VALUE: NOT DETECTED) Note: This test uses test lead application testing- mediated amplification method to detect rRNA from C. Trachomatis URINE GC AMP PROBE NEGATIVE (NEG) [facility] Comment: No Neisseria Gonorrhoeae RNA detected in this patient's sample (REFERENCE RANGE/NORMAL VALUE: NOT DETECTED) NOTE: This test uses test lead application testing-mediated amplification method to detect rRNA from N.Gonorrhoeae. [...] risk of sexual abuse. Consult the [facility] if needed. Contact phone number . Therapeutic failure or success cannot be determined with the Aptima Combo2 assay since nucleic acid may persist following appropriate antimicrobial therapy. The Centers for Disease Control and Prevention (CDC) recommends confirmatory retesting using culture or a different nucleic acid amplification test when positive results occur, if indicated. Testing performed or reported by [facility], a Service of [facility], [address] [place] [address] Rogers Reyes MD, Travel Med Surg Rn [facility]# [id number] Urine (Urine) 07/28/2023 4:1 2 PM EDT 07/29/2023 12:10 AM EDT Andria Parks MD LAB MICROBIOLOGY - GENERAL ORDERABLES Final Result Performing Organization Address City/State/[facility] Co de Phone Number [facility] from Last 3 Months or Most Recently Relevant to [place] [phone] [facility] [place] [phone] [facility]
--- OUTSIDE RECORDS SUMMARY | 2025-11-02 10:42 | XMS_ITS | Encounter Summary ---
Author Organization [facility] Address [address] [place] [address] Phone Care Team Providers Care Food Cooking Machine Operator Name Role Phone Andria Parks MD Primary Care Provider [phone] Reason for Visit * Reason Comments Med Refill Encounter Details Date Type Department Care Team (Late st Contact Info) Description 02/13/2020 Refill [facility] [place] [address] [place] [address] Andria Parks MD [address] [place] [address] PCOS (polycystic ovarian syndrome) Social History Tobacco [...] ovaries documented in this encounter Care Teams Food Cooking Machine Operator Relationship Specialty Start Date End Date Andria Parks MD [address] [place] [address] [place]ing[place] [address] PCP - General Pediatrics 07/27/23 09/15/23 documented as of this encounter
--- OUTSIDE RECORDS SUMMARY | 2025-11-02 10:42 | XMS_ITS | Clinical Summary ---
Author Organization [address] [place] [address] [place] [phone] Phone Care Team Providers Care Shaker Tender Name Role Phone Thea Alvarenga MD Primary Care Provider [phone] Allergies Active Allergy Reactions Criticality Noted Date [...] 6.7 g 11 5 12/05/19 26 Active Tpn-Sw-Szxsvj 0.18/0.215/0.25 mg-0.025 mg per tablet TAKE 1 TABLET BY MOUTH 1 TIME EACH DAY. 84 tablet 1 5 Active Active Problems Problem Noted Date [...] on file Sexual Orientation Not on file Last Filed Vital Signs Vital Sign Reading [...] Results * Hepatitis C Screening (12/25/2023) Pathologist [facility] Hepatitis C Screening Abstracted Historical Provider HEALTH MAINTENANCE Final Result * Lipid panel (12/25/2023) Pathologist [facility] LDL/HDL Ratio 2 0 - 4 Triglycerides 38 0 - 150 mg/dL Cholesterol 158 0 - 200 mg/dL HDL 88 >=40 mg/dL LDL Cholesterol 63 0 - 100 mg/dL Blood Venous blood specimen / Unknown Historical Provider LAB BLOOD ORDERABLES Sandrine l Result from Last 3 Months or Most Recently Relevant to [place] [id number] [facility] Care Teams Shaker Tender Relationship Specialty Start Date End Date Thea Alvarenga MD [address] [place] [phone] PCP - General 09/21/23
--- OUTSIDE RECORDS SUMMARY | 2025-11-02 10:42 | XMS_ITS | Encounter Summary ---
Author Organization [facility] Address [address] [place] [address] Phone Care Team Providers Care Manager Travel Name Role Phone Andria Parks MD Primary Care Provider Encounter Details Date Type Department Care Team (Late st Contact Info) Description 01/07/2017 Documentation [facility] [place] Family Medicine [address] [place], [place] [phone] Family Medicine, Physician [address] [place], [place] [address] Social History Tobacco Use Types Packs/Day Years [...] on filedocumented in this encounter Care Teams Manager Travel Relationship Specialty Start Date End Date Andria Parks MD [address] [place] [address] [place] [address] PCP - General Pediatrics 07/27/23 09/15/23 documented as of this encounter
--- OUTSIDE RECORDS SUMMARY | 2025-11-02 10:42 | XMS_ITS | Encounter Summary ---
Author Organization [facility] Address [address] [place] [address] Phone Care Team Providers Care Claim Review Medical Director Name Role Phone Andria Parks MD Primary Care Provider Encounter Details Date Type Department Care Team (Late st Contact Info) Description 10/16/2016 Documentation [facility] [place] Family Medicine [address] [place], [place] [phone] Family Medicine, Physician [address] [place], [place] [address] Social History Tobacco Use Types Packs/Day Years [...] on filedocumented in this encounter Care Teams Claim Review Medical Director Relationship Specialty Start Date End Date Andria Parks MD [address] [place] [address] [place] [address] PCP - General Pediatrics 07/27/23 09/15/23 documented as of this encounter
--- OUTSIDE RECORDS SUMMARY | 2025-11-02 10:42 | XMS_ITS | Encounter Summary ---
Author Organization [facility] Address [address] [place] [address] Phone Care Team Providers Care Semiconductor Processing Technician Name Role Phone Andria Parks MD Primary Care Provider [phone] Reason for Visit * Reason Comments Med Refill Encounter Details Date Type Department Care Team (Late st Contact Info) Description 10/24/2019 Refill [facility] [place] [address] [place] [address] Andria Parks MD [address] [place] [address] PCOS (polycystic ovarian syndrome) Social History Tobacco [...] ovaries documented in this encounter Care Teams Semiconductor Processing Technician Relationship Specialty Start Date End Date Andria Parks MD [address] [place] [address] [place] [address] PCP - General Pediatrics 07/27/23 09/15/23 documented as of this encounter
--- OUTSIDE RECORDS SUMMARY | 2025-11-02 10:42 | XMS_ITS | Encounter Summary ---
Author Organization [facility] Address [address] [place] [address] Phone Care Team Providers Care Equipment Inspector Name Role Phone Andria Parks MD Primary Care Provider Encounter Details Date Type Department Care Team (Late st Contact Info) Description 07/02/2017 Conversion Encounter [facility] [address] [place] [address] Social History Tobacco Use Types Packs/Day Years [...] on filedocumented in this encounter Care Teams Equipment Inspector Relationship Specialty Start Date End Date Andria Parks MD [address] [place] [address] PCP - General Pediatrics 07/27/23 09/15/23 documented as of this encounter
--- OUTSIDE RECORDS SUMMARY | 2025-11-02 10:42 | XMS_ITS | Encounter Summary ---
Author Organization [facility] Address [address] [place] [address] Phone Care Team Providers Care Glazing Department Supervisor Name Role Phone Andria Parks MD Primary Care Provider Encounter Details Date Type Department Care Team (Late st Contact Info) Description 04/18/2013 Documentation [facility] [place] Family Medicine [address] [place], [place] [phone] Family Medicine, Physician [address] [place], [place] [address] Social History Tobacco Use Types Packs/Day Years [...] on filedocumented in this encounter Care Teams Glazing Department Supervisor Relationship Specialty Start Date End Date Andria Parks MD [address] [place] [address] [place] [address] PCP - General Pediatrics 07/27/23 09/15/23 documented as of this encounter
--- OUTSIDE RECORDS SUMMARY | 2025-11-02 10:42 | XMS_ITS | Encounter Summary ---
Author Organization [facility] Address [address] [place] [address] Phone Care Team Providers Care Comic Book Artist Name Role Phone Andria Parks MD Primary Care Provider Encounter Details Date Type Department Care Team (Late st Contact Info) Description 10/16/2016 Documentation [facility] [place] Family Medicine [address] [place], [place] [phone] Family Medicine, Physician [address] [place], [place] [address] Social History Tobacco Use Types Packs/Day Years [...] on filedocumented in this encounter Care Teams Comic Book Artist Relationship Specialty Start Date End Date Andria Parks MD [address] [place] [address] [place] [address] PCP - General Pediatrics 07/27/23 09/15/23 documented as of this encounter
--- OUTSIDE RECORDS SUMMARY | 2025-11-02 10:42 | XMS_ITS | Encounter Summary ---
Author Organization [facility] Address [address] [place] [address] Phone Care Team Providers Care Poultry Processor Name Role Phone Andria Parks MD Primary Care Provider [phone] Reason for Visit * Reason Comments Med Refill Encounter Details Date Type Department Care Team (Late st Contact Info) Description 06/05/2022 Refill [facility] [place] [address] [place] [address] Andria Parks MD [address] [place] [address] PCOS (polycystic ovarian syndrome) Social History Tobacco [...] BC refill. Pt transferred to front end web developer to book PE. * Telephone Encounter - Cheri Xiao LPN - 06/05/2022 8:50 AM EDT TEEN RELEASE Faxed refill request / last PE 05/20/21 no pending appts Call to pt [phone] not receiving incoming calls / call to [phone] message left to call theoffice documented in this encounter Plan of Treatment Not on file documented as of this encounter Visit Diagnoses Diagnosis PCOS (polycystic ovarian syndrome) Polycystic ovaries documented in this encounter Care Teams Poultry Processor Relationship Specialty Start Date End Date Andria Parks MD [address] [facility] [place] [address] PCP - General Pediatrics 07/27/23 09/15/23 documented as of this encounter
--- OUTSIDE RECORDS SUMMARY | 2025-11-02 10:42 | XMS_ITS | Encounter Summary ---
Author Organization [facility] Address [address] [place] [address] Phone Care Team Providers Care Manager Food Beverage Name Role Phone Andria Parks MD Primary Care Provider Encounter Details Date Type Department Care Team (Late st Contact Info) Description 10/16/2016 Documentation [facility] [place] Family Medicine [address] [place], [place] [phone] Family Medicine, Physician [address] [place], [place] [address] Social History Tobacco Use Types Packs/Day Years [...] filedocumented in this encounter Care Teams Manager Food Beverage Relationship Specialty Start Date End Date Andria Parks MD [address] [place] [address] [place] [address] PCP - General Pediatrics 07/27/23 09/15/23 documented as of this encounter
== END ==
LOC: HO.CARD 09:19
PROVIDERS: Visit Provider Internal Medicine Cardiovascular Disease
DX: R55 Syncope and collapse (principal)
CPT/HCPCS: 93017

== ENCOUNTER → 2025-11-02 09:22 | Outpatient (BNV) | payer BC, SELFPAY | DX: R06.02 Shortness of breath (principal) | CPT/HCPCS: 93016; 93018 ==